=== PATIENT | female | born 1950 | race Caucasian/White ===

== ENCOUNTER 2018-05-10 14:02 | Inpatient (IN) | payer OTHER ==
--- NOTE | 2018-05-10 14:17 | PDOC ---
History of Present Illness - General Chief Complaint: Wound Stated Complaint: HEEL PAIN - History of Present Illness Initial Comments: The pt is a 67F w/ a history of CAD s/p CABG x3, HTN, T2DM, ESRD (iHD T,Th,Sa), BLE neuropathy who presents from [facility] for evaluation of a R heel wound. She reports having the wound since 07/2017, has been having daily wound care, but states that the physician at [facility] was concerned that it may be infected so sent her here for evaluation. Pt reports daily washing of wound and Santyl application. Pt denies fevers/chills, SORIANO, vision changes, chest pain, SOB, abdominal pain, N/ V/C/D. PMH: ESRD, T2DM, neuropathy, HTN, CAD, CHF, GERD, Schizophrenia, Renal osteodystrophy, HLD, hypothyroidism, asthma, s/p [place] type 2 PSH: CABG x3 Allergies: Gabapentin (AMS) SH: Denies x3 PCP: Dr. Azra Flores 05/10/18 14:42 Past History - Past Medical History Allergies/Adverse Reactions: Allergies Allergy/AdvReac Type Severity Reaction Status Date / Time gabapentin Allergy Verified 05/10/18 15:59 Review of Systems - Review of Systems Able to Perform ROS?: Yes Comments:: GENERAL/CONSTITUTIONAL: No fever or chills HEAD, EYES, EARS, NOSE AND THROAT: No change in vision or hearing. No sore throat CARDIOVASCULAR: No chest pain or shortness of breath RESPIRATORY: Denies cough, hemoptysis GASTROINTESTINAL: No nausea, vomiting, diarrhea or constipation MUSCULOSKELETAL: No joint or muscle swelling or pain. No neck or back pain SKIN: No rash NEUROLOGIC: No headache, vertigo, loss of consciousness, or change in strength/ sensation ENDOCRINE: No increased thirst. No abnormal weight change HEMATOLOGIC/LYMPHATIC: +coumadin ALLERGIC/IMMUNOLOGIC: No hives or skin allergy 05/10/18 14:17 Is the patient limited Mohawk proficient: No *Physical Exam - Vital Signs Vital Signs Temp Pulse Resp BP Pulse Ox 97.9 F 65 19 144/72 98 05/10/18 14:02 05/10/18 14:02 05/10/18 14:02 05/10/18 14:02 05/10/18 14:02 05/10/18 15:35 - Physical Exam Comments: GENERAL: Awake, alert, and oriented to person/place/time, in no acute distress HEAD: No signs of trauma, normocephalic, atraumatic EYES: PERRLA, EOMI, sclera anicteric, conjunctiva clear ENT: Hearing grossly normal, nares patent, oropharynx clear without exudates. No uvular deviation. Moist mucosa LUNGS: No distress, speaks full sentences, clear to auscultation bilaterally CHEST: R dialysis catheter in place w/o surrounding erythema and no surrounding TTP HEART: Regular rate and rhythm, normal S1 and S2, no murmurs appreciated ABDOMEN: Soft, nontender, normoactive bowel sounds. No guarding, no rebound EXTREMITIES: R heel wound w/ small fibrinous exudate, healthy appearing/ granulated bed, surrounding fluctuance, no warmth/tracking erythema NEUROLOGICAL: Cranial nerves II through XII grossly intact. Normal speech, BLE decreased sensation to mid-hernández SKIN: Warm, diffuse ecchymosis, wound as above 05/10/18 14:17 ED Treatment Course - LABORATORY CBC & Chemistry Diagram: 05/10/18 15:10 05/10/18 15:10 Medical Decision Making - Medical Decision Making The pt is a 67F w/ a history of T2DM, ESRD (iHD last 05/08/18), CAD s/p CABG x3, HTN who presents for evaluation of a R heel wound ED Course CMP, CBC, ESR, CRP, Blood cultures Wound culture CXR ECG 05/10/18 15:02 Mild leukocytosis to 13.1 Hgb 10.3, no indication for transfusion at this time INR therapeutic at 2.7 Cr 4.2, expected as ESRD LFTs wnl CRP mildly elevated to 0.8 ESR elevated 51 Will give Vanc and Unasyn Case discussed w/ Dr. Kent who accepted the patient for admission -Will place consult order for Dr. Hernandes for ID 05/10/18 16:02 *DC/Admit/Observation/Transfer Diagnosis at time of Disposition: Wound of foot, ESRD (end stage renal disease), S/P CABG x 3 Diabetes Qualifiers: Diabetes mellitus type: type 2 Diabetes mellitus superintendent container terminal insulin use: without superintendent container terminal use Diabetes mellitus complication status: with unspecified complications Qualified Code(s): E11.8 - Type 2 diabetes mellitus with unspecified complications Asthma Qualifiers: Asthma severity: unspecified severity Asthma persistence: intermittent Asthma complication type: unspecified Qualified Code(s): J45.20 - Mild intermittent asthma, uncomplicated GERD (gastroesophageal reflux disease) Qualifiers: Esophagitis presence: esophagitis presence not specified Qualified Code(s): K21.9 - Gastro-esophageal reflux disease without esophagitis - Discharge Dispostion Condition at time of disposition: Fair Decision to Admit order: Yes - Referrals Referrals: Azra Flores [Primary Care Provider] - - Patient Instructions - Post Discharge Activity
[2018-05-10 15:23] VITALS: BMI 43.2
[2018-05-10] MEDS ORDERED: ACETAMINOPHEN 325 MG TABLET (FP) PO ONE (15:32)
[2018-05-10 15:40] LABS: BASO % 0.6 % (0-2.0); EOS % 2.6 % (0-4.5); HEMATOCRIT 30.9 % (32.4-45.2); HEMOGLOBIN 10.3 GM/dL (10.7-15.3); LYMPH % 11.3 % (8-40); MCH 32.6 pg (25.7-33.7); MCHC 33.4 g/dl (32.0-36.0); MEAN CELL VOLUME 97.5 fl (80-96); MEAN PLT VOLUME 8.7 fl (7.5-11.1); MONO % 5.3 % (3.8-10.2); NEUT % 80.2 % (42.8-82.8); PLATELET COUNT 218 K/MM3 (134-434); RBC 3.17 M/mm3 (3.60-5.2); RDW 20.9 % (11.6-15.6); WHITE BLOOD COUNT 13.1 K/mm3 (4.0-10.0)
--- NOTE | 2018-05-10 15:51 | PDOC ---
Attending Attestation - Resident Resident Name: Darius Coreas - ED Attending Attestation I have performed the following: I have examined & evaluated the patient, The case was reviewed & discussed with the resident, I agree w/resident's findings & plan - HPI HPI: 05/10/18 15:45 67y/o F diabetic complicated by neuropathy, h/o R heel ulcer requiring debridement 3 months ago presents now from [place] for evaluation of R heel ulcer with increasing pain. no f/c, ? new discharge. - Physicial Exam PE: 05/10/18 15:51 afebrile, nad conversant RLE: R heel ulcer with well perfused tissue but surrounding fluctuance, small eschar, slight active bleeding/yellow discharge on gauze. no circumferential foot swelling/erythema/warmth - Medical Decision Making 05/10/18 15:52 67-year-old female with history of diabetic foot ulcer requiring debridement presents now from correction with change in appearance and worsening impression of ulcer. HD stable here with fever, tissue not obviously infected but ulcer likely progressed since last debridement. labs xray likely admit for surgery/podiatry eval 05/10/18 16:31 wbc 13, slightly elevated esr/crp. cr 4, unclear baseline. received abx, xray pending proceed with admit for wound care/surgery consult
[2018-05-10 15:53] LABS: INR 2.74 (0.83-1.09); PROTHROMBIN TIME (PATIENT) 32.7 SEC (9.7-13.0)
[2018-05-10 15:56] LABS: ACTIVATED PTT 32.6 SECONDS (25.2-36.5)
[2018-05-10 16:10] LABS: ALBUMIN 2.8 g/dl (3.4-5.0); ALK PHOS 80 U/L (45-117); ANION GAP 8 MMOL/L (8-16); BILIRUBIN,TOTAL 0.3 mg/dL (0.2-1); BLOOD UREA NITROGEN 45 mg/dL (7-18); CALCIUM 8.8 mg/dL (8.5-10.1); CHLORIDE 100 mmol/L (98-107); CO2 25 mmol/L (21-32); CREATININE 4.2 mg/dL (0.55-1.3); GLUCOSE,RANDOM 146 mg/dL (74-106); SGOT/AST 14 U/L (15-37); SGPT/ALT 13 U/L (13-61); SODIUM 133 mmol/L (136-145); TOT PROT 5.6 g/dl (6.4-8.2)
[2018-05-10] MEDS ORDERED: AMPICILLIN NA/SULBACTAM NA 1.5 GM in SODIUM CHLORIDE 100 ML IVPB ONE (16:32)
[2018-05-10] MEDS ORDERED: VANCOMYCIN 1,000 MG in DEXTROSE 5%-WATER - 250 ML IVPB ONE (16:32)
[2018-05-10 18:47] LABS: ANISOCYTOSIS 2+; PLATELET ESTIMATE ADEQUATE
--- NOTE | 2018-05-10 18:49 | HP ---
Admitting History and Physical - Primary Care Physician PCP: Renée Kent - Admission History of Present Illness: 67F w/ a history of CAD s/p CABG x3, HTN, T2DM, ESRD (iHD T,Th,Sa), BLE neuropathy who presents from [facility] for evaluation of a R heel wound. She reports having the wound since 07/2017, has been having daily wound care, but states that the physician at [facility] was concerned that it may be infected so sent her here for evaluation. Pt reports daily washing of wound and Santyl application. Pt denies fevers/chills, SORIANO, vision changes, chest pain, SOB, abdominal pain, N/ V/C/D. PMH: ESRD, T2DM, neuropathy, HTN, CAD, CHF, GERD, Schizophrenia, Renal osteodystrophy, HLD, hypothyroidism, asthma, s/p ME type 2 PSH: CABG x3 - Past Medical History Cardiovascular: Yes: HTN Renal/: Yes: Renal Failure Endocrine: Yes: Diabetes Mellitus - Smoking History Smoking history: Former smoker Have you smoked in the past 12 months: No - Alcohol/Substance Use Hx Alcohol Use: No Home Medications - Allergies Allergies/Adverse Reactions: Allergies Allergy/AdvReac Type Severity Reaction Status Date / Time gabapentin Allergy Verified 05/10/18 15:59 - Home Medications Home Medications: Ambulatory Orders Acetaminophen W/ Codeine #3 [Tylenol # 3 -] 1 tab PO Q6H 05/10/18 Acetaminophen [Tylenol] 325 mg PO BID 05/10/18 Bisacodyl [Dulcolax -] 10 mg PO ONCE 05/10/18 Duloxetine HCl [Cymbalta] 20 mg PO DAILY 05/10/18 Fluticasone/Salmeterol [Airduo Respiclick 113-14 Mcg] 1 each IH DAILY 05/10/18 Furosemide 60 mg PO DAILY 05/10/18 Insulin Glargine,Hum.rec.anlog [Basaglar Kwikpen U-100] 30 unit SQ DAILY Levothyroxine [Synthroid -] 75 mcg PO DAILY 05/10/18 Lorazepam [Ativan] 1 mg PO ASDIR 05/10/18 Magnesium Hydrox 2400MG/30Ml [Milk of Magnesia -] 30 ml PO ONCE 05/10/18 Metoprolol Tartrate 50 mg PO BID 05/10/18 Novolog - 05/10/18 Nystatin 100,000 unit PO BID 05/10/18 Omeprazole Magnesium [Prilosec Otc] 20 mg PO DAILY 05/10/18 Ramipril [Altace] 5 mg PO DAILY 05/10/18 Sevelamer HCl [Renagel] 800 mg PO TID 05/10/18 Silver Sulfadiazine 1% Top Cr [Silvadene -] 1 applic TP DAILY 05/10/18 Simvastatin 20 mg PO DAILY 05/10/18 Tiotropium [place] [Spiriva] 1 inh PO DAILY 05/10/18 Warfarin Na [Coumadin] 2.5 mg PO HS 05/10/18 Zinc Sulfate [Zinc-220] 220 mg PO DAILY 05/10/18 Piperacillin/Tazob 2.25 gm [Zosyn -] 2.25 gm IVPB Q6H-IV vial 05/13/18 Physical Examination Vital Signs: Vital Signs Temperature 97.9 F 05/10/18 14:02 Pulse Rate 65 05/10/18 14:02 Respiratory Rate 19 05/10/18 14:02 Blood Pressure 144/72 05/10/18 14:02 O2 Sat by Pulse Oximetry (%) 98 05/10/18 14:02 Constitutional: Yes: No Distress HENT: Yes: Atraumatic Neck: Yes: Supple Cardiovascular: Yes: Regular Rate and Rhythm Respiratory: Yes: CTA Bilaterally Gastrointestinal: Yes: Normal Bowel Sounds Peripheral Pulses WNL: Yes Neurological: Yes: Alert, Oriented Labs: CBC, BMP 05/10/18 15:10 05/10/18 15:10 Imaging - Results X-ray: Report Reviewed Problem List - Problems (1) Asthma Assessment/Plan: on inhalers Code(s): J45.909 - UNSPECIFIED ASTHMA, UNCOMPLICATED Qualifiers: Asthma severity: unspecified severity Asthma persistence: intermittent Asthma complication type: unspecified Qualified Code(s): J45.20 - Mild intermittent asthma, uncomplicated (2) Diabetes Assessment/Plan: on meds bgms Code(s): E11.9 - TYPE 2 DIABETES MELLITUS WITHOUT COMPLICATIONS Qualifiers: Diabetes mellitus type: type 2 Diabetes mellitus termite treater helper insulin use: without termite treater helper use Diabetes mellitus complication status: with unspecified complications Qualified Code(s): E11.8 - Type 2 diabetes mellitus with unspecified complications (3) ESRD (end stage renal disease) Assessment/Plan: on HD Code(s): N18.6 - END STAGE RENAL DISEASE (4) GERD (gastroesophageal reflux disease) Code(s): K21.9 - GASTRO-ESOPHAGEAL REFLUX DISEASE WITHOUT ESOPHAGITIS Qualifiers: Esophagitis presence: esophagitis presence not specified Qualified Code(s) : K21.9 - Gastro-esophageal reflux disease without esophagitis (5) S/P CABG x 3 Code(s): Z95.1 - PRESENCE OF AORTOCORONARY BYPASS GRAFT (6) Wound of foot Assessment/Plan: iv abx id consult Code(s): S91.309A - UNSPECIFIED OPEN WOUND, UNSPECIFIED FOOT, INITIAL ENCOUNTER Assessment/Plan Laboratory Tests 05/10/18 05/10/18 05/10/18 15:10 15:10 15:10 WBC 13.1 H RBC 3.17 L Hgb 10.3 L Hct 30.9 L MCV 97.5 H MCH 32.6 MCHC 33.4 RDW 20.9 H Plt Count 218 MPV 8.7 Absolute Neuts (auto) 10.5 H Neutrophils % 80.2 Lymphocytes % 11.3 Monocytes % 5.3 Eosinophils % 2.6 Basophils % 0.6 Nucleated RBC % 0 Platelet Estimate Adequate Anisocytosis 2+ ESR PT with INR 32.70 H INR 2.74 H PTT (Actin FS) 32.6 Sodium 133 L Potassium 5.0 Chloride 100 Carbon Dioxide 25 Anion Gap 8 BUN 45 H Creatinine 4.2 H Creat Clearance w eGFR 10.59 Random Glucose 146 H Calcium 8.8 Total Bilirubin 0.3 AST 14 L ALT 13 Alkaline Phosphatase 80 C-Reactive Protein Total Protein 5.6 L Albumin 2.8 L Blood Type Antibody Screen 05/10/18 05/10/18 05/10/18 15:10 15:10 15:10 WBC RBC Hgb Hct MCV MCH MCHC RDW Plt Count MPV Absolute Neuts (auto) Neutrophils % Lymphocytes % Monocytes % Eosinophils % Basophils % Nucleated RBC % Platelet Estimate Anisocytosis ESR PT with INR Cancelled INR Cancelled PTT (Actin FS) Sodium Potassium Chloride Carbon Dioxide Anion Gap BUN Creatinine Creat Clearance w eGFR Random Glucose Calcium Total Bilirubin AST ALT Alkaline Phosphatase C-Reactive Protein 0.8 H Total Protein Albumin Blood Type A POSITIVE Antibody Screen Negative 05/10/18 15:10 WBC RBC Hgb Hct MCV MCH MCHC RDW Plt Count MPV Absolute Neuts (auto) Neutrophils % Lymphocytes % Monocytes % Eosinophils % Basophils % Nucleated RBC % Platelet Estimate Anisocytosis ESR 51 H PT with INR INR PTT (Actin FS) Sodium Potassium Chloride Carbon Dioxide Anion Gap BUN Creatinine Creat Clearance w eGFR Random Glucose Calcium Total Bilirubin AST ALT Alkaline Phosphatase C-Reactive Protein Total Protein Albumin Blood Type Antibody Screen Active Medications Generic Name Dose Route Start Last Admin Trade Name Freq PRN Reason Stop Dose Admin Acetaminophen/Codeine Phosphate 1 tab 05/10/18 22:19 05/13/18 15:41 Tylenol # 3 - PO 1 tab Q6H PRN Administration PAIN LEVEL 4 - 6 Atorvastatin Calcium 10 mg 05/10/18 22:00 05/12/18 22:22 Lipitor - PO 10 mg HS NICOLE Administration Collagenase 1 applic 05/13/18 10:00 Santyl - TP DAILY [facility] Protocol Docusate Sodium 100 mg 05/10/18 22:00 05/13/18 16:39 Colace - PO Not Given BID NICOLE Duloxetine HCl 20 mg 05/11/18 10:00 05/13/18 16:37 Cymbalta - PO 20 mg DAILY NICOLE Administration Furosemide 60 mg 05/11/18 12:57 05/13/18 16:38 Lasix - PO 60 mg DAILY NICOLE Administration Heparin Sodium (Porcine) 5,000 unit 05/10/18 22:00 05/13/18 16:39 Heparin - SQ Not Given BID NICOLE Piperacillin Sod/Tazobactam 50 mls @ 100 mls/hr 05/11/18 15:00 05/13/18 16:40 Sod 2.25 gm/ Dextrose IVPB 100 mls/hr Q6H-IV NICOLE Administration Protocol Insulin Aspart 1 vial 05/10/18 22:00 05/13/18 13:21 Novolog Vial Sliding Scale - SQ Not Given ACHS [facility] Protocol Insulin Detemir 30 units 05/11/18 07:00 05/13/18 06:20 Levemir Vial SQ Not Given ACBK NICOLE Insulin Detemir 30 units 05/11/18 07:00 05/13/18 06:19 Levemir Vial SQ Not Given ACBK [facility] Levothyroxine Sodium 75 mcg 05/11/18 07:00 05/13/18 06:19 Synthroid - PO 75 mcg ACBK NICOLE Administration Metoprolol Tartrate 50 mg 05/10/18 22:00 05/13/18 16:44 Lopressor - PO Not Given BID NICOLE Non-Formulary Medication 1 each 05/11/18 10:00 Fluticasone/Salmeterol [Airduo Respiclick 113-14 Mcg] IH DAILY [facility] Nystatin 1 applic 05/11/18 10:00 05/12/18 22:24 Nystop Powder - TP 1 applic BID NICOLE Administration Ondansetron HCl 4 mg 05/13/18 16:31 05/13/18 16:51 Zofran Injection IVPB 4 mg Q4H PRN Administration NAUSEA AND/OR VOMITING Pantoprazole Sodium 20 mg 05/11/18 10:00 05/13/18 16:39 Protonix - PO 20 mg DAILY NICOLE Administration Ramipril 5 mg 05/11/18 10:00 05/13/18 16:37 Altace - PO 5 mg DAILY NICOLE Administration Sevelamer Carbonate 800 mg 05/11/18 08:00 05/13/18 16:39 Renvela - PO Not Given TIDCM [facility] Warfarin Sodium 2.5 mg 05/11/18 18:00 05/12/18 17:27 Coumadin - PO 2.5 mg DAILY@1800 NICOLE Administration
[2018-05-10] MEDS ORDERED: ACETAMINOPHEN WITH CODEINE 300MG/30MG TABLET PO SCH (22:00)
[2018-05-10] MEDS ORDERED: PATIENT'S OWN MEDICATION (NON-FORMULARY) (Sevelamer Hcl [Renagel] 800 MG) PO SCH (22:00)
[2018-05-10] MEDS: DOCUSATE SODIUM 100 MG CAPSULE (FP) PO SCH (22:55)
[2018-05-10] MEDS: HEPARIN NA (PORCINE) 5,000 UNITS/ML 1ML VIAL SQ SCH (22:55)
[2018-05-10] MEDS: ATORVASTATIN CA 10 MG TABLET (FP) PO SCH (22:56)
[2018-05-10] MEDS: INSULIN SLIDING SCALE (NOVOLOG) 1 VIAL SQ SCH (22:57)
[2018-05-10] MEDS: METOPROLOL TARTRATE 50 MG TABLET (FP) PO SCH (22:57)
[2018-05-10] MEDS: ACETAMINOPHEN WITH CODEINE 300MG/30MG TABLET PO PRN (23:02)
[2018-05-10] MEDS ORDERED: VANCOMYCIN 1 GRAM (PRE-DOCKED) 1,000 MG/250 ML BAG IVPB ONE (23:15)
[2018-05-11] MEDS: LEVOTHYROXINE NA 75 MCG TABLET (FP) PO SCH (06:05)
[2018-05-11] MEDS: ACETAMINOPHEN WITH CODEINE 300MG/30MG TABLET PO PRN ×3 (06:05→22:10)
[2018-05-11] MEDS: INSULIN SLIDING SCALE (NOVOLOG) 1 VIAL SQ SCH ×4 (06:08→22:21)
[2018-05-11] MEDS: INSULIN (LEVEMIR) 100 UNITS/ML UNITS SQ SCH ×2 (06:09→06:10)
[2018-05-11] MEDS: SEVELAMER CARBONATE 800 MG TAB (FP) PO SCH ×4 (07:58→17:50)
[2018-05-11 08:26] LABS: BASO % 0.5 % (0-2.0); EOS % 4.1 % (0-4.5); HEMATOCRIT 29.4 % (32.4-45.2); HEMOGLOBIN 9.8 GM/dL (10.7-15.3); LYMPH % 11.7 % (8-40); MCH 32.3 pg (25.7-33.7); MCHC 33.3 g/dl (32.0-36.0); MEAN CELL VOLUME 97.1 fl (80-96); MEAN PLT VOLUME 8.7 fl (7.5-11.1); MONO % 6.1 % (3.8-10.2); NEUT % 77.6 % (42.8-82.8); PLATELET COUNT 221 K/MM3 (134-434); RBC 3.03 M/mm3 (3.60-5.2); RDW 21.3 % (11.6-15.6); WHITE BLOOD COUNT 13.1 K/mm3 (4.0-10.0)
[2018-05-11 08:32] LABS: INR 2.94 (0.83-1.09); PROTHROMBIN TIME (PATIENT) 35.1 SEC (9.7-13.0)
[2018-05-11 08:57] LABS: ALBUMIN 2.7 g/dl (3.4-5.0); ALK PHOS 77 U/L (45-117); ANION GAP 9 MMOL/L (8-16); BILIRUBIN,TOTAL 0.4 mg/dL (0.2-1); BLOOD UREA NITROGEN 52 mg/dL (7-18); CALCIUM 8.7 mg/dL (8.5-10.1); CHLORIDE 100 mmol/L (98-107); CO2 25 mmol/L (21-32); CREATININE 4.5 mg/dL (0.55-1.3); GLUCOSE,RANDOM 79 mg/dL (74-106); POTASSIUM 4.3 mmol/L (3.5-5.1); SGOT/AST 12 U/L (15-37); SGPT/ALT 12 U/L (13-61); SODIUM 134 mmol/L (136-145); TOT PROT 5.6 g/dl (6.4-8.2)
[2018-05-11] MEDS ORDERED: PT OWN MED DRAWER 7, Y5N ONE (09:34)
[2018-05-11] MEDS: NYSTATIN POWDER 100,000 UNITS/GM - 15 GM TOPICAL POWDER TP SCH ×2 (09:39→22:12)
[2018-05-11] MEDS: DOCUSATE SODIUM 100 MG CAPSULE (FP) PO SCH ×2 (09:40→22:11)
[2018-05-11] MEDS: METOPROLOL TARTRATE 50 MG TABLET (FP) PO SCH ×2 (09:40→22:12)
[2018-05-11] MEDS: HEPARIN NA (PORCINE) 5,000 UNITS/ML 1ML VIAL SQ SCH ×2 (09:40→22:11)
[2018-05-11] MEDS: RAMIPRIL 5 MG CAPSULE (FP) PO SCH (09:41)
[2018-05-11] MEDS: DULoxetine HCL 20 MG CAPSULE.DR (FP) PO SCH (09:41)
[2018-05-11] MEDS: PANTOPRAZOLE 20 MG TABLET (FP) PO SCH (09:41)
--- NOTE | 2018-05-11 09:50 | CONSULT ---
Consultation: CONSULT REQUEST: Nephrology HISTORY OF PRESENT ILLNESS: Patient is a 67 yo F with a PMHx of CAD, s/p CABG x3 , HTN, T2DM, ESRD (iHD T,Th,Sa), BLE neuropathy who presents from [facility] for evaluation of a R heel wound that she had since July 2017. She said the physician at [facility] was concerned when looking at it and sent her to [place] for possible infection of wound. She said she's been having daily wound care and applies Santyl daily. Patient currently has no other complaints. She denies SOB, chest pain, nausea, vomiting, dizziness, fevers, chills urinary symptoms, diarrhea, headaches. She said she urinates 2x a day and her inpatient nursing aide is Dr. Chong in [place]. PMH: ESRD, T2DM, neuropathy, HTN, CAD, CHF, GERD, Schizophrenia, Renal osteodystrophy, HLD, hypothyroidism, asthma, s/p [place] type 2 PSH: CABG x3 Allergies: Gabapentin SH: Denies x3 REVIEW OF SYSTEMS: CONSTITUTIONAL: Absent: fever, chills, diaphoresis, generalized weakness, malaise, loss of appetite, weight change HEENT: Absent: nasal congestion, throat pain, throat swelling, ear pain, eye pain, visual changes CARDIOVASCULAR: Absent: chest pain, syncope, palpitations, irregular heart rate, lightheadedness , peripheral edema RESPIRATORY: Absent: cough, shortness of breath, dyspnea with exertion, orthopnea, wheezing, stridor, hemoptysis GASTROINTESTINAL: Absent: abdominal pain, abdominal distension, nausea, vomiting, diarrhea, constipation GENITOURINARY: Absent: dysuria, frequency, urgency, hesitancy, hematuria, flank pain, genital pain ENDOCRINE: Absent: unexplained weight gain, unexplained weight loss, heat intolerance, cold intolerance NEUROLOGIC: Absent: headache, focal weakness or paresthesias, dizziness, unsteady gait, seizure, mental status changes, bladder or bowel incontinence PHYSICAL EXAMINATION Vital Signs - 24 hr 05/10/18 05/10/18 05/10/18 14:02 18:51 19:05 Temperature 97.9 F 98.5 F Pulse Rate 65 75 69 Respiratory 19 18 18 Rate Blood Pressure 144/72 157/97 162/89 O2 Sat by Pulse 98 95 Oximetry (%) 05/11/18 05/11/18 05:38 08:33 Temperature 98.2 F 98.6 F Pulse Rate 77 75 Respiratory 20 18 Rate Blood Pressure 139/69 134/78 O2 Sat by Pulse Oximetry (%) GENERAL: a/o x 3, comfortable in bed, nad HEAD: Normal with no signs of trauma. EYES: Pupils equal, round and reactive to light, extraocular movements intact, sclera anicteric, conjunctiva clear. No lid lag. EARS, NOSE, THROAT: oropharynx clear without exudates. Moist mucous membranes. NECK: supple without lymphadenopathy, JVD, or masses. LUNGS: Breath sounds equal, clear to auscultation bilaterally. No wheezes, and no crackles. HEART: Regular rate and rhythm, normal S1 and S2 without murmur, rub or gallop. ABDOMEN: Soft, nontender, not distended, normoactive bowel sounds, no guarding, no rebound, no masses. LOWER EXTREMITIES: 2+ pulses, No peripheral edema. R heel ulcer covered in dressing. NEUROLOGICAL: Cranial nerves II-XII intact. Normal speech. Normal gait. Laboratory Results - last 24 hr 05/10/18 05/10/18 05/10/18 15:10 15:10 15:10 WBC 13.1 H RBC 3.17 L Hgb 10.3 L Hct 30.9 L MCV 97.5 H MCH 32.6 MCHC 33.4 RDW 20.9 H Plt Count 218 MPV 8.7 Absolute Neuts (auto) 10.5 H Neutrophils % 80.2 Lymphocytes % 11.3 Monocytes % 5.3 Eosinophils % 2.6 Basophils % 0.6 Nucleated RBC % 0 Platelet Estimate Adequate Anisocytosis 2+ ESR PT with INR 32.70 H INR 2.74 H PTT (Actin FS) 32.6 Sodium 133 L Potassium 5.0 Chloride 100 Carbon Dioxide 25 Anion Gap 8 BUN 45 H Creatinine 4.2 H Creat Clearance w eGFR 10.59 POC Glucometer Random Glucose 146 H Calcium 8.8 Total Bilirubin 0.3 AST 14 L ALT 13 Alkaline Phosphatase 80 C-Reactive Protein Total Protein 5.6 L Albumin 2.8 L Blood Type Antibody Screen 05/10/18 05/10/18 05/10/18 15:10 15:10 15:10 WBC RBC Hgb Hct MCV MCH MCHC RDW Plt Count MPV Absolute Neuts (auto) Neutrophils % Lymphocytes % Monocytes % Eosinophils % Basophils % Nucleated RBC % Platelet Estimate Anisocytosis ESR PT with INR Cancelled INR Cancelled PTT (Actin FS) Sodium Potassium Chloride Carbon Dioxide Anion Gap BUN Creatinine Creat Clearance w eGFR POC Glucometer Random Glucose Calcium Total Bilirubin AST ALT Alkaline Phosphatase C-Reactive Protein 0.8 H Total Protein Albumin Blood Type A POSITIVE Antibody Screen Negative 05/10/18 05/10/18 05/11/18 15:10 22:54 06:06 WBC RBC Hgb Hct MCV MCH MCHC RDW Plt Count MPV Absolute Neuts (auto) Neutrophils % Lymphocytes % Monocytes % Eosinophils % Basophils % Nucleated RBC % Platelet Estimate Anisocytosis ESR 51 H PT with INR INR PTT (Actin FS) Sodium Potassium Chloride Carbon Dioxide Anion Gap BUN Creatinine Creat Clearance w eGFR POC Glucometer 147 87 Random Glucose Calcium Total Bilirubin AST ALT Alkaline Phosphatase C-Reactive Protein Total Protein Albumin Blood Type Antibody Screen 05/11/18 05/11/18 05/11/18 07:26 07:26 07:26 WBC 13.1 H RBC 3.03 L Hgb 9.8 L Hct 29.4 L MCV 97.1 H MCH 32.3 MCHC 33.3 RDW 21.3 H Plt Count 221 MPV 8.7 Absolute Neuts (auto) 10.2 H Neutrophils % 77.6 Lymphocytes % 11.7 Monocytes % 6.1 Eosinophils % 4.1 Basophils % 0.5 Nucleated RBC % 0 Platelet Estimate Anisocytosis ESR PT with INR 35.10 H INR 2.94 H PTT (Actin FS) Sodium 134 L Potassium 4.3 Chloride 100 Carbon Dioxide 25 Anion Gap 9 BUN 52 H Creatinine 4.5 H Creat Clearance w eGFR 9.78 POC Glucometer Random Glucose 79 Calcium 8.7 Total Bilirubin 0.4 AST 12 L ALT 12 L Alkaline Phosphatase 77 C-Reactive Protein Total Protein 5.6 L Albumin 2.7 L Blood Type Antibody Screen Active Medications Generic Name Dose Route Start Last Admin Trade Name Freq PRN Reason Stop Dose Admin Acetaminophen/Codeine Phosphate 1 tab 05/10/18 22:19 05/11/18 06:05 Tylenol # 3 - PO 1 tab Q6H PRN Administration PAIN LEVEL 4 - 6 Atorvastatin Calcium 10 mg 05/10/18 22:00 05/10/18 22:56 Lipitor - PO 10 mg HS NICOLE Administration Docusate Sodium 100 mg 05/10/18 22:00 05/11/18 09:40 Colace - PO 100 mg BID NICOLE Administration Duloxetine HCl 20 mg 03/26/19 10:00 05/11/18 09:41 Cymbalta - PO 20 mg DAILY NICOLE Administration Furosemide 20 mg 05/11/18 10:00 05/11/18 09:40 Lasix - PO 20 mg DAILY NICOLE Administration Heparin Sodium (Porcine) 5,000 unit 05/10/18 22:00 05/11/18 09:40 Heparin - SQ 5,000 unit BID [facility] Administration Insulin Aspart 1 vial 05/10/18 22:00 05/11/18 06:08 Novolog Vial Sliding Scale - SQ Not Given ACHS [facility] Protocol Insulin Detemir 30 units 05/11/18 07:00 05/11/18 06:09 Levemir Vial SQ Not Given ACBK [facility] Insulin Detemir 30 units 05/11/18 07:00 05/11/18 06:10 Levemir Vial SQ Not Given ACBK [facility] Levothyroxine Sodium 75 mcg 05/11/18 07:00 05/11/18 06:05 Synthroid - PO 75 mcg ACBK [facility] Administration Lorazepam 1 mg 05/10/18 20:30 Ativan - PO 05/10/18 20:31 ONCE ONE Metoprolol Tartrate 50 mg 05/10/18 22:00 05/11/18 09:40 Lopressor - PO 50 mg BID [facility] Administration Non-Formulary Medication 1 each 05/11/18 10:00 Fluticasone/Salmeterol [Airduo Respiclick 113-14 Mcg] IH DAILY [facility] Nystatin 1 applic 05/11/18 10:00 05/11/18 09:39 Nystop Powder - TP 1 applic BID [facility] Administration Pantoprazole Sodium 20 mg 05/11/18 10:00 05/11/18 09:41 Protonix - PO 20 mg DAILY [facility] Administration Ramipril 5 mg 05/11/18 10:00 05/11/18 09:41 Altace - PO 5 mg DAILY [facility] Administration Sevelamer Carbonate 800 mg 05/11/18 08:00 05/11/18 08:35 Renvela - PO Not Given TIDCM [facility] Warfarin Sodium 2.5 mg 05/11/18 18:00 Coumadin - PO DAILY@1800 [facility] ASSESSMENT/PLAN: 67 yo F with a PMHx of CAD, s/p CABG x3, HTN, T2DM, ESRD (iHD T,Th,Sa), BLE neuropathy who presents from [facility] for evaluation of a R heel wound #R Heel Foot Ulcer #ESRD #HTN #DM #Anemia #CHF #CAD s/p CABG x 3 -For dialysis today (usually TTS) -Monitor BMP -Mag, Phos ordered -avoid nephrotoxins -renal diet -Recommend Wound Care -Discussed with ID, Dr. Hernandes. He will manage ABx -random vanc level in the AM if Vanc is continued. Dispo: We will continue to follow the patient. Thank you for this consultative opportunity. Visit type - Emergency Visit Emergency Visit: Yes ED Registration Date: 05/10/18 Care time: The patient presented to the Emergency Department on the above date and was hospitalized for further evaluation of their emergent condition. - New Patient This patient is new to me today: Yes Date on this admission: 05/11/18 - Critical Care Critical Care patient: No
[2018-05-11] MEDS ORDERED: PATIENT'S OWN MEDICATION (NON-FORMULARY) (Insulin Glargine,Hum.Rec.Anlog [Basaglar Kwikpen SQ SCH (10:00)
[2018-05-11] MEDS ORDERED: PATIENT'S OWN MEDICATION (NON-FORMULARY) (Simvastatin [Simvastatin] 20 MG) PO SCH (10:00)
[2018-05-11] MEDS ORDERED: [UNRECOGNIZED DRUG - OTHER] IH SCH (10:00)
[2018-05-11] MEDS ORDERED: FLUTICASONE IH SCH (10:00)
[2018-05-11] MEDS ORDERED: PATIENT'S OWN MEDICATION (NON-FORMULARY) (Omeprazole Magnesium [Prilosec Otc] 20 MG) PO SCH (10:00)
[2018-05-11] MEDS ORDERED: SALMETEROL IH SCH (10:00)
[2018-05-11] MEDS ORDERED: FUROSEMIDE 20 MG TABLET (FP) PO SCH (10:00)
[2018-05-11] MEDS ORDERED: HEPARIN NA (PORCINE) 5,000 UNITS/ML 1ML VIAL IVPUSH ONE (12:51)
[2018-05-11] MEDS ORDERED: SODIUM CHLORIDE 250 ML IV PRN (12:51)
--- NOTE | 2018-05-11 12:57 | PN ---
Teaching Attending Note Name of Resident: Jose F Weaver (Nephrology) ATTENDING PHYSICIAN STATEMENT I saw and evaluated the patient. I reviewed the resident's note and discussed the case with the resident. I agree with the resident's findings and plan as documented. Nephrology Pt is a 67 year old female with pmhx of htn dm esrd who was sent in for foot ulcer. She is on HD 3 times per week via permacath. She denies chest pain or shortness of breath. She denies fevers or chills. She is on a TTS schedule and is due for HD today. pmhx esrd htn dm pshx afv allergies gabapentin ros negative family hx non contrib Current Medications Generic Name Dose Route Start Last Admin Trade Name Freq PRN Reason Stop Dose Admin Acetaminophen/Codeine Phosphate 1 tab 05/10/18 22:19 05/11/18 06:05 Tylenol # 3 - PO 1 tab Q6H PRN Administration PAIN LEVEL 4 - 6 Atorvastatin Calcium 10 mg 05/10/18 22:00 05/10/18 22:56 Lipitor - PO 10 mg HS NICOLE Administration Docusate Sodium 100 mg 05/10/18 22:00 05/11/18 09:40 Colace - PO 100 mg BID NICOLE Administration Duloxetine HCl 20 mg 05/11/18 10:00 05/11/18 09:41 Cymbalta - PO 20 mg DAILY N[facility]LE Administration Epoetin Hang 4,000 unit 05/11/18 12:51 Epogen - IVPUSH 05/11/18 12:52 ONCE ONE Furosemide 20 mg 05/11/18 10:00 05/11/18 09:40 Lasix - PO 20 mg DAILY NICOLE Administration Heparin Sodium (Porcine) 5,000 unit 05/10/18 22:00 05/11/18 09:40 Heparin - SQ 5,000 unit BID NICOLE Administration Heparin Sodium (Porcine) 1,000 unit 05/11/18 12:51 Heparin - IVPUSH 05/11/18 12:52 ONCE ONE Heparin Sodium (Porcine) 500 unit 05/11/18 13:00 Heparin - IVPUSH 05/11/18 15:01 Q1H NICOLE Sodium Chloride 250 mls @ 3,000 mls/hr 05/11/18 12:51 Normal Saline - IV 05/12/18 12:51 PRN PRN Hypotension during Dialysis Insulin Aspart 1 vial 05/10/18 22:00 05/11/18 11:38 Novolog Vial Sliding Scale - SQ Not Given ACHS [facility] Protocol Insulin Detemir 30 units 05/11/18 07:00 05/11/18 06:09 Levemir Vial SQ Not Given ACBK [facility] Insulin Detemir 30 units 05/11/18 07:00 05/11/18 06:10 Levemir Vial SQ Not Given ACBK [facility] Levothyroxine Sodium 75 mcg 05/11/18 07:00 05/11/18 06:05 Synthroid - PO 75 mcg ACBK [facility] Administration Lorazepam 1 mg 05/10/18 20:30 Ativan - PO 05/10/18 20:31 ONCE ONE Metoprolol Tartrate 50 mg 05/10/18 22:00 05/11/18 09:40 Lopressor - PO 50 mg BID [facility] Administration Non-Formulary Medication 1 each 05/11/18 10:00 Fluticasone/Salmeterol [Airduo Respiclick 113-14 Mcg] IH DAILY [facility] Nystatin 1 applic 05/11/18 10:00 05/11/18 09:39 Nystop Powder - TP 1 applic BID [facility] Administration Pantoprazole Sodium 20 mg 05/11/18 10:00 05/11/18 09:41 Protonix - PO 20 mg DAILY [facility] Administration Ramipril 5 mg 05/11/18 10:00 05/11/18 09:41 Altace - PO 5 mg DAILY [facility] Administration Sevelamer Carbonate 800 mg 05/11/18 08:00 05/11/18 11:38 Renvela - PO Not Given TIDCM [facility] Warfarin Sodium 2.5 mg 05/11/18 18:00 Coumadin - PO DAILY@1800 [facility] Laboratory Tests 05/10/18 05/11/18 05/11/18 15:10 07:26 07:26 Hgb 10.3 L 9.8 L Sodium 134 L BUN 52 H Creatinine 4.5 H cardio s1s2 reg pulm clear gi soft ext plus 1 edema neuro awake and alert skin venous stasis changes chest wall permacath right am fistula no thrill or bruit Impression 1. ESRD 2. HTN 3. DM 4. foot ulcer 5. obesity 6. anemia Plan - will arrange for HD today - called HD unit for orders - pt on 60 mg of lasix, will adjust dose - HD 3:30 permacath, 2 k bath - discussed with ID, they will address abx
--- NOTE | 2018-05-11 13:20 | CON.ID ---
Consult Consult Specialty:: infectious diseases Referred by:: Reason for Consultation:: rt heel wound - History of Present Illness Chief Complaint: non healing rt heel wound History of Present Illness: 67F w/ a history of CAD s/p CABG x3, HTN, T2DM, ESRD , BLE neuropathy who presents from [facility] for evaluation of a R heel wound. She reports having the wound since 07/2017, has been having daily wound care, but states that the physician at [facility] was concerned that it may be infected so sent her here for evaluation. Pt reports daily washing of wound and Santyl application. the wound looks chronic and dos have pus in the wound.patient is a dialysis patient and the plan is to get dialysis currently patient is stable Pt denies fevers/chills, SORIANO, vision changes, chest pain, SOB, abdominal pain, N/ V/C/D. - History Source History Provided By: Patient Limitations to Obtaining History: No Limitations - Past Medical History Cardio/Vascular: Yes: HTN Renal/: Yes: Renal Failure ...: No Endocrine: Yes: Diabetes Mellitus - Alcohol/Substance Use Hx Alcohol Use: No - Smoking History Smoking history: Former smoker Have you smoked in the past 12 months: No Home Medications - Allergies Allergies/Adverse Reactions: Allergies Allergy/AdvReac Type Severity Reaction Status Date / Time gabapentin Allergy Verified 05/10/18 15:59 - Home Medications Home Medications: Ambulatory Orders Acetaminophen W/ Codeine #3 [Tylenol # 3 -] 1 tab PO Q6H 05/10/18 Acetaminophen [Tylenol] 325 mg PO BID 05/10/18 Bisacodyl [Dulcolax -] 10 mg PO ONCE 05/10/18 Duloxetine HCl [Cymbalta] 20 mg PO DAILY 05/10/18 Fluticasone/Salmeterol [Airduo Respiclick 113-14 Mcg] 1 each IH DAILY 05/10/18 Furosemide 60 mg PO DAILY 05/10/18 Insulin Glargine,Hum.rec.anlog [Basaglar Kwikpen U-100] 30 unit SQ DAILY Levothyroxine [Synthroid -] 75 mcg PO DAILY 05/10/18 Lorazepam [Ativan] 1 mg PO ASDIR 05/10/18 Magnesium Hydrox 2400MG/30Ml [Milk of Magnesia -] 30 ml PO ONCE 05/10/18 Metoprolol Tartrate 50 mg PO BID 05/10/18 Novolog - 05/10/18 Nystatin 100,000 unit PO BID 05/10/18 Omeprazole Magnesium [Prilosec Otc] 20 mg PO DAILY 05/10/18 Ramipril [Altace] 5 mg PO DAILY 05/10/18 Sevelamer HCl [Renagel] 800 mg PO TID 05/10/18 Silver Sulfadiazine 1% Top Cr [Silvadene -] 1 applic TP DAILY 05/10/18 Simvastatin 20 mg PO DAILY 05/10/18 Tiotropium May [Spiriva] 1 inh PO DAILY 05/10/18 Warfarin Na [Coumadin] 2.5 mg PO HS 05/10/18 Zinc Sulfate [Zinc-220] 220 mg PO DAILY 05/10/18 Review of Systems - Review of Systems Constitutional: reports: No Symptoms Eyes: reports: No Symptoms HENT: reports: No Symptoms Neck: reports: No Symptoms Cardiovascular: reports: No Symptoms Respiratory: reports: No Symptoms Gastrointestinal: reports: No Symptoms Genitourinary: reports: No Symptoms Musculoskeletal: reports: No Symptoms Integumentary: reports: Erythema (of the rt heel), Wound (rt heel) Neurological: reports: No Symptoms Endocrine: reports: No Symptoms Hematology/Lymphatic: reports: No Symptoms Psychiatric: reports: No Symptoms Physical Exam Vital Signs: Vital Signs Temperature 98.6 F 05/11/18 08:33 Pulse Rate 75 05/11/18 08:33 Respiratory Rate 18 05/11/18 08:33 Blood Pressure 134/78 05/11/18 08:33 O2 Sat by Pulse Oximetry (%) 95 05/10/18 18:51 Constitutional: Yes: Well Nourished, No Distress, Calm Cardiovascular: Yes: Regular Rate and Rhythm Respiratory: Yes: Regular, CTA Bilaterally Gastrointestinal: Yes: Normal Bowel Sounds, Soft Musculoskeletal: Yes: WNL Extremities: Yes: Other (heel wound) Integumentary: Yes: Erythema (rt heel), Other (wound /non healing ulcer) Wound/Incision: Yes: Dressing Removed, Other (wound with pus with denuded skin on the rt heel) Neurological: Yes: Alert, Oriented Psychiatric: Yes: Alert, Oriented Labs: CBC, BMP 05/11/18 07:26 05/11/18 07:26 Imaging - Results Chest X-ray: Report Reviewed, Image Reviewed X-ray: Report Reviewed, Image Reviewed Assessment/Plan Problem List - Problems (1) Asthma Code(s): J45.909 - UNSPECIFIED ASTHMA, UNCOMPLICATED Qualifiers: Asthma severity: unspecified severity Asthma persistence: intermittent Asthma complication type: unspecified Qualified Code(s): J45.20 - Mild intermittent asthma, uncomplicated (2) Diabetes Code(s): E11.9 - TYPE 2 DIABETES MELLITUS WITHOUT COMPLICATIONS Qualifiers: Diabetes mellitus type: type 2 Diabetes mellitus truck terminal manager insulin use: without long-term use Diabetes mellitus complication status: with unspecified complications Qualified Code(s): E11.8 - Type 2 diabetes mellitus with unspecified complications (3) ESRD (end stage renal disease) Code(s): N18.6 - END STAGE RENAL DISEASE (4) GERD (gastroesophageal reflux disease) Code(s): K21.9 - GASTRO-ESOPHAGEAL REFLUX DISEASE WITHOUT ESOPHAGITIS Qualifiers: Esophagitis presence: esophagitis presence not specified Qualified Code(s) : K21.9 - Gastro-esophageal reflux disease without esophagitis (5) S/P CABG x 3 Code(s): Z95.1 - PRESENCE OF AORTOCORONARY BYPASS GRAFT (6) Wound of foot Code(s): S91.309A - UNSPECIFIED OPEN WOUND, UNSPECIFIED FOOT, INITIAL ENCOUNTER plan will start patient on zosyn await for cx reports and sensitivities will order mri wound care dialysis
[2018-05-11] MEDS ORDERED: LORazepam 1 MG TABLET PO ONE (13:30)
[2018-05-11] MEDS ORDERED: PIPERACILLIN/TAZOBACTAM 2.25 GM VIAL IVPB ONE ×2 (13:33→20:17)
[2018-05-11] MEDS ORDERED: DEXTROSE 5%-WATER - 50 ML IVPB ONE ×2 (13:33→20:17)
[2018-05-11] MEDS ORDERED: EPOETIN ALFA 2,000 UNIT/1 ML VIAL IVPUSH ONE (14:00)
[2018-05-11] MEDS: HEPARIN NA (PORCINE) 5,000 UNITS/ML 1ML VIAL IVPUSH SCH ×3 (15:05→17:17)
[2018-05-11] MEDS: WARFARIN NA 2.5 MG TABLET (FP) PO SCH (17:48)
[2018-05-11] MEDS: PIPERACILLIN/TAZOB 2.25 GM 2.25 GM in DEXTROSE 5%-WATER - 50 ML IVPB SCH ×2 (17:50→22:11)
--- NOTE | 2018-05-11 18:29 | PN ---
Progress Note, Physician History of Present Illness: doing well - Current Medication List Current Medications: Active Medications Acetaminophen/Codeine Phosphate (Tylenol # 3 -) 1 tab PO Q6H PRN PRN Reason: PAIN LEVEL 4 - 6 Last Admin: 05/11/18 13:35 Dose: 1 tab Atorvastatin Calcium (Lipitor -) 10 mg PO HS [facility] Last Admin: 05/10/18 22:56 Dose: 10 mg Docusate Sodium (Colace -) 100 mg PO BID [facility] Last Admin: 05/11/18 09:40 Dose: 100 mg Duloxetine HCl (Cymbalta -) 20 mg PO DAILY [facility] Last Admin: 05/11/18 09:41 Dose: 20 mg Furosemide (Lasix -) 60 mg PO DAILY [facility] Heparin Sodium (Porcine) (Heparin -) 5,000 unit SQ BID [facility] Last Admin: 05/11/18 09:40 Dose: 5,000 unit Sodium Chloride (Normal Saline -) 250 mls @ 3,000 mls/hr IV PRN PRN PRN Reason: Hypotension during Dialysis Stop: 05/12/18 12:51 Piperacillin Sod/Tazobactam (Sod 2.25 gm/ Dextrose) 50 mls @ 100 mls/hr IVPB Q6H-IV [facility]; Protocol Last Admin: 05/11/18 17:50 Dose: 100 mls/hr Insulin Aspart (Novolog Vial Sliding Scale -) 1 vial SQ [facility]; Protocol Last Admin: 05/11/18 16:57 Dose: Not Given Insulin Detemir (Levemir Vial) 30 units SQ ACBK [facility] Last Admin: 05/11/18 06:09 Dose: Not Given Insulin Detemir (Levemir Vial) 30 units SQ ACBK [facility] Last Admin: 05/11/18 06:10 Dose: Not Given Levothyroxine Sodium (Synthroid -) 75 mcg PO ACBK [facility] Last Admin: 05/11/18 06:05 Dose: 75 mcg Metoprolol Tartrate (Lopressor -) 50 mg PO BID [facility] Last Admin: 05/11/18 09:40 Dose: 50 mg Non-Formulary Medication (Fluticasone/Salmeterol [Airduo Respiclick 113-14 Mcg] ) 1 each IH DAILY [facility] Nystatin (Nystop Powder -) 1 applic TP BID [facility] Last Admin: 03/26/19 09:39 Dose: 1 applic Pantoprazole Sodium (Protonix -) 20 mg PO DAILY [facility] Last Admin: 05/11/18 09:41 Dose: 20 mg Ramipril (Altace -) 5 mg PO DAILY [facility] Last Admin: 05/11/18 09:41 Dose: 5 mg Sevelamer Carbonate (Renvela -) 800 mg PO TIDCM [facility] Last Admin: 05/11/18 17:50 Dose: Not Given Warfarin Sodium (Coumadin -) 2.5 mg PO DAILY@1800 [facility] Last Admin: 05/11/18 17:48 Dose: 2.5 mg - Objective Vital Signs: Vital Signs Temperature 97.3 F L 05/11/18 14:22 Pulse Rate 77 05/11/18 17:10 Respiratory Rate 18 05/11/18 17:10 Blood Pressure 149/78 05/11/18 17:10 O2 Sat by Pulse Oximetry (%) 100 05/11/18 09:00 Constitutional: Yes: No Distress HENT: Yes: Atraumatic Neck: Yes: Supple Cardiovascular: Yes: Regular Rate and Rhythm Respiratory: Yes: CTA Bilaterally Extremities: Yes: Other (R heel wound) Neurological: Yes: Alert, Oriented Labs: CBC, BMP 05/11/18 07:26 05/11/18 07:26 INR, PTT INR 2.94 (0.83-1.09) H 05/11/18 07:26 Problem List - Problems (1) Asthma Assessment/Plan: on inhalers Code(s): J45.909 - UNSPECIFIED ASTHMA, UNCOMPLICATED Qualifiers: Asthma severity: unspecified severity Asthma persistence: intermittent Asthma complication type: unspecified Qualified Code(s): J45.20 - Mild intermittent asthma, uncomplicated (2) Diabetes Assessment/Plan: on meds bgms Code(s): E11.9 - TYPE 2 DIABETES MELLITUS WITHOUT COMPLICATIONS Qualifiers: Diabetes mellitus type: type 2 Diabetes mellitus long term care administrator insulin use: without penitentiary use Diabetes mellitus complication status: with unspecified complications Qualified Code(s): E11.8 - Type 2 diabetes mellitus with unspecified complications (3) ESRD (end stage renal disease) Assessment/Plan: on HD Code(s): N18.6 - END STAGE RENAL DISEASE (4) GERD (gastroesophageal reflux disease) Code(s): K21.9 - GASTRO-ESOPHAGEAL REFLUX DISEASE WITHOUT ESOPHAGITIS Qualifiers: Esophagitis presence: esophagitis presence not specified Qualified Code(s) : K21.9 - Gastro-esophageal reflux disease without esophagitis (5) S/P CABG x 3 Code(s): Z95.1 - PRESENCE OF AORTOCORONARY BYPASS GRAFT (6) Wound of foot Assessment/Plan: iv abx id consult Code(s): S91.309A - UNSPECIFIED OPEN WOUND, UNSPECIFIED FOOT, INITIAL ENCOUNTER
--- NOTE | 2018-05-11 21:59 | EKG ---
Test Reason : Blood Pressure : / mmHG Vent. Rate : 067 BPM Atrial Rate : 067 BPM P-R Int : 220 ms QRS Dur : 100 ms QT Int : 400 ms P-R-T Axes : 061 158 -25 degrees QTc Int : 422 ms SINUS RHYTHM WITH 1ST DEGREE A-V BLOCK RIGHT AXIS DEVIATION SEPTAL INFARCT , AGE UNDETERMINED ABNORMAL ECG NO PREVIOUS ECGS AVAILABLE Confirmed by MD SHANNAN, LUCERO ([id number]) on 05/11/2018 9:59:43 PM Referred By: ISAIAS WONG Confirmed By:LUCERO CAMPBELL MD
[2018-05-11] MEDS: ATORVASTATIN CA 10 MG TABLET (FP) PO SCH (22:12)
[2018-05-12] MEDS ORDERED: PIPERACILLIN/TAZOBACTAM 2.25 GM VIAL IVPB ONE ×4 (03:13→20:57)
[2018-05-12] MEDS ORDERED: DEXTROSE 5%-WATER - 50 ML IVPB ONE ×4 (03:13→20:57)
[2018-05-12] MEDS: PIPERACILLIN/TAZOB 2.25 GM 2.25 GM in DEXTROSE 5%-WATER - 50 ML IVPB SCH ×4 (03:25→22:21)
[2018-05-12] MEDS: ACETAMINOPHEN WITH CODEINE 300MG/30MG TABLET PO PRN ×3 (03:25→18:54)
[2018-05-12] MEDS: LEVOTHYROXINE NA 75 MCG TABLET (FP) PO SCH (06:00)
[2018-05-12] MEDS: INSULIN (LEVEMIR) 100 UNITS/ML UNITS SQ SCH ×2 (06:01→06:02)
[2018-05-12] MEDS: INSULIN SLIDING SCALE (NOVOLOG) 1 VIAL SQ SCH ×4 (06:01→22:23)
[2018-05-12 06:05] LABS: HBSAG SCREEN Negative (Negative); HEP B CORE AB, TOT Negative (Negative)
[2018-05-12] MEDS: SEVELAMER CARBONATE 800 MG TAB (FP) PO SCH ×3 (07:47→17:53)
[2018-05-12 07:57] LABS: INR 2.3 (0.83-1.09); PROTHROMBIN TIME (PATIENT) 27.4 SEC (9.7-13.0)
[2018-05-12 08:17] LABS: MAGNESIUM 1.5 mg/dL (1.8-2.4); PHOSPHOROUS 3.1 mg/dL (2.5-4.9)
[2018-05-12] MEDS ORDERED: PT OWN MED DRAWER 7, Y5N ONE (09:17)
[2018-05-12] MEDS: DOCUSATE SODIUM 100 MG CAPSULE (FP) PO SCH ×3 (09:21→22:30)
[2018-05-12] MEDS: HEPARIN NA (PORCINE) 5,000 UNITS/ML 1ML VIAL SQ SCH ×2 (09:21→22:22)
[2018-05-12] MEDS: NYSTATIN POWDER 100,000 UNITS/GM - 15 GM TOPICAL POWDER TP SCH ×2 (09:22→22:24)
[2018-05-12] MEDS: RAMIPRIL 5 MG CAPSULE (FP) PO SCH (09:22)
[2018-05-12] MEDS: DULoxetine HCL 20 MG CAPSULE.DR (FP) PO SCH (09:22)
[2018-05-12] MEDS: METOPROLOL TARTRATE 50 MG TABLET (FP) PO SCH ×2 (09:22→22:22)
[2018-05-12] MEDS: FUROSEMIDE 20 MG TABLET (FP) PO SCH (09:22)
[2018-05-12] MEDS: PANTOPRAZOLE 20 MG TABLET (FP) PO SCH (09:22)
[2018-05-12] MEDS ORDERED: SODIUM CHLORIDE 250 ML IV PRN (12:45)
--- NOTE | 2018-05-12 12:45 | PN ---
Progress Note, Physician History of Present Illness: Pt seen and examined at bedside. She is awake and alert. She denies shortness of breath. She only agrees to 3 hours of HD. - Current Medication List Current Medications: Active Medications Acetaminophen/Codeine Phosphate (Tylenol # 3 -) 1 tab PO Q6H PRN PRN Reason: PAIN LEVEL 4 - 6 Last Admin: 05/12/18 09:43 Dose: 1 tab Atorvastatin Calcium (Lipitor -) 10 mg PO HS [facility] Last Admin: 05/11/18 22:12 Dose: 10 mg Docusate Sodium (Colace -) 100 mg PO BID [facility] Last Admin: 05/12/18 09:21 Dose: 100 mg Duloxetine HCl (Cymbalta -) 20 mg PO DAILY [facility] Last Admin: 05/12/18 09:22 Dose: 20 mg Furosemide (Lasix -) 60 mg PO DAILY [facility] Last Admin: 05/12/18 09:22 Dose: 60 mg Heparin Sodium (Porcine) (Heparin -) 5,000 unit SQ BID [facility] Last Admin: 05/12/18 09:21 Dose: 5,000 unit Sodium Chloride (Normal Saline -) 250 mls @ 3,000 mls/hr IV PRN PRN PRN Reason: Hypotension during Dialysis Stop: 05/12/18 12:51 Piperacillin Sod/Tazobactam (Sod 2.25 gm/ Dextrose) 50 mls @ 100 mls/hr IVPB Q6H-IV [facility]; Protocol Last Admin: 05/12/18 09:21 Dose: 100 mls/hr Insulin Aspart (Novolog Vial Sliding Scale -) 1 vial SQ [facility]; Protocol Last Admin: 05/12/18 11:45 Dose: Not Given Insulin Detemir (Levemir Vial) 30 units SQ ACBK [facility] Last Admin: 05/12/18 06:02 Dose: Not Given Insulin Detemir (Levemir Vial) 30 units SQ ACBK [facility] Last Admin: 05/12/18 06:01 Dose: Not Given Levothyroxine Sodium (Synthroid -) 75 mcg PO ACBK [facility] Last Admin: 05/12/18 06:00 Dose: 75 mcg Metoprolol Tartrate (Lopressor -) 50 mg PO BID [facility] Last Admin: 05/12/18 09:22 Dose: 50 mg Non-Formulary Medication (Fluticasone/Salmeterol [Airduo Respiclick 113-14 Mcg] ) 1 each IH DAILY [facility] Nystatin (Nystop Powder -) 1 applic TP BID [facility] Last Admin: 05/12/18 09:22 Dose: 1 applic Pantoprazole Sodium (Protonix -) 20 mg PO DAILY [facility] Last Admin: 05/12/18 09:22 Dose: 20 mg Ramipril (Altace -) 5 mg PO DAILY [facility] Last Admin: 05/12/18 09:22 Dose: 5 mg Sevelamer Carbonate (Renvela -) 800 mg PO TIDCM [facility] Last Admin: 05/12/18 11:29 Dose: Not Given Warfarin Sodium (Coumadin -) 2.5 mg PO DAILY@1800 [facility] Last Admin: 05/11/18 17:48 Dose: 2.5 mg - Objective Vital Signs: Vital Signs Temperature 98.1 F 05/12/18 07:53 Pulse Rate 74 05/12/18 07:53 Respiratory Rate 19 05/12/18 07:53 Blood Pressure 101/55 L 05/12/18 07:53 O2 Sat by Pulse Oximetry (%) 98 05/11/18 21:00 Constitutional: Yes: Calm Eyes: Yes: Conjunctiva Clear HENT: Yes: Atraumatic Neck: Yes: Supple Cardiovascular: Yes: S1, S2 Respiratory: Yes: CTA Bilaterally Gastrointestinal: Yes: Soft, Abdomen, Obese Genitourinary: Yes: WNL Musculoskeletal: Yes: WNL Edema: Yes Edema: LLE: Trace, RLE: Trace Neurological: Yes: Oriented Psychiatric: Yes: Oriented Labs: CBC, BMP 05/11/18 07:26 05/11/18 07:26 INR, PTT INR 2.30 (0.83-1.09) H 05/12/18 06:40 Assessment/Plan Current Medications Generic Name Dose Route Start Last Admin Trade Name Freq PRN Reason Stop Dose Admin Acetaminophen/Codeine Phosphate 1 tab 05/10/18 22:19 05/12/18 09:43 Tylenol # 3 - PO 1 tab Q6H PRN Administration PAIN LEVEL 4 - 6 Atorvastatin Calcium 10 mg 05/10/18 22:00 05/11/18 22:12 Lipitor - PO 10 mg HS [facility] Administration Docusate Sodium 100 mg 05/10/18 22:00 05/12/18 09:21 Colace - PO 100 mg BID [facility] Administration Duloxetine HCl 20 mg 05/11/18 10:00 05/12/18 09:22 Cymbalta - PO 20 mg DAILY [facility] Administration Furosemide 60 mg 05/11/18 12:57 05/12/18 09:22 Lasix - PO 60 mg DAILY [facility] Administration Heparin Sodium (Porcine) 5,000 unit 05/10/18 22:00 05/12/18 09:21 Heparin - SQ 5,000 unit BID [facility] Administration Sodium Chloride 250 mls @ 3,000 mls/hr 05/11/18 12:51 Normal Saline - IV 05/12/18 12:51 PRN PRN Hypotension during Dialysis Piperacillin Sod/Tazobactam 50 mls @ 100 mls/hr 05/11/18 15:00 05/12/18 09:21 Sod 2.25 gm/ Dextrose IVPB 100 mls/hr Q6H-IV [facility] Administration Protocol Insulin Aspart 1 vial 05/10/18 22:00 05/12/18 11:45 Novolog Vial Sliding Scale - SQ Not Given ACHS [facility] Protocol Insulin Detemir 30 units 05/11/18 07:00 05/12/18 06:02 Levemir Vial SQ Not Given ACBK [facility] Insulin Detemir 30 units 05/11/18 07:00 05/12/18 06:01 Levemir Vial SQ Not Given ACBK [facility] Levothyroxine Sodium 75 mcg 05/11/18 07:00 05/12/18 06:00 Synthroid - PO 75 mcg ACBK [facility] Administration Metoprolol Tartrate 50 mg 05/10/18 22:00 05/12/18 09:22 Lopressor - PO 50 mg BID [facility] Administration Non-Formulary Medication 1 each 05/11/18 10:00 Fluticasone/Salmeterol [Airduo Respiclick 113-14 Mcg] IH DAILY [facility] Nystatin 1 applic 05/11/18 10:00 05/12/18 09:22 Nystop Powder - TP 1 applic BID [facility] Administration Pantoprazole Sodium 20 mg 05/11/18 10:00 05/12/18 09:22 Protonix - PO 20 mg DAILY [facility] Administration Ramipril 5 mg 05/11/18 10:00 05/12/18 09:22 Altace - PO 5 mg DAILY [facility] Administration Sevelamer Carbonate 800 mg 05/11/18 08:00 05/12/18 11:29 Renvela - PO Not Given TIDCM [facility] Warfarin Sodium 2.5 mg 05/11/18 18:00 05/11/18 17:48 Coumadin - PO 2.5 mg DAILY@1800 [facility] Administration Impression 1. ESRD 2. HTN 3. DM 4. foot ulcer 5. obesity 6. anemia Plan - will arrange for HD tomorrow - abx per ID - renal diet - lasix on non HD days - HD 3:30 permacath, 2 k bath - discussed with ID, they will address abx
--- NOTE | 2018-05-12 12:46 | PN ---
Progress Note, Physician History of Present Illness: patient stable no complaints - Current Medication List Current Medications: Active Medications Acetaminophen/Codeine Phosphate (Tylenol # 3 -) 1 tab PO Q6H PRN PRN Reason: PAIN LEVEL 4 - 6 Last Admin: 05/12/18 09:43 Dose: 1 tab Atorvastatin Calcium (Lipitor -) 10 mg PO HS [facility] Last Admin: 05/11/18 22:12 Dose: 10 mg Docusate Sodium (Colace -) 100 mg PO BID [facility] Last Admin: 05/12/18 09:21 Dose: 100 mg Duloxetine HCl (Cymbalta -) 20 mg PO DAILY [facility] Last Admin: 05/12/18 09:22 Dose: 20 mg Furosemide (Lasix -) 60 mg PO DAILY [facility] Last Admin: 05/12/18 09:22 Dose: 60 mg Heparin Sodium (Porcine) (Heparin -) 5,000 unit SQ BID [facility] Last Admin: 05/12/18 09:21 Dose: 5,000 unit Sodium Chloride (Normal Saline -) 250 mls @ 3,000 mls/hr IV PRN PRN PRN Reason: Hypotension during Dialysis Stop: 05/12/18 12:51 Piperacillin Sod/Tazobactam (Sod 2.25 gm/ Dextrose) 50 mls @ 100 mls/hr IVPB Q6H-IV [facility]; Protocol Last Admin: 05/12/18 09:21 Dose: 100 mls/hr Insulin Aspart (Novolog Vial Sliding Scale -) 1 vial SQ [facility]; Protocol Last Admin: 05/12/18 11:45 Dose: Not Given Insulin Detemir (Levemir Vial) 30 units SQ ACBK [facility] Last Admin: 05/12/18 06:02 Dose: Not Given Insulin Detemir (Levemir Vial) 30 units SQ ACBK [facility] Last Admin: 05/12/18 06:01 Dose: Not Given Levothyroxine Sodium (Synthroid -) 75 mcg PO ACBK [facility] Last Admin: 05/12/18 06:00 Dose: 75 mcg Metoprolol Tartrate (Lopressor -) 50 mg PO BID [facility] Last Admin: 05/12/18 09:22 Dose: 50 mg Non-Formulary Medication (Fluticasone/Salmeterol [Airduo Respiclick 113-14 Mcg] ) 1 each IH DAILY [facility] Nystatin (Nystop Powder -) 1 applic TP BID [facility] Last Admin: 05/12/18 09:22 Dose: 1 applic Pantoprazole Sodium (Protonix -) 20 mg PO DAILY [facility] Last Admin: 05/12/18 09:22 Dose: 20 mg Ramipril (Altace -) 5 mg PO DAILY [facility] Last Admin: 05/12/18 09:22 Dose: 5 mg Sevelamer Carbonate (Renvela -) 800 mg PO TIDCM [facility] Last Admin: 05/12/18 11:29 Dose: Not Given Warfarin Sodium (Coumadin -) 2.5 mg PO DAILY@1800 [facility] Last Admin: 05/11/18 17:48 Dose: 2.5 mg - Objective Vital Signs: Vital Signs Temperature 98.1 F 05/12/18 07:53 Pulse Rate 74 05/12/18 07:53 Respiratory Rate 19 05/12/18 07:53 Blood Pressure 101/55 L 05/12/18 07:53 O2 Sat by Pulse Oximetry (%) 98 05/11/18 21:00 Constitutional: Yes: No Distress, Calm Cardiovascular: Yes: Regular Rate and Rhythm Respiratory: Yes: Regular, CTA Bilaterally Gastrointestinal: Yes: Normal Bowel Sounds, Soft Musculoskeletal: Yes: WNL Extremities: Yes: Other Wound/Incision: Yes: Dressing Dry and Intact Neurological: Yes: Alert, Oriented Psychiatric: Yes: Alert, Oriented Labs: CBC, BMP 05/11/18 07:26 05/11/18 07:26 INR, PTT INR 2.30 (0.83-1.09) H 05/12/18 06:40 Assessment/Plan Problem List - Problems (1) Asthma Code(s): J45.909 - UNSPECIFIED ASTHMA, UNCOMPLICATED Qualifiers: Asthma severity: unspecified severity Asthma persistence: intermittent Asthma complication type: unspecified Qualified Code(s): J45.20 - Mild intermittent asthma, uncomplicated (2) Diabetes Code(s): E11.9 - TYPE 2 DIABETES MELLITUS WITHOUT COMPLICATIONS Qualifiers: Diabetes mellitus type: type 2 Diabetes mellitus skilled nursing insulin use: without historian dramatic arts use Diabetes mellitus complication status: with unspecified complications Qualified Code(s): E11.8 - Type 2 diabetes mellitus with unspecified complications (3) ESRD (end stage renal disease) Code(s): N18.6 - END STAGE RENAL DISEASE (4) GERD (gastroesophageal reflux disease) Code(s): K21.9 - GASTRO-ESOPHAGEAL REFLUX DISEASE WITHOUT ESOPHAGITIS Qualifiers: Esophagitis presence: esophagitis presence not specified Qualified Code(s) : K21.9 - Gastro-esophageal reflux disease without esophagitis (5) S/P CABG x 3 Code(s): Z95.1 - PRESENCE OF AORTOCORONARY BYPASS GRAFT (6) Wound of foot Code(s): S91.309A - UNSPECIFIED OPEN WOUND, UNSPECIFIED FOOT, INITIAL ENCOUNTER plan continue zosyn await for mri report wound care dialysis rest as per the team
--- NOTE | 2018-05-12 16:13 | PN ---
Progress Note, Physician History of Present Illness: doing well - Current Medication List Current Medications: Active Medications Acetaminophen/Codeine Phosphate (Tylenol # 3 -) 1 tab PO Q6H PRN PRN Reason: PAIN LEVEL 4 - 6 Last Admin: 05/12/18 09:43 Dose: 1 tab Atorvastatin Calcium (Lipitor -) 10 mg PO HS [facility] Last Admin: 05/11/18 22:12 Dose: 10 mg Docusate Sodium (Colace -) 100 mg PO BID ON [facility] Last Admin: 05/12/18 09:21 Dose: 100 mg Duloxetine HCl (Cymbalta -) 20 mg PO DAILY [facility] Last Admin: 05/12/18 09:22 Dose: 20 mg Epoetin Hang (Epogen -) 4,000 unit IVPUSH ONCE ONE Stop: 05/13/18 12:46 Furosemide (Lasix -) 60 mg PO DAILY [facility] Last Admin: 05/12/18 09:22 Dose: 60 mg Heparin Sodium (Porcine) (Heparin -) 5,000 unit SQ BID [facility] Last Admin: 05/12/18 09:21 Dose: 5,000 unit Heparin Sodium (Porcine) (Heparin -) 1,000 unit IVPUSH ONCE ONE Stop: 05/13/18 12:46 Piperacillin Sod/Tazobactam (Sod 2.25 gm/ Dextrose) 50 mls @ 100 mls/hr IVPB Q6H-IV [facility]; Protocol Last Admin: 05/12/18 15:25 Dose: 100 mls/hr Sodium Chloride (Normal Saline -) 250 mls @ 3,000 mls/hr IV PRN PRN PRN Reason: Hypotension during Dialysis Stop: 05/13/18 12:46 Insulin Aspart (Novolog Vial Sliding Scale -) 1 vial SQ [facility]; Protocol Last Admin: 05/12/18 11:45 Dose: Not Given Insulin Detemir (Levemir Vial) 30 units SQ ACBK [facility] Last Admin: 05/12/18 06:02 Dose: Not Given Insulin Detemir (Levemir Vial) 30 units SQ ACBK [facility] Last Admin: 05/12/18 06:01 Dose: Not Given Levothyroxine Sodium (Synthroid -) 75 mcg PO ACBK [facility] Last Admin: 05/12/18 06:00 Dose: 75 mcg Metoprolol Tartrate (Lopressor -) 50 mg PO BID ON [facility] Last Admin: 05/12/18 09:22 Dose: 50 mg Non-Formulary Medication (Fluticasone/Salmeterol [Airduo Respiclick 113-14 Mcg] ) 1 each IH DAILY [facility] Nystatin (Nystop Powder -) 1 applic TP BID ON [facility] Last Admin: 05/12/18 09:22 Dose: 1 applic Pantoprazole Sodium (Protonix -) 20 mg PO DAILY [facility] Last Admin: 05/12/18 09:22 Dose: 20 mg Ramipril (Altace -) 5 mg PO DAILY [facility] Last Admin: 05/12/18 09:22 Dose: 5 mg Sevelamer Carbonate (Renvela -) 800 mg PO TIDCM [facility] Last Admin: 05/12/18 11:29 Dose: Not Given Warfarin Sodium (Coumadin -) 2.5 mg PO DAILY@1800 [facility] Last Admin: 05/11/18 17:48 Dose: 2.5 mg - Objective Vital Signs: Vital Signs Temperature 98.3 F 05/12/18 14:44 Pulse Rate 69 05/12/18 14:44 Respiratory Rate 18 05/12/18 14:44 Blood Pressure 113/64 05/12/18 14:44 O2 Sat by Pulse Oximetry (%) 100 05/12/18 09:00 Constitutional: Yes: No Distress HENT: Yes: Atraumatic Neck: Yes: Supple Respiratory: Yes: CTA Bilaterally Gastrointestinal: Yes: Normal Bowel Sounds Extremities: Yes: Other (R heel wound) Edema: Yes Edema: RLE: Trace Neurological: Yes: Alert, Oriented Labs: CBC, BMP 05/11/18 07:26 05/11/18 07:26 INR, PTT INR 2.30 (0.83-1.09) H 05/12/18 06:40 Problem List - Problems (1) Asthma Assessment/Plan: on inhalers Code(s): J45.909 - UNSPECIFIED ASTHMA, UNCOMPLICATED Qualifiers: Asthma severity: unspecified severity Asthma persistence: intermittent Asthma complication type: unspecified Qualified Code(s): J45.20 - Mild intermittent asthma, uncomplicated (2) Diabetes Assessment/Plan: on meds Code(s): E11.9 - TYPE 2 DIABETES MELLITUS WITHOUT COMPLICATIONS Qualifiers: Diabetes mellitus type: type 2 Diabetes mellitus predatory animal exterminator insulin use: without retirement use Diabetes mellitus complication status: with unspecified complications Qualified Code(s): E11.8 - Type 2 diabetes mellitus with unspecified complications (3) ESRD (end stage renal disease) Assessment/Plan: on HD Code(s): N18.6 - END STAGE RENAL DISEASE (4) GERD (gastroesophageal reflux disease) Code(s): K21.9 - GASTRO-ESOPHAGEAL REFLUX DISEASE WITHOUT ESOPHAGITIS Qualifiers: Esophagitis presence: esophagitis presence not specified Qualified Code(s) : K21.9 - Gastro-esophageal reflux disease without esophagitis (5) S/P CABG x 3 Code(s): Z95.1 - PRESENCE OF AORTOCORONARY BYPASS GRAFT (6) Wound of foot Assessment/Plan: iv abx for 5 more weeks Code(s): S91.309A - UNSPECIFIED OPEN WOUND, UNSPECIFIED FOOT, INITIAL ENCOUNTER
--- NOTE | 2018-05-12 16:20 | CONSULT ---
- Consultation REQUESTING PROVIDER: CONSULT REQUEST: We have been asked to surgically evaluate this patient for Right heel wound PCP:Renée Kent HISTORY OF PRESENT ILLNESS: 67yo F h/o Rt heel ulcer states that has been present since July. Pt states that she has had most of her treatment at [facility], including seeing Joey Shaikh (vascular surgery). Pt states that she had a angiogram of her leg done a few months ago, but had no stents or ballooning done. Pt states that she is not ambulatory, due to the wound and is currently at [facility]. Pt states that she was sent to the hospital because there was concern that she had an infection in her heel wound. Pt denies fever, chills, n/v. PMHx: COPD, ESRD, CAD s/p CABG, DM PSHx: CABG, TKR, lap sussy Home Medications Medication Instructions Recorded Acetaminophen W/ Codeine #3 1 tab PO Q6H 05/10/18 [Tylenol # 3 -] Acetaminophen [Tylenol] 325 mg PO BID 05/10/18 Bisacodyl [Dulcolax -] 10 mg PO ONCE 05/10/18 Duloxetine HCl [Cymbalta] 20 mg PO DAILY 05/10/18 Fluticasone/Salmeterol [Airduo 1 each IH DAILY 05/10/18 Respiclick 113-14 Mcg] Furosemide 60 mg PO DAILY 05/10/18 Insulin Glargine,Hum.rec.anlog 30 unit SQ DAILY 05/10/18 [Basaglar Kwikpen U-100] Levothyroxine [Synthroid -] 75 mcg PO DAILY 05/10/18 Lorazepam [Ativan] 1 mg PO ASDIR 05/10/18 Magnesium Hydrox 2400MG/30Ml [Milk 30 ml PO ONCE 05/10/18 of Magnesia -] Metoprolol Tartrate 50 mg PO BID 05/10/18 Novolog - 05/10/18 Nystatin 100,000 unit PO BID 05/10/18 Omeprazole Magnesium [Prilosec Otc] 20 mg PO DAILY 05/10/18 Ramipril [Altace] 5 mg PO DAILY 05/10/18 Sevelamer HCl [Renagel] 800 mg PO TID 05/10/18 Silver Sulfadiazine 1% Top Cr 1 applic TP DAILY 05/10/18 [Silvadene -] Simvastatin 20 mg PO DAILY 05/10/18 Tiotropium Enterprise [Spiriva] 1 inh PO DAILY 05/10/18 Warfarin Na [Coumadin] 2.5 mg PO HS 05/10/18 Zinc Sulfate [Zinc-220] 220 mg PO DAILY 05/10/18 Allergies Allergy/AdvReac Type Severity Reaction Status Date / Time gabapentin Allergy Verified 05/10/18 15:59 PHYSICAL EXAM: GENERAL: Awake, alert, and fully oriented, in no acute distress. HEAD: Normal with no signs of trauma. EYES: PERRL, sclera anicteric, conjunctiva clear. NECK: Normal ROM, supple without lymphadenopathy, JVD, or masses. MUSCULOSKELETAL: Normal ROM at all joints. No bony deformities or tenderness. No CVA tenderness. LOWER EXTREMITIES: no palpable pulses, warm, well-perfused. No calf tenderness. 5cm x 5 cm ulcer on Rt heel, small areas of eschar, but otherwise clean. NEUROLOGICAL: Normal speech, gait not observed. PSYCH: Cooperative. Good eye contact. Appropriate mood and affect. SKIN: Warm, dry, normal turgor, no rashes or lesions noted. Vital Signs Temperature 98.3 F 05/12/18 14:44 Pulse Rate 69 05/12/18 14:44 Respiratory Rate 18 05/12/18 14:44 Blood Pressure 113/64 05/12/18 14:44 O2 Sat by Pulse Oximetry (%) 100 05/12/18 09:00 Lab Results WBC 13.1 K/mm3 (4.0-10.0) H 05/11/18 07:26 RBC 3.03 M/mm3 (3.60-5.2) L 05/11/18 07:26 Hgb 9.8 GM/dL (10.7-15.3) L 05/11/18 07:26 Hct 29.4 % (32.4-45.2) L 05/11/18 07:26 MCV 97.1 fl (80-96) H 05/11/18 07:26 MCHC 33.3 g/dl (32.0-36.0) 05/11/18 07:26 RDW 21.3 % (11.6-15.6) H 05/11/18 07:26 Plt Count 221 K/MM3 (134-434) 05/11/18 07:26 Sodium 134 mmol/L (136-145) L 05/11/18 07:26 Potassium 4.3 mmol/L (3.5-5.1) 05/11/18 07:26 Chloride 100 mmol/L (98-107) 05/11/18 07:26 Carbon Dioxide 25 mmol/L (21-32) 05/11/18 07:26 Anion Gap 9 MMOL/L (8-16) 05/11/18 07:26 BUN 52 mg/dL (7-18) H 05/11/18 07:26 Creatinine 4.5 mg/dL (0.55-1.3) H 05/11/18 07:26 Random Glucose 79 mg/dL (74-106) 05/11/18 07:26 Calcium 8.7 mg/dL (8.5-10.1) 05/11/18 07:26 Blood Type A POSITIVE 05/11/18 12:15 Antibody Screen Negative 05/10/18 15:10 INR 2.30 (0.83-1.09) H 05/12/18 06:40 Problem List - Problems (1) Wound of foot Assessment/Plan: Plan -pt states that she would like to have her vascular care done at [facility], will order CTA of the Lower extremities tomorrow morning before dialysis -recommend santyl and clean dressing to Rt heel -will follow up CTA Case discussed with Dr. Cutler, who agrees with plan Code(s): S91.309A - UNSPECIFIED OPEN WOUND, UNSPECIFIED FOOT, INITIAL ENCOUNTER
[2018-05-12] MEDS: WARFARIN NA 2.5 MG TABLET (FP) PO SCH (17:27)
[2018-05-12] MEDS: ATORVASTATIN CA 10 MG TABLET (FP) PO SCH (22:22)
[2018-05-13] MEDS ORDERED: PIPERACILLIN/TAZOBACTAM 2.25 GM VIAL IVPB ONE ×4 (03:12→21:09)
[2018-05-13] MEDS ORDERED: DEXTROSE 5%-WATER - 50 ML IVPB ONE ×4 (03:12→21:09)
[2018-05-13] MEDS: PIPERACILLIN/TAZOB 2.25 GM 2.25 GM in DEXTROSE 5%-WATER - 50 ML IVPB SCH ×5 (03:24→22:25)
[2018-05-13] MEDS: LEVOTHYROXINE NA 75 MCG TABLET (FP) PO SCH (06:19)
[2018-05-13] MEDS: INSULIN (LEVEMIR) 100 UNITS/ML UNITS SQ SCH ×2 (06:19→06:20)
[2018-05-13] MEDS: INSULIN SLIDING SCALE (NOVOLOG) 1 VIAL SQ SCH ×5 (06:21→22:19)
[2018-05-13] MEDS ORDERED: INSULIN (NOVOLOG) ASPART 100 UNITS/ML 10ML VIAL ONE ×2 (06:33→21:08)
[2018-05-13] MEDS: ACETAMINOPHEN WITH CODEINE 300MG/30MG TABLET PO PRN ×3 (07:40→22:18)
[2018-05-13] MEDS: SEVELAMER CARBONATE 800 MG TAB (FP) PO SCH ×3 (10:41→17:20)
[2018-05-13] MEDS ORDERED: EPOETIN ALFA 2,000 UNIT/1 ML VIAL IVPUSH ONE (12:00)
[2018-05-13] MEDS ORDERED: HEPARIN NA (PORCINE) 5,000 UNITS/ML 1ML VIAL IVPUSH ONE (12:45)
[2018-05-13 13:10] LABS: HEMATOCRIT 28.7 % (32.4-45.2); HEMOGLOBIN 9.1 GM/dL (10.7-15.3); MCH 31.1 pg (25.7-33.7); MCHC 31.6 g/dl (32.0-36.0); MEAN CELL VOLUME 98.6 fl (80-96); MEAN PLT VOLUME 8.8 fl (7.5-11.1); PLATELET COUNT 206 K/MM3 (134-434); RBC 2.91 M/mm3 (3.60-5.2); RDW 21.9 % (11.6-15.6); WHITE BLOOD COUNT 11.1 K/mm3 (4.0-10.0)
[2018-05-13 13:20] LABS: INR 2.17 (0.83-1.09); PROTHROMBIN TIME (PATIENT) 25.8 SEC (9.7-13.0)
[2018-05-13 13:39] LABS: ALBUMIN 2.5 g/dl (3.4-5.0); ALK PHOS 80 U/L (45-117); ANION GAP 9 MMOL/L (8-16); BILIRUBIN,TOTAL 0.4 mg/dL (0.2-1); BLOOD UREA NITROGEN 34 mg/dL (7-18); CALCIUM 8.7 mg/dL (8.5-10.1); CHLORIDE 98 mmol/L (98-107); CO2 27 mmol/L (21-32); CREATININE 3.8 mg/dL (0.55-1.3); GLUCOSE,RANDOM 164 mg/dL (74-106); POTASSIUM 4.1 mmol/L (3.5-5.1); SGOT/AST 15 U/L (15-37); SGPT/ALT 13 U/L (13-61); SODIUM 134 mmol/L (136-145); TOT PROT 5.4 g/dl (6.4-8.2)
--- NOTE | 2018-05-13 14:49 | PN ---
Progress Note, Physician History of Present Illness: patient stable no complaints - Current Medication List Current Medications: Active Medications Acetaminophen/Codeine Phosphate (Tylenol # 3 -) 1 tab PO Q6H PRN PRN Reason: PAIN LEVEL 4 - 6 Last Admin: 05/13/18 07:40 Dose: 1 tab Atorvastatin Calcium (Lipitor -) 10 mg PO HS [facility] Last Admin: 05/12/18 22:22 Dose: 10 mg Collagenase (Santyl -) 1 applic TP DAILY [facility]; Protocol Docusate Sodium (Colace -) 100 mg PO BID [facility] Last Admin: 05/12/18 22:30 Dose: Not Given Duloxetine HCl (Cymbalta -) 20 mg PO DAILY [facility] Last Admin: 05/12/18 09:22 Dose: 20 mg Furosemide (Lasix -) 60 mg PO DAILY [facility] Last Admin: 05/12/18 09:22 Dose: 60 mg Heparin Sodium (Porcine) (Heparin -) 5,000 unit SQ BID [facility] Last Admin: 05/12/18 22:22 Dose: 5,000 unit Piperacillin Sod/Tazobactam (Sod 2.25 gm/ Dextrose) 50 mls @ 100 mls/hr IVPB Q6H-IV [facility]; Protocol Last Admin: 05/13/18 03:24 Dose: 100 mls/hr Insulin Aspart (Novolog Vial Sliding Scale -) 1 vial SQ [facility]; Protocol Last Admin: 05/13/18 13:21 Dose: Not Given Insulin Detemir (Levemir Vial) 30 units SQ ACBK [facility] Last Admin: 05/13/18 06:20 Dose: Not Given Insulin Detemir (Levemir Vial) 30 units SQ ACBK [facility] Last Admin: 05/13/18 06:19 Dose: Not Given Levothyroxine Sodium (Synthroid -) 75 mcg PO ACBK [facility] Last Admin: 05/13/18 06:19 Dose: 75 mcg Metoprolol Tartrate (Lopressor -) 50 mg PO BID [facility] Last Admin: 05/12/18 22:22 Dose: 50 mg Non-Formulary Medication (Fluticasone/Salmeterol [Airduo Respiclick 113-14 Mcg] ) 1 each IH DAILY [facility] Nystatin (Nystop Powder -) 1 applic TP BID [facility] Last Admin: 05/12/18 22:24 Dose: 1 applic Pantoprazole Sodium (Protonix -) 20 mg PO DAILY [facility] Last Admin: 05/12/18 09:22 Dose: 20 mg Ramipril (Altace -) 5 mg PO DAILY [facility] Last Admin: 05/12/18 09:22 Dose: 5 mg Sevelamer Carbonate (Renvela -) 800 mg PO TIDCM [facility] Last Admin: 05/13/18 10:41 Dose: Not Given Warfarin Sodium (Coumadin -) 2.5 mg PO DAILY@1800 [facility] Last Admin: 05/12/18 17:27 Dose: 2.5 mg - Objective Vital Signs: Vital Signs Temperature 98.1 F 05/13/18 12:00 Pulse Rate 59 L 05/13/18 13:05 Respiratory Rate 18 05/13/18 13:05 Blood Pressure 136/63 05/13/18 13:05 O2 Sat by Pulse Oximetry (%) 98 05/12/18 20:41 Constitutional: Yes: No Distress, Calm Cardiovascular: Yes: Regular Rate and Rhythm Respiratory: Yes: Regular, CTA Bilaterally Gastrointestinal: Yes: Normal Bowel Sounds, Soft Musculoskeletal: Yes: WNL Extremities: Yes: Other Neurological: Yes: Alert, Oriented Psychiatric: Yes: Alert, Oriented Labs: CBC, BMP 05/13/18 12:20 05/13/18 12:20 INR, PTT INR 2.17 (0.83-1.09) H 05/13/18 12:20 Assessment/Plan Problem List - Problems (1) Asthma Code(s): J45.909 - UNSPECIFIED ASTHMA, UNCOMPLICATED Qualifiers: Asthma severity: unspecified severity Asthma persistence: intermittent Asthma complication type: unspecified Qualified Code(s): J45.20 - Mild intermittent asthma, uncomplicated (2) Diabetes Code(s): E11.9 - TYPE 2 DIABETES MELLITUS WITHOUT COMPLICATIONS Qualifiers: Diabetes mellitus type: type 2 Diabetes mellitus terminal press operator insulin use: without terminal press operator use Diabetes mellitus complication status: with unspecified complications Qualified Code(s): E11.8 - Type 2 diabetes mellitus with unspecified complications (3) ESRD (end stage renal disease) Code(s): N18.6 - END STAGE RENAL DISEASE (4) GERD (gastroesophageal reflux disease) Code(s): K21.9 - GASTRO-ESOPHAGEAL REFLUX DISEASE WITHOUT ESOPHAGITIS Qualifiers: Esophagitis presence: esophagitis presence not specified Qualified Code(s) : K21.9 - Gastro-esophageal reflux disease without esophagitis (5) S/P CABG x 3 Code(s): Z95.1 - PRESENCE OF AORTOCORONARY BYPASS GRAFT (6) Wound of foot Code(s): S91.309A - UNSPECIFIED OPEN WOUND, UNSPECIFIED FOOT, INITIAL ENCOUNTER 7 osteo of the foot plan continue zosyn mri result noted will continue current mgmt will need treatment for another 5 weeks with wound care
--- NOTE | 2018-05-13 15:21 | PN ---
Progress Note, Physician History of Present Illness: Pt seen and examined at bedside. She is awake and alert. She is tolerating HD. - Current Medication List Current Medications: Active Medications Acetaminophen/Codeine Phosphate (Tylenol # 3 -) 1 tab PO Q6H PRN PRN Reason: PAIN LEVEL 4 - 6 Last Admin: 05/13/18 07:40 Dose: 1 tab Atorvastatin Calcium (Lipitor -) 10 mg PO HS [facility] Last Admin: 05/12/18 22:22 Dose: 10 mg Collagenase (Santyl -) 1 applic TP DAILY [facility]; Protocol Docusate Sodium (Colace -) 100 mg PO BID [facility] Last Admin: 05/12/18 22:30 Dose: Not Given Duloxetine HCl (Cymbalta -) 20 mg PO DAILY [facility] Last Admin: 05/12/18 09:22 Dose: 20 mg Furosemide (Lasix -) 60 mg PO DAILY [facility] Last Admin: 05/12/18 09:22 Dose: 60 mg Heparin Sodium (Porcine) (Heparin -) 5,000 unit SQ BID [facility] Last Admin: 05/12/18 22:22 Dose: 5,000 unit Piperacillin Sod/Tazobactam (Sod 2.25 gm/ Dextrose) 50 mls @ 100 mls/hr IVPB Q6H-IV [facility]; Protocol Last Admin: 05/13/18 03:24 Dose: 100 mls/hr Insulin Aspart (Novolog Vial Sliding Scale -) 1 vial SQ [facility]; Protocol Last Admin: 05/13/18 13:21 Dose: Not Given Insulin Detemir (Levemir Vial) 30 units SQ ACBK [facility] Last Admin: 05/13/18 06:20 Dose: Not Given Insulin Detemir (Levemir Vial) 30 units SQ ACBK [facility] Last Admin: 05/13/18 06:19 Dose: Not Given Levothyroxine Sodium (Synthroid -) 75 mcg PO ACBK [facility] Last Admin: 05/13/18 06:19 Dose: 75 mcg Metoprolol Tartrate (Lopressor -) 50 mg PO BID [facility] Last Admin: 05/12/18 22:22 Dose: 50 mg Non-Formulary Medication (Fluticasone/Salmeterol [Airduo Respiclick 113-14 Mcg] ) 1 each IH DAILY [facility] Nystatin (Nystop Powder -) 1 applic TP BID [facility] Last Admin: 05/12/18 22:24 Dose: 1 applic Pantoprazole Sodium (Protonix -) 20 mg PO DAILY [facility] Last Admin: 05/12/18 09:22 Dose: 20 mg Ramipril (Altace -) 5 mg PO DAILY [facility] Last Admin: 05/12/18 09:22 Dose: 5 mg Sevelamer Carbonate (Renvela -) 800 mg PO TIDCM [facility] Last Admin: 05/13/18 10:41 Dose: Not Given Warfarin Sodium (Coumadin -) 2.5 mg PO DAILY@1800 [facility] Last Admin: 05/12/18 17:27 Dose: 2.5 mg - Objective Vital Signs: Vital Signs Temperature 98.1 F 05/13/18 12:00 Pulse Rate 59 L 05/13/18 13:05 Respiratory Rate 18 05/13/18 13:05 Blood Pressure 136/63 05/13/18 13:05 O2 Sat by Pulse Oximetry (%) 98 05/12/18 20:41 Constitutional: Yes: Calm Eyes: Yes: Conjunctiva Clear HENT: Yes: Atraumatic Cardiovascular: Yes: S1, S2 Respiratory: Yes: CTA Bilaterally Gastrointestinal: Yes: Soft, Abdomen, Obese Genitourinary: Yes: WNL Edema: Yes Edema: LLE: 1+, RLE: 1+ Neurological: Yes: Oriented Psychiatric: Yes: Oriented Labs: CBC, BMP 05/13/18 12:20 05/13/18 12:20 INR, PTT INR 2.17 (0.83-1.09) H 05/13/18 12:20 Assessment/Plan Current Medications Generic Name Dose Route Start Last Admin Trade Name Freq PRN Reason Stop Dose Admin Acetaminophen/Codeine Phosphate 1 tab 05/10/18 22:19 05/13/18 07:40 Tylenol # 3 - PO 1 tab Q6H PRN Administration PAIN LEVEL 4 - 6 Atorvastatin Calcium 10 mg 05/10/18 22:00 05/12/18 22:22 Lipitor - PO 10 mg HS [facility] Administration Collagenase 1 applic 05/13/18 10:00 Santyl - TP DAILY [facility] Protocol Docusate Sodium 100 mg 05/10/18 22:00 05/12/18 22:30 Colace - PO Not Given BID [facility] Duloxetine HCl 20 mg 05/11/18 10:00 05/12/18 09:22 Cymbalta - PO 20 mg DAILY [facility] Administration Furosemide 60 mg 05/11/18 12:57 05/12/18 09:22 Lasix - PO 60 mg DAILY [facility] Administration Heparin Sodium (Porcine) 5,000 unit 05/10/18 22:00 05/12/18 22:22 Heparin - SQ 5,000 unit BID [facility] Administration Piperacillin Sod/Tazobactam 50 mls @ 100 mls/hr 05/11/18 15:00 05/13/18 03:24 Sod 2.25 gm/ Dextrose IVPB 100 mls/hr Q6H-IV [facility] Administration Protocol Insulin Aspart 1 vial 05/10/18 22:00 05/13/18 13:21 Novolog Vial Sliding Scale - SQ Not Given ACHS [facility] Protocol Insulin Detemir 30 units 05/11/18 07:00 05/13/18 06:20 Levemir Vial SQ Not Given ACBK [facility] Insulin Detemir 30 units 05/11/18 07:00 05/13/18 06:19 Levemir Vial SQ Not Given ACBK [facility] Levothyroxine Sodium 75 mcg 05/11/18 07:00 05/13/18 06:19 Synthroid - PO 75 mcg ACBK [facility] Administration Metoprolol Tartrate 50 mg 05/10/18 22:00 05/12/18 22:22 Lopressor - PO 50 mg BID [facility] Administration Non-Formulary Medication 1 each 05/11/18 10:00 Fluticasone/Salmeterol [Airduo Respiclick 113-14 Mcg] IH DAILY [facility] Nystatin 1 applic 05/11/18 10:00 05/12/18 22:24 Nystop Powder - TP 1 applic BID [facility] Administration Pantoprazole Sodium 20 mg 05/11/18 10:00 05/12/18 09:22 Protonix - PO 20 mg DAILY [facility] Administration Ramipril 5 mg 05/11/18 10:00 05/12/18 09:22 Altace - PO 5 mg DAILY [facility] Administration Sevelamer Carbonate 800 mg 05/11/18 08:00 05/13/18 10:41 Renvela - PO Not Given TIDCM [facility] Warfarin Sodium 2.5 mg 05/11/18 18:00 05/12/18 17:27 Coumadin - PO 2.5 mg DAILY@1800 [facility] Administration Impression 1. ESRD 2. HTN 3. DM 4. foot ulcer 5. obesity 6. anemia Plan - HD today - follow cta results - renal diet - lasix on non HD days - HD 3:30 permacath, 2 k bath - discussed with ID, they will address abx
[2018-05-13] MEDS ORDERED: PT OWN MED DRAWER 7, Y5N ONE (16:35)
[2018-05-13] MEDS: RAMIPRIL 5 MG CAPSULE (FP) PO SCH (16:37)
[2018-05-13] MEDS: DULoxetine HCL 20 MG CAPSULE.DR (FP) PO SCH (16:37)
[2018-05-13] MEDS: FUROSEMIDE 20 MG TABLET (FP) PO SCH (16:38)
[2018-05-13] MEDS: HEPARIN NA (PORCINE) 5,000 UNITS/ML 1ML VIAL SQ SCH ×2 (16:39→22:25)
[2018-05-13] MEDS: DOCUSATE SODIUM 100 MG CAPSULE (FP) PO SCH ×2 (16:39→22:26)
[2018-05-13] MEDS: PANTOPRAZOLE 20 MG TABLET (FP) PO SCH (16:39)
[2018-05-13] MEDS: METOPROLOL TARTRATE 50 MG TABLET (FP) PO SCH ×2 (16:44→22:18)
[2018-05-13] MEDS: ONDANSETRON 4 MG/2 ML VIAL IVPB PRN (16:51)
--- NOTE | 2018-05-13 16:58 | PN ---
Progress Note, Physician History of Present Illness: doing well - Current Medication List Current Medications: Active Medications Acetaminophen/Codeine Phosphate (Tylenol # 3 -) 1 tab PO Q6H PRN PRN Reason: PAIN LEVEL 4 - 6 Last Admin: 05/13/18 15:41 Dose: 1 tab Atorvastatin Calcium (Lipitor -) 10 mg PO HS [facility] Last Admin: 05/12/18 22:22 Dose: 10 mg Collagenase (Santyl -) 1 applic TP DAILY [facility]; Protocol Docusate Sodium (Colace -) 100 mg PO BID [facility] Last Admin: 05/13/18 16:39 Dose: Not Given Duloxetine HCl (Cymbalta -) 20 mg PO DAILY [facility] Last Admin: 05/13/18 16:37 Dose: 20 mg Furosemide (Lasix -) 60 mg PO DAILY [facility] Last Admin: 05/13/18 16:38 Dose: 60 mg Heparin Sodium (Porcine) (Heparin -) 5,000 unit SQ BID [facility] Last Admin: 05/13/18 16:39 Dose: Not Given Piperacillin Sod/Tazobactam (Sod 2.25 gm/ Dextrose) 50 mls @ 100 mls/hr IVPB Q6H-IV [facility]; Protocol Last Admin: 05/13/18 16:40 Dose: 100 mls/hr Insulin Aspart (Novolog Vial Sliding Scale -) 1 vial SQ [facility]; Protocol Last Admin: 05/13/18 13:21 Dose: Not Given Insulin Detemir (Levemir Vial) 30 units SQ ACBK [facility] Last Admin: 05/13/18 06:20 Dose: Not Given Insulin Detemir (Levemir Vial) 30 units SQ ACBK [facility] Last Admin: 05/13/18 06:19 Dose: Not Given Levothyroxine Sodium (Synthroid -) 75 mcg PO ACBK [facility] Last Admin: 05/13/18 06:19 Dose: 75 mcg Metoprolol Tartrate (Lopressor -) 50 mg PO BID [facility] Last Admin: 05/13/18 16:44 Dose: Not Given Non-Formulary Medication (Fluticasone/Salmeterol [Airduo Respiclick 113-14 Mcg] ) 1 each IH DAILY [facility] Nystatin (Nystop Powder -) 1 applic TP BID [facility] Last Admin: 05/12/18 22:24 Dose: 1 applic Ondansetron HCl (Zofran Injection) 4 mg IVPB Q4H PRN PRN Reason: NAUSEA AND/OR VOMITING Last Admin: 05/13/18 16:51 Dose: 4 mg Pantoprazole Sodium (Protonix -) 20 mg PO DAILY [facility] Last Admin: 05/13/18 16:39 Dose: 20 mg Ramipril (Altace -) 5 mg PO DAILY [facility] Last Admin: 05/13/18 16:37 Dose: 5 mg Sevelamer Carbonate (Renvela -) 800 mg PO TIDCM [facility] Last Admin: 05/13/18 16:39 Dose: Not Given Warfarin Sodium (Coumadin -) 2.5 mg PO DAILY@1800 [facility] Last Admin: 05/12/18 17:27 Dose: 2.5 mg - Objective Vital Signs: Vital Signs Temperature 98.1 F 05/13/18 12:00 Pulse Rate 85 05/13/18 15:23 Respiratory Rate 18 05/13/18 15:23 Blood Pressure 137/58 L 05/13/18 15:23 O2 Sat by Pulse Oximetry (%) 98 05/12/18 20:41 Constitutional: Yes: No Distress HENT: Yes: Atraumatic Neck: Yes: Supple Cardiovascular: Yes: Regular Rate and Rhythm Respiratory: Yes: CTA Bilaterally Gastrointestinal: Yes: Normal Bowel Sounds Extremities: Yes: Other (R heel cellulitis) Neurological: Yes: Alert, Oriented Labs: CBC, BMP 05/13/18 12:20 05/13/18 12:20 INR, PTT INR 2.17 (0.83-1.09) H 05/13/18 12:20 Problem List - Problems (1) Asthma Assessment/Plan: on inhalers Code(s): J45.909 - UNSPECIFIED ASTHMA, UNCOMPLICATED Qualifiers: Asthma severity: unspecified severity Asthma persistence: intermittent Asthma complication type: unspecified Qualified Code(s): J45.20 - Mild intermittent asthma, uncomplicated (2) Diabetes Assessment/Plan: on meds Code(s): E11.9 - TYPE 2 DIABETES MELLITUS WITHOUT COMPLICATIONS Qualifiers: Diabetes mellitus type: type 2 Diabetes mellitus computer terminal operator insulin use: without usp use Diabetes mellitus complication status: with unspecified complications Qualified Code(s): E11.8 - Type 2 diabetes mellitus with unspecified complications (3) ESRD (end stage renal disease) Code(s): N18.6 - END STAGE RENAL DISEASE (4) GERD (gastroesophageal reflux disease) Code(s): K21.9 - GASTRO-ESOPHAGEAL REFLUX DISEASE WITHOUT ESOPHAGITIS Qualifiers: Esophagitis presence: esophagitis presence not specified Qualified Code(s) : K21.9 - Gastro-esophageal reflux disease without esophagitis (5) S/P CABG x 3 Code(s): Z95.1 - PRESENCE OF AORTOCORONARY BYPASS GRAFT (6) Wound of foot Assessment/Plan: iv abx for 5 more weeks Code(s): S91.309A - UNSPECIFIED OPEN WOUND, UNSPECIFIED FOOT, INITIAL ENCOUNTER
--- NOTE | 2018-05-13 17:01 | DS ---
Physical Examination Vital Signs: Vital Signs Temperature 98.1 F 05/13/18 12:00 Pulse Rate 85 05/13/18 15:23 Respiratory Rate 18 05/13/18 15:23 Blood Pressure 137/58 L 05/13/18 15:23 O2 Sat by Pulse Oximetry (%) 98 05/12/18 20:41 Labs: CBC, BMP 05/13/18 12:20 05/13/18 12:20 Discharge Summary Reason For Visit: WOUND OF FOOT,LOCAL INFECTION OF WOUND, END STAGE Current Active Problems Asthma (Acute) Diabetes (Acute) ESRD (end stage renal disease) (Acute) GERD (gastroesophageal reflux disease) (Acute) S/P CABG x 3 (Acute) Wound of foot (Acute) Condition: Fair - Instructions Referrals: Sandee Hernandes MD [Staff Physician] - Renée Kent MD [Staff Physician] - - Home Medications Comprehensive Discharge Medication List: Ambulatory Orders Acetaminophen W/ Codeine #3 [Tylenol # 3 -] 1 tab PO Q6H 05/10/18 Acetaminophen [Tylenol] 325 mg PO BID 05/10/18 Bisacodyl [Dulcolax -] 10 mg PO ONCE 05/10/18 Duloxetine HCl [Cymbalta] 20 mg PO DAILY 05/10/18 Fluticasone/Salmeterol [Airduo Respiclick 113-14 Mcg] 1 each IH DAILY 05/10/18 Furosemide 60 mg PO DAILY 05/10/18 Insulin Glargine,Hum.rec.anlog [Basaglar Kwikpen U-100] 30 unit SQ DAILY Levothyroxine [Synthroid -] 75 mcg PO DAILY 05/10/18 Lorazepam [Ativan] 1 mg PO ASDIR 05/10/18 Magnesium Hydrox 2400MG/30Ml [Milk of Magnesia -] 30 ml PO ONCE 05/10/18 Metoprolol Tartrate 50 mg PO BID 05/10/18 Novolog - 05/10/18 Nystatin 100,000 unit PO BID 05/10/18 Omeprazole Magnesium [Prilosec Otc] 20 mg PO DAILY 05/10/18 Ramipril [Altace] 5 mg PO DAILY 05/10/18 Sevelamer HCl [Renagel] 800 mg PO TID 05/10/18 Silver Sulfadiazine 1% Top Cr [Silvadene -] 1 applic TP DAILY 05/10/18 Simvastatin 20 mg PO DAILY 05/10/18 Tiotropium [place] [Spiriva] 1 inh PO DAILY 05/10/18 Warfarin Na [Coumadin] 2.5 mg PO HS 05/10/18 Zinc Sulfate [Zinc-220] 220 mg PO DAILY 05/10/18 Piperacillin/Tazob 2.25 gm [Zosyn -] 2.25 gm IVPB Q6H-IV vial 05/13/18 dc
[2018-05-13] MEDS: NYSTATIN POWDER 100,000 UNITS/GM - 15 GM TOPICAL POWDER TP SCH ×2 (17:19→22:19)
[2018-05-13] MEDS: WARFARIN NA 2.5 MG TABLET (FP) PO SCH (18:01)
[2018-05-13] MEDS: COLLAGENASE CLOSTRIDIUM HIST. 30 GRAMS TUBE TP SCH (18:22)
[2018-05-13] MEDS: ATORVASTATIN CA 10 MG TABLET (FP) PO SCH (22:18)
[2018-05-14] MEDS ORDERED: PIPERACILLIN/TAZOBACTAM 2.25 GM VIAL IVPB ONE ×4 (03:43→21:13)
[2018-05-14] MEDS ORDERED: DEXTROSE 5%-WATER - 50 ML IVPB ONE ×4 (03:43→21:13)
[2018-05-14] MEDS: PIPERACILLIN/TAZOB 2.25 GM 2.25 GM in DEXTROSE 5%-WATER - 50 ML IVPB SCH ×4 (03:58→22:20)
[2018-05-14] MEDS ORDERED: ACETAMINOPHEN WITH CODEINE 300MG/30MG TABLET PO ONE (06:34)
[2018-05-14] MEDS: INSULIN SLIDING SCALE (NOVOLOG) 1 VIAL SQ SCH ×4 (06:44→22:21)
[2018-05-14] MEDS: INSULIN (LEVEMIR) 100 UNITS/ML UNITS SQ SCH (06:45)
[2018-05-14] MEDS: LEVOTHYROXINE NA 75 MCG TABLET (FP) PO SCH (06:46)
[2018-05-14] MEDS ORDERED: INSULIN (NOVOLOG) ASPART 100 UNITS/ML 10ML VIAL ONE (06:53)
[2018-05-14 07:27] LABS: INR 2.32 (0.83-1.09); PROTHROMBIN TIME (PATIENT) 27.6 SEC (9.7-13.0)
[2018-05-14] MEDS: FUROSEMIDE 20 MG TABLET (FP) PO SCH (10:01)
[2018-05-14] MEDS: PANTOPRAZOLE 20 MG TABLET (FP) PO SCH (10:01)
[2018-05-14] MEDS: SEVELAMER CARBONATE 800 MG TAB (FP) PO SCH ×3 (10:01→18:20)
[2018-05-14] MEDS: DOCUSATE SODIUM 100 MG CAPSULE (FP) PO SCH ×2 (10:01→22:20)
[2018-05-14] MEDS: METOPROLOL TARTRATE 50 MG TABLET (FP) PO SCH ×2 (10:01→22:20)
[2018-05-14] MEDS: RAMIPRIL 5 MG CAPSULE (FP) PO SCH (10:02)
[2018-05-14] MEDS: HEPARIN NA (PORCINE) 5,000 UNITS/ML 1ML VIAL SQ SCH ×2 (10:02→22:20)
[2018-05-14] MEDS: DULoxetine HCL 20 MG CAPSULE.DR (FP) PO SCH (10:02)
[2018-05-14] MEDS: NYSTATIN POWDER 100,000 UNITS/GM - 15 GM TOPICAL POWDER TP SCH ×2 (10:12→22:21)
--- NOTE | 2018-05-14 11:36 | PN ---
Progress Note, Physician - Current Medication List Current Medications: Active Medications Atorvastatin Calcium (Lipitor -) 10 mg PO HS [facility] Last Admin: 05/13/18 22:18 Dose: 10 mg Collagenase (Santyl -) 1 applic TP DAILY [facility]; Protocol Last Admin: 05/13/18 18:22 Dose: 1 applic Docusate Sodium (Colace -) 100 mg PO BID [facility] Last Admin: 05/14/18 10:01 Dose: Not Given Duloxetine HCl (Cymbalta -) 20 mg PO DAILY [facility] Last Admin: 05/14/18 10:02 Dose: 20 mg Furosemide (Lasix -) 60 mg PO DAILY [facility] Last Admin: 05/14/18 10:01 Dose: 60 mg Heparin Sodium (Porcine) (Heparin -) 5,000 unit SQ BID [facility] Last Admin: 05/14/18 10:02 Dose: Not Given Piperacillin Sod/Tazobactam (Sod 2.25 gm/ Dextrose) 50 mls @ 100 mls/hr IVPB Q6H-IV [facility]; Protocol Last Admin: 05/14/18 10:00 Dose: 100 mls/hr Insulin Aspart (Novolog Vial Sliding Scale -) 1 vial SQ [facility]; Protocol Last Admin: 05/14/18 06:44 Dose: 2 unit Insulin Detemir (Levemir Vial) 30 units SQ [facility] Last Admin: 05/14/18 06:45 Dose: 30 units Levothyroxine Sodium (Synthroid -) 75 mcg PO ACBK [facility] Last Admin: 05/14/18 06:46 Dose: 75 mcg Metoprolol Tartrate (Lopressor -) 50 mg PO BID [facility] Last Admin: 05/14/18 10:01 Dose: 50 mg Non-Formulary Medication (Fluticasone/Salmeterol [Airduo Respiclick 113-14 Mcg] ) 1 each IH DAILY [facility] Nystatin (Nystop Powder -) 1 applic TP BID [facility] Last Admin: 05/14/18 10:12 Dose: 1 applic Ondansetron HCl (Zofran Injection) 4 mg IVPB Q4H PRN PRN Reason: NAUSEA AND/OR VOMITING Last Admin: 05/13/18 16:51 Dose: 4 mg Pantoprazole Sodium (Protonix -) 20 mg PO DAILY [facility] Last Admin: 05/14/18 10:01 Dose: 20 mg Ramipril (Altace -) 5 mg PO DAILY [facility] Last Admin: 05/14/18 10:02 Dose: 5 mg Sevelamer Carbonate (Renvela -) 800 mg PO TIDCM [facility] Last Admin: 05/14/18 10:01 Dose: Not Given Warfarin Sodium (Coumadin -) 2.5 mg PO DAILY@1800 [facility] Last Admin: 05/13/18 18:01 Dose: 2.5 mg - Objective Vital Signs: Vital Signs Temperature 98.3 F 05/14/18 10:00 Pulse Rate 64 05/14/18 10:00 Respiratory Rate 18 05/14/18 10:00 Blood Pressure 110/60 05/14/18 10:00 O2 Sat by Pulse Oximetry (%) 96 05/13/18 21:00 Labs: CBC, BMP 05/13/18 12:20 05/13/18 12:20 INR, PTT INR 2.32 (0.83-1.09) H 05/14/18 06:30
[2018-05-14] MEDS: COLLAGENASE CLOSTRIDIUM HIST. 30 GRAMS TUBE TP SCH (15:12)
[2018-05-14] MEDS ORDERED: SODIUM CHLORIDE 250 ML IV PRN (15:31)
--- NOTE | 2018-05-14 15:31 | PN ---
Progress Note, Physician History of Present Illness: Pt seen and examined at bedside. She denies shortness of breath. - Current Medication List Current Medications: Active Medications Atorvastatin Calcium (Lipitor -) 10 mg PO HS [facility] Last Admin: 05/13/18 22:18 Dose: 10 mg Collagenase (Santyl -) 1 applic TP DAILY [facility]; Protocol Last Admin: 05/14/18 15:12 Dose: 1 applic Docusate Sodium (Colace -) 100 mg PO BID [facility] Last Admin: 05/14/18 10:01 Dose: Not Given Duloxetine HCl (Cymbalta -) 20 mg PO DAILY [facility] Last Admin: 05/14/18 10:02 Dose: 20 mg Furosemide (Lasix -) 60 mg PO DAILY [facility] Last Admin: 05/14/18 10:01 Dose: 60 mg Heparin Sodium (Porcine) (Heparin -) 5,000 unit SQ BID [facility] Last Admin: 05/14/18 10:02 Dose: Not Given Piperacillin Sod/Tazobactam (Sod 2.25 gm/ Dextrose) 50 mls @ 100 mls/hr IVPB Q6H-IV [facility]; Protocol Last Admin: 05/14/18 15:12 Dose: 100 mls/hr Insulin Aspart (Novolog Vial Sliding Scale -) 1 vial SQ [facility]; Protocol Last Admin: 05/14/18 13:54 Dose: Not Given Insulin Detemir (Levemir Vial) 30 units SQ [facility] Last Admin: 05/14/18 06:45 Dose: 30 units Levothyroxine Sodium (Synthroid -) 75 mcg PO ACBK [facility] Last Admin: 05/14/18 06:46 Dose: 75 mcg Metoprolol Tartrate (Lopressor -) 50 mg PO BID [facility] Last Admin: 05/14/18 10:01 Dose: 50 mg Non-Formulary Medication (Fluticasone/Salmeterol [Airduo Respiclick 113-14 Mcg] ) 1 each IH DAILY [facility] Nystatin (Nystop Powder -) 1 applic TP BID [facility] Last Admin: 05/14/18 10:12 Dose: 1 applic Ondansetron HCl (Zofran Injection) 4 mg IVPB Q4H PRN PRN Reason: NAUSEA AND/OR VOMITING Last Admin: 05/13/18 16:51 Dose: 4 mg Pantoprazole Sodium (Protonix -) 20 mg PO DAILY [facility] Last Admin: 05/14/18 10:01 Dose: 20 mg Ramipril (Altace -) 5 mg PO DAILY [facility] Last Admin: 05/14/18 10:02 Dose: 5 mg Sevelamer Carbonate (Renvela -) 800 mg PO TIDCM [facility] Last Admin: 05/14/18 13:54 Dose: Not Given Warfarin Sodium (Coumadin -) 2.5 mg PO DAILY@1800 [facility] Last Admin: 05/13/18 18:01 Dose: 2.5 mg - Objective Vital Signs: Vital Signs Temperature 98.1 F 05/14/18 15:07 Pulse Rate 70 05/14/18 15:07 Respiratory Rate 20 05/14/18 15:07 Blood Pressure 148/63 05/14/18 15:07 O2 Sat by Pulse Oximetry (%) 99 05/14/18 09:00 Constitutional: Yes: Calm Eyes: Yes: Conjunctiva Clear HENT: Yes: Atraumatic Cardiovascular: Yes: S1, S2 Respiratory: Yes: CTA Bilaterally Gastrointestinal: Yes: Soft Genitourinary: Yes: WNL Edema: Yes Edema: LLE: 1+, RLE: 1+ Neurological: Yes: Oriented Psychiatric: Yes: Oriented Labs: CBC, BMP 05/13/18 12:20 05/13/18 12:20 INR, PTT INR 2.32 (0.83-1.09) H 05/14/18 06:30 Problem List - Problems (1) Diabetes Code(s): E11.9 - TYPE 2 DIABETES MELLITUS WITHOUT COMPLICATIONS Qualifiers: Diabetes mellitus type: type 2 Diabetes mellitus terminal superintendent insulin use: without terminal superintendent use Diabetes mellitus complication status: with unspecified complications Qualified Code(s): E11.8 - Type 2 diabetes mellitus with unspecified complications (2) ESRD (end stage renal disease) Code(s): N18.6 - END STAGE RENAL DISEASE Assessment/Plan Current Medications Generic Name Dose Route Start Last Admin Trade Name Freq PRN Reason Stop Dose Admin Atorvastatin Calcium 10 mg 05/10/18 22:00 05/13/18 22:18 Lipitor - PO 10 mg HS [facility] Administration Collagenase 1 applic 05/13/18 10:00 05/14/18 15:12 Santyl - TP 1 applic DAILY [facility] Administration Protocol Docusate Sodium 100 mg 05/10/18 22:00 05/14/18 10:01 Colace - PO Not Given BID [facility] Duloxetine HCl 20 mg 05/11/18 10:00 05/14/18 10:02 Cymbalta - PO 20 mg DAILY [facility] Administration Furosemide 60 mg 05/11/18 12:57 05/14/18 10:01 Lasix - PO 60 mg DAILY [facility] Administration Heparin Sodium (Porcine) 5,000 unit 05/10/18 22:00 05/14/18 10:02 Heparin - SQ Not Given BID [facility] Piperacillin Sod/Tazobactam 50 mls @ 100 mls/hr 05/11/18 15:00 05/14/18 15:12 Sod 2.25 gm/ Dextrose IVPB 100 mls/hr Q6H-IV [facility] Administration Protocol Insulin Aspart 1 vial 05/10/18 22:00 05/14/18 13:54 Novolog Vial Sliding Scale - SQ Not Given ACHS [facility] Protocol Insulin Detemir 30 units 05/11/18 07:00 05/14/18 06:45 Levemir Vial SQ 30 units ACBK [facility] Administration Levothyroxine Sodium 75 mcg 05/11/18 07:00 05/14/18 06:46 Synthroid - PO 75 mcg ACBK [facility] Administration Metoprolol Tartrate 50 mg 05/10/18 22:00 05/14/18 10:01 Lopressor - PO 50 mg BID [facility] Administration Non-Formulary Medication 1 each 05/11/18 10:00 Fluticasone/Salmeterol [Airduo Respiclick 113-14 Mcg] IH DAILY [facility] Nystatin 1 applic 05/11/18 10:00 05/14/18 10:12 Nystop Powder - TP 1 applic BID [facility] Administration Ondansetron HCl 4 mg 05/13/18 16:31 05/13/18 16:51 Zofran Injection IVPB 4 mg Q4H PRN Administration NAUSEA AND/OR VOMITING Pantoprazole Sodium 20 mg 05/11/18 10:00 05/14/18 10:01 Protonix - PO 20 mg DAILY [facility] Administration Ramipril 5 mg 05/11/18 10:00 05/14/18 10:02 Altace - PO 5 mg DAILY [facility] Administration Sevelamer Carbonate 800 mg 05/11/18 08:00 05/14/18 13:54 Renvela - PO Not Given TIDCM [facility] Warfarin Sodium 2.5 mg 05/11/18 18:00 05/13/18 18:01 Coumadin - PO 2.5 mg DAILY@1800 [facility] Administration Impression 1. ESRD 2. HTN 3. DM 4. foot ulcer 5. obesity 6. anemia Plan - next HD tomorrow - abx per ID - renal diet - lasix on non HD days - HD 3:30 permacath, 2 k bath - po lasix on non hd days
[2018-05-14] MEDS: ACETAMINOPHEN WITH CODEINE 300MG/30MG TABLET PO PRN (18:24)
[2018-05-14] MEDS: WARFARIN NA 2.5 MG TABLET (FP) PO SCH (18:24)
--- NOTE | 2018-05-14 19:23 | PN ---
Progress Note, Physician History of Present Illness: doing well - Current Medication List Current Medications: Active Medications Acetaminophen/Codeine Phosphate (Tylenol # 3 -) 1 tab PO Q6H PRN PRN Reason: PAIN LEVEL 1-5 Last Admin: 05/14/18 18:24 Dose: 1 tab Atorvastatin Calcium (Lipitor -) 10 mg PO HS [facility] Last Admin: 05/13/18 22:18 Dose: 10 mg Collagenase (Santyl -) 1 applic TP DAILY [facility]; Protocol Last Admin: 05/14/18 15:12 Dose: 1 applic Docusate Sodium (Colace -) 100 mg PO BID [facility] Last Admin: 05/14/18 10:01 Dose: Not Given Duloxetine HCl (Cymbalta -) 20 mg PO DAILY [facility] Last Admin: 05/14/18 10:02 Dose: 20 mg Epoetin Hang (Procrit -) 6,000 unit IVPUSH ONCE ONE Stop: 05/15/18 15:32 Furosemide (Lasix -) 60 mg PO DAILY [facility] Last Admin: 05/14/18 10:01 Dose: 60 mg Heparin Sodium (Porcine) (Heparin -) 5,000 unit SQ BID [facility] Last Admin: 05/14/18 10:02 Dose: Not Given Heparin Sodium (Porcine) (Heparin -) 1,000 unit IVPUSH ONCE ONE Stop: 05/15/18 15:32 Piperacillin Sod/Tazobactam (Sod 2.25 gm/ Dextrose) 50 mls @ 100 mls/hr IVPB Q6H-IV [facility]; Protocol Last Admin: 05/14/18 15:12 Dose: 100 mls/hr Sodium Chloride (Normal Saline -) 250 mls @ 3,000 mls/hr IV PRN PRN PRN Reason: Hypotension during Dialysis Stop: 05/15/18 15:31 Insulin Aspart (Novolog Vial Sliding Scale -) 1 vial SQ [facility]; Protocol Last Admin: 05/14/18 18:20 Dose: Not Given Insulin Detemir (Levemir Vial) 30 units SQ ACBK [facility] Last Admin: 05/14/18 06:45 Dose: 30 units Levothyroxine Sodium (Synthroid -) 75 mcg PO ACBK [facility] Last Admin: 05/14/18 06:46 Dose: 75 mcg Metoprolol Tartrate (Lopressor -) 50 mg PO BID [facility] Last Admin: 05/14/18 10:01 Dose: 50 mg Non-Formulary Medication (Fluticasone/Salmeterol [Airduo Respiclick 113-14 Mcg] ) 1 each IH DAILY [facility] Nystatin (Nystop Powder -) 1 applic TP BID [facility] Last Admin: 05/14/18 10:12 Dose: 1 applic Ondansetron HCl (Zofran Injection) 4 mg IVPB Q4H PRN PRN Reason: NAUSEA AND/OR VOMITING Last Admin: 05/13/18 16:51 Dose: 4 mg Pantoprazole Sodium (Protonix -) 20 mg PO DAILY [facility] Last Admin: 05/14/18 10:01 Dose: 20 mg Ramipril (Altace -) 5 mg PO DAILY [facility] Last Admin: 05/14/18 10:02 Dose: 5 mg Sevelamer Carbonate (Renvela -) 800 mg PO TIDCM [facility] Last Admin: 05/14/18 18:20 Dose: Not Given Warfarin Sodium (Coumadin -) 2.5 mg PO DAILY@1800 [facility] Last Admin: 05/14/18 18:24 Dose: 2.5 mg - Objective Vital Signs: Vital Signs Temperature 97.9 F 05/14/18 18:00 Pulse Rate 75 05/14/18 18:00 Respiratory Rate 20 05/14/18 18:00 Blood Pressure 116/44 L 05/14/18 18:00 O2 Sat by Pulse Oximetry (%) 99 05/14/18 09:00 Constitutional: Yes: No Distress HENT: Yes: Atraumatic Neck: Yes: Supple Cardiovascular: Yes: Regular Rate and Rhythm Respiratory: Yes: CTA Bilaterally Gastrointestinal: Yes: Normal Bowel Sounds Extremities: Yes: Other (R heel wound) Edema: Yes Edema: RLE: Trace (foot) Neurological: Yes: Alert, Oriented Labs: CBC, BMP 05/13/18 12:20 05/13/18 12:20 INR, PTT INR 2.32 (0.83-1.09) H 05/14/18 06:30 Problem List - Problems (1) Asthma Assessment/Plan: on inhalers Code(s): J45.909 - UNSPECIFIED ASTHMA, UNCOMPLICATED Qualifiers: Asthma severity: unspecified severity Asthma persistence: intermittent Asthma complication type: unspecified Qualified Code(s): J45.20 - Mild intermittent asthma, uncomplicated (2) Diabetes Assessment/Plan: on meds Code(s): E11.9 - TYPE 2 DIABETES MELLITUS WITHOUT COMPLICATIONS Qualifiers: Diabetes mellitus type: type 2 Diabetes mellitus air conditioning specialist insulin use: without usp use Diabetes mellitus complication status: with unspecified complications Qualified Code(s): E11.8 - Type 2 diabetes mellitus with unspecified complications (3) ESRD (end stage renal disease) Assessment/Plan: on HD Code(s): N18.6 - END STAGE RENAL DISEASE (4) GERD (gastroesophageal reflux disease) Code(s): K21.9 - GASTRO-ESOPHAGEAL REFLUX DISEASE WITHOUT ESOPHAGITIS Qualifiers: Esophagitis presence: esophagitis presence not specified Qualified Code(s) : K21.9 - Gastro-esophageal reflux disease without esophagitis (5) S/P CABG x 3 Code(s): Z95.1 - PRESENCE OF AORTOCORONARY BYPASS GRAFT (6) Wound of foot Assessment/Plan: iv abx for 5 more weeks Code(s): S91.309A - UNSPECIFIED OPEN WOUND, UNSPECIFIED FOOT, INITIAL ENCOUNTER
[2018-05-14] MEDS: ATORVASTATIN CA 10 MG TABLET (FP) PO SCH (22:20)
[2018-05-15] MEDS: ACETAMINOPHEN WITH CODEINE 300MG/30MG TABLET PO PRN ×4 (00:46→18:55)
[2018-05-15] MEDS ORDERED: MICONAZOLE NITRATE 28 GM TUBE TP SCH (01:48)
[2018-05-15] MEDS ORDERED: MICONAZOLE NITRATE 2% VAGINAL CREAM 45 GM TUBE PV SCH (02:15)
[2018-05-15] MEDS: MICONAZOLE NITRATE 2% VAGINAL CREAM 45 GM TUBE PV SCH ×3 (03:00→22:51)
[2018-05-15] MEDS ORDERED: PIPERACILLIN/TAZOBACTAM 2.25 GM VIAL IVPB ONE ×4 (03:17→20:56)
[2018-05-15] MEDS ORDERED: DEXTROSE 5%-WATER - 50 ML IVPB ONE ×4 (03:17→20:56)
[2018-05-15] MEDS: PIPERACILLIN/TAZOB 2.25 GM 2.25 GM in DEXTROSE 5%-WATER - 50 ML IVPB SCH ×4 (03:45→23:09)
[2018-05-15] MEDS: LEVOTHYROXINE NA 75 MCG TABLET (FP) PO SCH (06:21)
[2018-05-15] MEDS: INSULIN SLIDING SCALE (NOVOLOG) 1 VIAL SQ SCH ×4 (06:52→22:50)
[2018-05-15] MEDS: INSULIN (LEVEMIR) 100 UNITS/ML UNITS SQ SCH (06:52)
[2018-05-15 07:30] LABS: INR 2.24 (0.83-1.09); PROTHROMBIN TIME (PATIENT) 26.6 SEC (9.7-13.0)
--- NOTE | 2018-05-15 08:07 | PN ---
Progress Note (short form) - Note Progress Note: RENAL Pt known to me from [facility] She appears well awaiting hd Last Vital Signs Temp Pulse Resp BP Pulse Ox 97.8 F 76 20 119/58 L 99 05/15/18 05:39 05/15/18 05:39 05/15/18 05:39 05/15/18 05:39 05/14/18 21:00 lungs bilat crackles cvs s1s2 rr abd soft ext +edema, right foot dressed neuro a+ox3 CBC, BMP 05/13/18 12:20 05/13/18 12:20 Current Medications Generic Name Dose Route Start Last Admin Trade Name Freq PRN Reason Stop Dose Admin Acetaminophen/Codeine Phosphate 1 tab 05/14/18 18:02 05/15/18 06:21 Tylenol # 3 - PO 1 tab Q6H PRN Administration PAIN LEVEL 1-5 Atorvastatin Calcium 10 mg 05/10/18 22:00 05/14/18 22:20 Lipitor - PO 10 mg HS [facility] Administration Collagenase 1 applic 05/13/18 10:00 05/14/18 15:12 Santyl - TP 1 applic DAILY [facility] Administration Protocol Docusate Sodium 100 mg 05/10/18 22:00 05/14/18 22:20 Colace - PO Not Given BID [facility] Duloxetine HCl 20 mg 05/11/18 10:00 05/14/18 10:02 Cymbalta - PO 20 mg DAILY [facility] Administration Epoetin Hang 6,000 unit 05/15/18 15:31 Procrit - IVPUSH 05/15/18 15:32 ONCE ONE Furosemide 60 mg 05/11/18 12:57 05/14/18 10:01 Lasix - PO 60 mg DAILY [facility] Administration Heparin Sodium (Porcine) 5,000 unit 05/10/18 22:00 05/14/18 22:20 Heparin - SQ Not Given BID [facility] Heparin Sodium (Porcine) 1,000 unit 05/15/18 15:31 Heparin - IVPUSH 05/15/18 15:32 ONCE ONE Piperacillin Sod/Tazobactam 50 mls @ 100 mls/hr 05/11/18 15:00 05/15/18 03:45 Sod 2.25 gm/ Dextrose IVPB 100 mls/hr Q6H-IV [facility] Administration Protocol Sodium Chloride 250 mls @ 3,000 mls/hr 05/14/18 15:31 Normal Saline - IV 05/15/18 15:31 PRN PRN Hypotension during Dialysis Insulin Aspart 1 vial 05/10/18 22:00 05/15/18 06:52 Novolog Vial Sliding Scale - SQ Not Given ACHS [facility] Protocol Insulin Detemir 30 units 05/11/18 07:00 05/15/18 06:52 Levemir Vial SQ Not Given ACBK [facility] Levothyroxine Sodium 75 mcg 05/11/18 07:00 05/15/18 06:21 Synthroid - PO 75 mcg ACBK [facility] Administration Metoprolol Tartrate 50 mg 05/10/18 22:00 05/14/18 22:20 Lopressor - PO 50 mg BID [facility] Administration Miconazole Nitrate 1 applic 05/15/18 02:15 05/15/18 06:51 Monistat-7 Vaginal Cream - PV 05/20/18 22:01 1 applic HS [facility] Administration Non-Formulary Medication 1 each 05/11/18 10:00 Fluticasone/Salmeterol [Airduo Respiclick 113-14 Mcg] IH DAILY [facility] Nystatin 1 applic 05/11/18 10:00 05/14/18 22:21 Nystop Powder - TP Not Given BID [facility] Ondansetron HCl 4 mg 05/13/18 16:31 05/13/18 16:51 Zofran Injection IVPB 4 mg Q4H PRN Administration NAUSEA AND/OR VOMITING Pantoprazole Sodium 20 mg 05/11/18 10:00 05/14/18 10:01 Protonix - PO 20 mg DAILY [facility] Administration Ramipril 5 mg 05/11/18 10:00 05/14/18 10:02 Altace - PO 5 mg DAILY [facility] Administration Sevelamer Carbonate 800 mg 05/11/18 08:00 05/14/18 18:20 Renvela - PO Not Given TIDCM [facility] Warfarin Sodium 2.5 mg 05/11/18 18:00 05/14/18 18:24 Coumadin - PO 2.5 mg DAILY@1800 [facility] Administration Impression 1. ESRD 2. HTN 3. DM 4. foot ulcer 5. obesity 6. anemia Plan - will have HD today - abx per ID - renal diet - lasix on non HD days - HD 3:30 permacath, 2 k bath [facility]
[2018-05-15] MEDS ORDERED: PT OWN MED DRAWER 7, Y5N ONE (09:44)
[2018-05-15] MEDS: HEPARIN NA (PORCINE) 5,000 UNITS/ML 1ML VIAL SQ SCH ×2 (09:50→22:53)
[2018-05-15] MEDS: SEVELAMER CARBONATE 800 MG TAB (FP) PO SCH ×3 (09:50→18:21)
--- NOTE | 2018-05-15 11:32 | PN ---
Progress Note (short form) - Note Progress Note: Vascular Surgery Right heel ulcer. CTA official read still pending. INR is 2.25. Will continue to follow. Reyes Cutler DO
[2018-05-15] MEDS: ONDANSETRON 4 MG/2 ML VIAL IVPB PRN (11:52)
[2018-05-15] MEDS: DOCUSATE SODIUM 100 MG CAPSULE (FP) PO SCH ×2 (13:36→22:50)
[2018-05-15] MEDS: METOPROLOL TARTRATE 50 MG TABLET (FP) PO SCH ×2 (13:36→22:50)
[2018-05-15] MEDS ORDERED: EPOETIN ALFA 3,000 UNIT/1 ML ML IVPUSH ONE (14:00)
[2018-05-15 14:55] LABS: HEMATOCRIT 24.6 % (32.4-45.2); HEMOGLOBIN 7.8 GM/dL (10.7-15.3); MCH 31.7 pg (25.7-33.7); MCHC 31.9 g/dl (32.0-36.0); MEAN CELL VOLUME 99.5 fl (80-96); MEAN PLT VOLUME 8.7 fl (7.5-11.1); PLATELET COUNT 180 K/MM3 (134-434); RBC 2.47 M/mm3 (3.60-5.2); RDW 21.6 % (11.6-15.6); WHITE BLOOD COUNT 8.4 K/mm3 (4.0-10.0)
[2018-05-15 15:27] LABS: ANION GAP 10 MMOL/L (8-16); BLOOD UREA NITROGEN 24 mg/dL (7-18); CALCIUM 7.8 mg/dL (8.5-10.1); CHLORIDE 99 mmol/L (98-107); CO2 27 mmol/L (21-32); CREATININE 4.1 mg/dL (0.55-1.3); GLUCOSE,RANDOM 200 mg/dL (74-106); POTASSIUM 3.6 mmol/L (3.5-5.1); SODIUM 136 mmol/L (136-145)
[2018-05-15] MEDS ORDERED: HEPARIN NA (PORCINE) 5,000 UNITS/ML 1ML VIAL IVPUSH ONE (15:31)
[2018-05-15 16:31] LABS: HEMATOCRIT 28.2 % (32.4-45.2); MCH 31.7 pg (25.7-33.7); MCHC 31.8 g/dl (32.0-36.0); MEAN CELL VOLUME 99.4 fl (80-96); MEAN PLT VOLUME 8.7 fl (7.5-11.1); PLATELET COUNT 193 K/MM3 (134-434); RBC 2.83 M/mm3 (3.60-5.2); RDW 22.2 % (11.6-15.6); WHITE BLOOD COUNT 9.3 K/mm3 (4.0-10.0)
[2018-05-15] MEDS: COLLAGENASE CLOSTRIDIUM HIST. 30 GRAMS TUBE TP SCH (18:20)
[2018-05-15] MEDS: WARFARIN NA 2.5 MG TABLET (FP) PO SCH (18:21)
[2018-05-15] MEDS: RAMIPRIL 5 MG CAPSULE (FP) PO SCH (18:23)
[2018-05-15] MEDS: FUROSEMIDE 20 MG TABLET (FP) PO SCH (18:24)
[2018-05-15] MEDS: PANTOPRAZOLE 20 MG TABLET (FP) PO SCH (18:24)
[2018-05-15] MEDS: DULoxetine HCL 20 MG CAPSULE.DR (FP) PO SCH (18:24)
[2018-05-15] MEDS: NYSTATIN POWDER 100,000 UNITS/GM - 15 GM TOPICAL POWDER TP SCH ×2 (18:24→22:52)
--- NOTE | 2018-05-15 19:05 | PN ---
Progress Note, Physician History of Present Illness: Pt seen and examined. Events noted, labs/imaging results reviewed. She is afebrile. Had discomfort at Chest cath site earlier. Cdiff testing neg - Current Medication List Current Medications: Active Medications Acetaminophen/Codeine Phosphate (Tylenol # 3 -) 1 tab PO Q6H PRN PRN Reason: PAIN LEVEL 1-5 Last Admin: 05/15/18 18:55 Dose: 1 tab Atorvastatin Calcium (Lipitor -) 10 mg PO HS [facility] Last Admin: 05/14/18 22:20 Dose: 10 mg Collagenase (Santyl -) 1 applic TP DAILY [facility]; Protocol Last Admin: 05/15/18 18:20 Dose: 1 applic Docusate Sodium (Colace -) 100 mg PO BID [facility] Last Admin: 05/15/18 13:36 Dose: Not Given Duloxetine HCl (Cymbalta -) 20 mg PO DAILY [facility] Last Admin: 05/15/18 18:24 Dose: Not Given Furosemide (Lasix -) 60 mg PO DAILY [facility] Last Admin: 05/15/18 18:24 Dose: Not Given Heparin Sodium (Porcine) (Heparin -) 5,000 unit SQ BID [facility] Last Admin: 05/15/18 09:50 Dose: 5,000 unit Piperacillin Sod/Tazobactam (Sod 2.25 gm/ Dextrose) 50 mls @ 100 mls/hr IVPB Q6H-IV [facility]; Protocol Last Admin: 05/15/18 18:11 Dose: 100 mls/hr Insulin Aspart (Novolog Vial Sliding Scale -) 1 vial SQ ACHS [facility]; Protocol Last Admin: 05/15/18 18:18 Dose: 4 unit Insulin Detemir (Levemir Vial) 30 units SQ ACBK [facility] Last Admin: 05/15/18 06:52 Dose: Not Given Levothyroxine Sodium (Synthroid -) 75 mcg PO ACBK [facility] Last Admin: 05/15/18 06:21 Dose: 75 mcg Metoprolol Tartrate (Lopressor -) 50 mg PO BID [facility] Last Admin: 05/15/18 13:36 Dose: Not Given Miconazole Nitrate (Monistat-7 Vaginal Cream -) 1 applic PV HS [facility] Stop: 05/20/18 22:01 Last Admin: 05/15/18 06:51 Dose: 1 applic Non-Formulary Medication (Fluticasone/Salmeterol [Airduo Respiclick 113-14 Mcg] ) 1 each IH DAILY [facility] Nystatin (Nystop Powder -) 1 applic TP BID [facility] Last Admin: 05/15/18 18:24 Dose: Not Given Ondansetron HCl (Zofran Injection) 4 mg IVPB Q4H PRN PRN Reason: NAUSEA AND/OR VOMITING Last Admin: 05/15/18 11:52 Dose: 4 mg Pantoprazole Sodium (Protonix -) 20 mg PO DAILY [facility] Last Admin: 05/15/18 18:24 Dose: Not Given Ramipril (Altace -) 5 mg PO DAILY [facility] Last Admin: 05/15/18 18:23 Dose: Not Given Sevelamer Carbonate (Renvela -) 800 mg PO TIDCM [facility] Last Admin: 05/15/18 18:21 Dose: Not Given Warfarin Sodium (Coumadin -) 2.5 mg PO DAILY@1800 [facility] Last Admin: 05/15/18 18:21 Dose: Not Given - Objective Vital Signs: Vital Signs Temperature 98.4 F 05/15/18 13:55 Pulse Rate 100 H 05/15/18 17:13 Respiratory Rate 18 05/15/18 17:13 Blood Pressure 148/74 05/15/18 17:13 O2 Sat by Pulse Oximetry (%) 99 05/15/18 09:00 Constitutional: Yes: No Distress, Calm Cardiovascular: Yes: Regular Rate and Rhythm Respiratory: Yes: Regular Gastrointestinal: Yes: Normal Bowel Sounds, Soft, Abdomen, Obese Wound/Incision: Yes: Other (Rt heel ulcer with clear yellow drainage, no eschar/ necrosis, mild foot edema) Neurological: Yes: Alert, Oriented Labs: CBC, BMP 05/15/18 15:45 05/15/18 14:00 INR, PTT INR 2.24 (0.83-1.09) H 05/15/18 05:30 Microbiology 05/10/18 15:10 Blood - Peripheral Venous Blood Culture - Final NO GROWTH AFTER 5 DAYS INCUBATION 05/10/18 15:10 Blood - Peripheral Venous Blood Culture - Final NO GROWTH AFTER 5 DAYS INCUBATION 05/14/18 17:00 Stool Clostridioides difficile Antigen - Final 05/14/18 17:00 Stool Clostridioides difficile Toxin Assay - Final 05/10/18 15:10 Foot - Left Heel Gram Stain - Final 05/10/18 15:10 Foot - Left Heel Wound Culture - Final Morganella Morganii Proteus Mirabilis Haemophilus Parainfluenzae I - ....Imaging MRI: Report Reviewed Problem List - Problems (1) Asthma Code(s): J45.909 - UNSPECIFIED ASTHMA, UNCOMPLICATED Qualifiers: Asthma severity: unspecified severity Asthma persistence: intermittent Asthma complication type: unspecified Qualified Code(s): J45.20 - Mild intermittent asthma, uncomplicated (2) Diabetes Code(s): E11.9 - TYPE 2 DIABETES MELLITUS WITHOUT COMPLICATIONS Qualifiers: Diabetes mellitus type: type 2 Diabetes mellitus termite renewal inspector insulin use: without senior care use Diabetes mellitus complication status: with unspecified complications Qualified Code(s): E11.8 - Type 2 diabetes mellitus with unspecified complications (3) ESRD (end stage renal disease) Code(s): N18.6 - END STAGE RENAL DISEASE (4) GERD (gastroesophageal reflux disease) Code(s): K21.9 - GASTRO-ESOPHAGEAL REFLUX DISEASE WITHOUT ESOPHAGITIS Qualifiers: Esophagitis presence: esophagitis presence not specified Qualified Code(s) : K21.9 - Gastro-esophageal reflux disease without esophagitis (5) S/P CABG x 3 Code(s): Z95.1 - PRESENCE OF AORTOCORONARY BYPASS GRAFT (6) Wound of foot Code(s): S91.309A - UNSPECIFIED OPEN WOUND, UNSPECIFIED FOOT, INITIAL ENCOUNTER Assessment/Plan Infected Rt heel ulcer/OM DM with neuropathy CAD s/p CABG Obesity ESRD on HD COPD -- continue Zosyn IV -- wbc now normal, afebrile -- continue wound care -- Vascular f/u
--- NOTE | 2018-05-15 21:55 | PN ---
Progress Note, Physician History of Present Illness: Pt compolains of chest pain substernal after sneezing for 5-10 minutes - Current Medication List Current Medications: Active Medications Acetaminophen/Codeine Phosphate (Tylenol # 3 -) 1 tab PO Q6H PRN PRN Reason: PAIN LEVEL 1-5 Last Admin: 05/15/18 18:55 Dose: 1 tab Atorvastatin Calcium (Lipitor -) 10 mg PO [facility] Last Admin: 05/14/18 22:20 Dose: 10 mg Collagenase (Santyl -) 1 applic TP DAILY [facility]; Protocol Last Admin: 05/15/18 18:20 Dose: 1 applic Docusate Sodium (Colace -) 100 mg PO BID [facility] Last Admin: 05/15/18 13:36 Dose: Not Given Duloxetine HCl (Cymbalta -) 20 mg PO DAILY [facility] Last Admin: 05/15/18 18:24 Dose: Not Given Furosemide (Lasix -) 60 mg PO DAILY [facility] Last Admin: 05/15/18 18:24 Dose: Not Given Heparin Sodium (Porcine) (Heparin -) 5,000 unit SQ BID [facility] Last Admin: 05/15/18 09:50 Dose: 5,000 unit Piperacillin Sod/Tazobactam (Sod 2.25 gm/ Dextrose) 50 mls @ 100 mls/hr IVPB Q6H-IV [facility]; Protocol Last Admin: 05/15/18 18:11 Dose: 100 mls/hr Insulin Aspart (Novolog Vial Sliding Scale -) 1 vial SQ [facility]; Protocol Last Admin: 05/15/18 18:18 Dose: 4 unit Insulin Detemir (Levemir Vial) 30 units SQ BK [facility] Last Admin: 05/15/18 06:52 Dose: Not Given Levothyroxine Sodium (Synthroid -) 75 mcg PO ACBK [facility] Last Admin: 05/15/18 06:21 Dose: 75 mcg Metoprolol Tartrate (Lopressor -) 50 mg PO BID [facility] Last Admin: 05/15/18 13:36 Dose: Not Given Miconazole Nitrate (Monistat-7 Vaginal Cream -) 1 applic PV [facility] Stop: 05/20/18 22:01 Last Admin: 05/15/18 06:51 Dose: 1 applic Non-Formulary Medication (Fluticasone/Salmeterol [Airduo Respiclick 113-14 Mcg] ) 1 each IH DAILY [facility] Nystatin (Nystop Powder -) 1 applic TP BID [facility] Last Admin: 05/15/18 18:24 Dose: Not Given Ondansetron HCl (Zofran Injection) 4 mg IVPB Q4H PRN PRN Reason: NAUSEA AND/OR VOMITING Last Admin: 05/15/18 11:52 Dose: 4 mg Pantoprazole Sodium (Protonix -) 20 mg PO DAILY [facility] Last Admin: 05/15/18 18:24 Dose: Not Given Ramipril (Altace -) 5 mg PO DAILY [facility] Last Admin: 05/15/18 18:23 Dose: Not Given Sevelamer Carbonate (Renvela -) 800 mg PO TIDCM [facility] Last Admin: 05/15/18 18:21 Dose: Not Given Warfarin Sodium (Coumadin -) 2.5 mg PO DAILY@1800 [facility] Last Admin: 05/15/18 18:21 Dose: Not Given - Objective Vital Signs: Vital Signs Temperature 98.0 F 05/15/18 18:45 Pulse Rate 102 H 05/15/18 18:45 Respiratory Rate 20 05/15/18 18:45 Blood Pressure 158/80 05/15/18 18:45 O2 Sat by Pulse Oximetry (%) 99 05/15/18 09:00 Neck: Yes: WNL, Supple Cardiovascular: Yes: WNL, Regular Rate and Rhythm Respiratory: Yes: WNL, Regular, CTA Bilaterally Gastrointestinal: Yes: WNL, Normal Bowel Sounds, Soft Extremities: Yes: Other (RT foot w/ dressing) Labs: CBC, BMP 05/15/18 15:45 05/15/18 14:00 INR, PTT INR 2.24 (0.83-1.09) H 05/15/18 05:30 Problem List - Problems (1) Diabetic foot ulcer Assessment/Plan: Cont IV antibxs Code(s): E11.621 - TYPE 2 DIABETES MELLITUS WITH FOOT ULCER; L97.509 - NON- PRESSURE CHRONIC ULCER OTH PRT UNSP FOOT W UNSP SEVERITY (2) Asthma Code(s): J45.909 - UNSPECIFIED ASTHMA, UNCOMPLICATED Qualifiers: Asthma severity: unspecified severity Asthma persistence: intermittent Asthma complication type: unspecified Qualified Code(s): J45.20 - Mild intermittent asthma, uncomplicated (3) CAD (coronary artery disease) Code(s): I25.10 - ATHSCL HEART DISEASE OF [place] CORONARY ARTERY W/O ANG PCTRS (4) ESRD (end stage renal disease) Code(s): N18.6 - END STAGE RENAL DISEASE
[2018-05-15] MEDS: ATORVASTATIN CA 10 MG TABLET (FP) PO SCH (22:50)
[2018-05-15] MEDS ORDERED: diphenhydrAMINE HCL 25 MG CAPSULE (FP) PO ONE (23:15)
[2018-05-16] MEDS: PIPERACILLIN/TAZOB 2.25 GM 2.25 GM in DEXTROSE 5%-WATER - 50 ML IVPB SCH ×4 (05:05→15:52)
[2018-05-16] MEDS: INSULIN (LEVEMIR) 100 UNITS/ML UNITS SQ SCH (06:00)
[2018-05-16] MEDS: LEVOTHYROXINE NA 75 MCG TABLET (FP) PO SCH (06:00)
[2018-05-16] MEDS: INSULIN SLIDING SCALE (NOVOLOG) 1 VIAL SQ SCH ×4 (06:01→21:48)
[2018-05-16] MEDS ORDERED: INSULIN (NOVOLOG) ASPART 100 UNITS/ML 10ML VIAL ONE ×2 (06:20→21:08)
[2018-05-16 07:34] LABS: INR 2.1 (0.83-1.09)
--- NOTE | 2018-05-16 09:10 | PN ---
Progress Note (short form) - Note Progress Note: RENAL Pt known to me from [facility] She appears well says she feels weird. Cant explain, had sneezing episode yesterday followed by chest discomfort during hd. This is the second time it happens Last Vital Signs Temp Pulse Resp BP Pulse Ox 98.6 F 89 20 134/51 L 100 05/16/18 05:49 05/16/18 05:49 05/16/18 05:49 05/16/18 05:49 05/15/18 21:00 lungs bilat crackles cvs s1s2 rr abd soft ext +edema, right foot dressed neuro a+ox3 CBC, BMP 05/15/18 15:45 05/15/18 14:00 Current Medications Generic Name Dose Route Start Last Admin Trade Name Freq PRN Reason Stop Dose Admin Acetaminophen/Codeine Phosphate 1 tab 05/14/18 18:02 05/15/18 18:55 Tylenol # 3 - PO 1 tab Q6H PRN Administration PAIN LEVEL 1-5 Atorvastatin Calcium 10 mg 05/10/18 22:00 05/15/18 22:50 Lipitor - PO 10 mg HS [facility] Administration Collagenase 1 applic 05/13/18 10:00 05/15/18 18:20 Santyl - TP 1 applic DAILY [facility] Administration Protocol Docusate Sodium 100 mg 05/10/18 22:00 05/15/18 22:50 Colace - PO 100 mg BID [facility] Administration Duloxetine HCl 20 mg 05/11/18 10:00 05/15/18 18:24 Cymbalta - PO Not Given DAILY [facility] Furosemide 60 mg 05/11/18 12:57 05/15/18 18:24 Lasix - PO Not Given DAILY [facility] Heparin Sodium (Porcine) 5,000 unit 05/10/18 22:00 05/15/18 22:53 Heparin - SQ Not Given BID [facility] Piperacillin Sod/Tazobactam 50 mls @ 100 mls/hr 05/11/18 15:00 05/16/18 05:05 Sod 2.25 gm/ Dextrose IVPB Not Given Q6H-IV [facility] Protocol Insulin Aspart 1 vial 05/10/18 22:00 05/16/18 06:01 Novolog Vial Sliding Scale - SQ 2 unit ACHS [facility] Administration Protocol Insulin Detemir 30 units 05/11/18 07:00 05/16/18 06:00 Levemir Vial SQ Not Given ACBK [facility] Levothyroxine Sodium 75 mcg 05/11/18 07:00 05/16/18 06:00 Synthroid - PO 75 mcg ACBK [facility] Administration Metoprolol Tartrate 50 mg 05/10/18 22:00 05/15/18 22:50 Lopressor - PO 50 mg BID [facility] Administration Miconazole Nitrate 1 applic 05/15/18 02:15 05/15/18 22:51 Monistat-7 Vaginal Cream - PV 05/20/18 22:01 1 applic HS [facility] Administration Non-Formulary Medication 1 each 05/11/18 10:00 Fluticasone/Salmeterol [Airduo Respiclick 113-14 Mcg] IH DAILY [facility] Nystatin 1 applic 05/11/18 10:00 05/15/18 22:52 Nystop Powder - TP 1 applic BID [facility] Administration Ondansetron HCl 4 mg 05/13/18 16:31 05/15/18 11:52 Zofran Injection IVPB 4 mg Q4H PRN Administration NAUSEA AND/OR VOMITING Pantoprazole Sodium 20 mg 05/11/18 10:00 05/15/18 18:24 Protonix - PO Not Given DAILY [facility] Ramipril 5 mg 05/11/18 10:00 05/15/18 18:23 Altace - PO Not Given DAILY [facility] Sevelamer Carbonate 800 mg 05/11/18 08:00 05/15/18 18:21 Renvela - PO Not Given TIDCM [facility] Warfarin Sodium 2.5 mg 05/11/18 18:00 05/15/18 18:21 Coumadin - PO Not Given DAILY@1800 [facility] Impression 1. ESRD 2. HTN 3. DM 4. foot ulcer 5. obesity 6. anemia 7. unclear as to what happened yesterday during hd, perhaps an allergic reaction Plan - would dialyze again in 2 days - abx per ID - renal diet - lasix on non HD days - HD 3:30 permacath, 2 k bath -monitor hemoglobin -will need to consider dialysis while in amonitored setting to see if her event is cardiac in nature MV MV
[2018-05-16] MEDS: SEVELAMER CARBONATE 800 MG TAB (FP) PO SCH ×3 (10:09→16:50)
[2018-05-16] MEDS ORDERED: PT OWN MED DRAWER 7, Y5N ONE (11:07)
[2018-05-16] MEDS ORDERED: DEXTROSE 5%-WATER - 50 ML IVPB ONE (11:07)
[2018-05-16] MEDS ORDERED: PIPERACILLIN/TAZOBACTAM 2.25 GM VIAL IVPB ONE (11:07)
[2018-05-16] MEDS: FUROSEMIDE 20 MG TABLET (FP) PO SCH (11:14)
[2018-05-16] MEDS: DOCUSATE SODIUM 100 MG CAPSULE (FP) PO SCH ×2 (11:14→21:48)
[2018-05-16] MEDS: RAMIPRIL 5 MG CAPSULE (FP) PO SCH (11:15)
[2018-05-16] MEDS: METOPROLOL TARTRATE 50 MG TABLET (FP) PO SCH ×2 (11:15→21:48)
[2018-05-16] MEDS: DULoxetine HCL 20 MG CAPSULE.DR (FP) PO SCH (11:15)
[2018-05-16] MEDS: PANTOPRAZOLE 20 MG TABLET (FP) PO SCH (11:15)
[2018-05-16] MEDS: NYSTATIN POWDER 100,000 UNITS/GM - 15 GM TOPICAL POWDER TP SCH ×2 (11:15→21:53)
[2018-05-16] MEDS: HEPARIN NA (PORCINE) 5,000 UNITS/ML 1ML VIAL SQ SCH (11:15)
[2018-05-16] MEDS: ACETAMINOPHEN WITH CODEINE 300MG/30MG TABLET PO PRN (12:04)
[2018-05-16] MEDS ORDERED: diphenhydrAMINE HCL 25 MG CAPSULE (FP) PO ONE (13:54)
[2018-05-16] MEDS ORDERED: CEFEPIME 1 GM in DEXTROSE 5%-WATER 100 ML IVPB ONE (15:52)
--- NOTE | 2018-05-16 15:55 | PN ---
Progress Note, Physician History of Present Illness: Pt c/o generalized itching that began yesterday and generally not feeling well. Feels better after benadryl. Refused doses of Zosyn last night and today. No rash/SOB noted. No chest pain/sneezing episodes today. No other complaints. States she feels well at this time. - Current Medication List Current Medications: Active Medications Acetaminophen/Codeine Phosphate (Tylenol # 3 -) 1 tab PO Q6H PRN PRN Reason: PAIN LEVEL 1-5 Last Admin: 05/16/18 12:04 Dose: 1 tab Atorvastatin Calcium (Lipitor -) 10 mg PO [facility] Last Admin: 05/15/18 22:50 Dose: 10 mg Collagenase (Santyl -) 1 applic TP DAILY [facility]; Protocol Last Admin: 05/15/18 18:20 Dose: 1 applic Docusate Sodium (Colace -) 100 mg PO BID [facility] Last Admin: 05/16/18 11:14 Dose: 100 mg Duloxetine HCl (Cymbalta -) 20 mg PO DAILY [facility] Last Admin: 05/16/18 11:15 Dose: 20 mg Furosemide (Lasix -) 60 mg PO DAILY [facility] Last Admin: 05/16/18 11:14 Dose: 60 mg Heparin Sodium (Porcine) (Heparin -) 5,000 unit SQ BID [facility] Last Admin: 05/16/18 11:15 Dose: 5,000 unit Piperacillin Sod/Tazobactam (Sod 2.25 gm/ Dextrose) 50 mls @ 100 mls/hr IVPB Q6H-IV [facility]; Protocol Last Admin: 05/16/18 13:58 Dose: Not Given Insulin Aspart (Novolog Vial Sliding Scale -) 1 vial SQ ACHS [facility]; Protocol Last Admin: 05/16/18 14:42 Dose: Not Given Insulin Detemir (Levemir Vial) 30 units SQ ACBK [facility] Last Admin: 05/16/18 06:00 Dose: Not Given Levothyroxine Sodium (Synthroid -) 75 mcg PO ACBK [facility] Last Admin: 05/16/18 06:00 Dose: 75 mcg Metoprolol Tartrate (Lopressor -) 50 mg PO BID [facility] Last Admin: 05/16/18 11:15 Dose: 50 mg Miconazole Nitrate (Monistat-7 Vaginal Cream -) 1 applic PV [facility] Stop: 05/20/18 22:01 Last Admin: 05/15/18 22:51 Dose: 1 applic Non-Formulary Medication (Fluticasone/Salmeterol [Airduo Respiclick 113-14 Mcg] ) 1 each IH DAILY [facility] Nystatin (Nystop Powder -) 1 applic TP BID [facility] Last Admin: 05/16/18 11:15 Dose: 1 applic Ondansetron HCl (Zofran Injection) 4 mg IVPB Q4H PRN PRN Reason: NAUSEA AND/OR VOMITING Last Admin: 05/15/18 11:52 Dose: 4 mg Pantoprazole Sodium (Protonix -) 20 mg PO DAILY [facility] Last Admin: 05/16/18 11:15 Dose: 20 mg Ramipril (Altace -) 5 mg PO DAILY [facility] Last Admin: 05/16/18 11:15 Dose: 5 mg Sevelamer Carbonate (Renvela -) 800 mg PO TIDCM [facility] Last Admin: 05/16/18 13:19 Dose: Not Given Warfarin Sodium (Coumadin -) 2.5 mg PO DAILY@1800 [facility] Last Admin: 05/15/18 18:21 Dose: Not Given - Objective Vital Signs: Vital Signs Temperature 98.8 F 05/16/18 14:48 Pulse Rate 75 05/16/18 14:48 Respiratory Rate 18 05/16/18 14:48 Blood Pressure 112/57 L 05/16/18 14:48 O2 Sat by Pulse Oximetry (%) 98 05/16/18 09:00 Constitutional: Yes: No Distress, Calm Eyes: Yes: Conjunctiva Clear Cardiovascular: Yes: Regular Rate and Rhythm Respiratory: Yes: Regular Gastrointestinal: Yes: Normal Bowel Sounds, Soft, Abdomen, Obese Integumentary: Yes: WNL Wound/Incision: Yes: Other (Dressing intact) Neurological: Yes: Alert, Oriented Labs: CBC, BMP 05/15/18 15:45 05/15/18 14:00 INR, PTT INR 2.10 (0.83-1.09) H 05/16/18 06:00 Problem List - Problems (1) Asthma Code(s): J45.909 - UNSPECIFIED ASTHMA, UNCOMPLICATED Qualifiers: Asthma severity: unspecified severity Asthma persistence: intermittent Asthma complication type: unspecified Qualified Code(s): J45.20 - Mild intermittent asthma, uncomplicated (2) Diabetes Code(s): E11.9 - TYPE 2 DIABETES MELLITUS WITHOUT COMPLICATIONS Qualifiers: Diabetes mellitus type: type 2 Diabetes mellitus long term acute care registered nurse insulin use: without intermediate use Diabetes mellitus complication status: with unspecified complications Qualified Code(s): E11.8 - Type 2 diabetes mellitus with unspecified complications (3) ESRD (end stage renal disease) Code(s): N18.6 - END STAGE RENAL DISEASE (4) GERD (gastroesophageal reflux disease) Code(s): K21.9 - GASTRO-ESOPHAGEAL REFLUX DISEASE WITHOUT ESOPHAGITIS Qualifiers: Esophagitis presence: esophagitis presence not specified Qualified Code(s) : K21.9 - Gastro-esophageal reflux disease without esophagitis (5) S/P CABG x 3 Code(s): Z95.1 - PRESENCE OF AORTOCORONARY BYPASS GRAFT (6) Wound of foot Code(s): S91.309A - UNSPECIFIED OPEN WOUND, UNSPECIFIED FOOT, INITIAL ENCOUNTER Assessment/Plan Infected Rt heel ulcer/OM DM with neuropathy CAD s/p CABG Obesity ESRD COPD Pruritis - possible allergic reaction to Zosyn -- switch to Cefepime -- monitor for signs of persistent/worsening allergic reaction -- Wound appears clean -- continue wound care -- Vascular f/u Pt currently stable
[2018-05-16] MEDS ORDERED: DEXTROSE 5%-WATER 100 ML IVPB ONE (17:17)
[2018-05-16] MEDS ORDERED: CEFEPIME HCL 1 GM VIAL (RESTRICTED TO ID) ONE (17:17)
[2018-05-16] MEDS: COLLAGENASE CLOSTRIDIUM HIST. 30 GRAMS TUBE TP SCH (18:56)
[2018-05-16] MEDS: WARFARIN NA 2.5 MG TABLET (FP) PO SCH (21:47)
[2018-05-16] MEDS: ATORVASTATIN CA 10 MG TABLET (FP) PO SCH (21:48)
[2018-05-16] MEDS: MICONAZOLE NITRATE 2% VAGINAL CREAM 45 GM TUBE PV SCH (21:53)
--- NOTE | 2018-05-16 23:16 | PN ---
Progress Note, Physician History of Present Illness: Pt denies any chest pain - Current Medication List Current Medications: Active Medications Acetaminophen/Codeine Phosphate (Tylenol # 3 -) 1 tab PO Q6H PRN PRN Reason: PAIN LEVEL 1-5 Last Admin: 05/16/18 12:04 Dose: 1 tab Atorvastatin Calcium (Lipitor -) 10 mg PO [facility] Last Admin: 05/16/18 21:48 Dose: 10 mg Collagenase (Santyl -) 1 applic TP DAILY [facility]; Protocol Last Admin: 05/16/18 18:56 Dose: 1 applic Docusate Sodium (Colace -) 100 mg PO BID [facility] Last Admin: 05/16/18 21:48 Dose: 100 mg Duloxetine HCl (Cymbalta -) 20 mg PO DAILY [facility] Last Admin: 05/16/18 11:15 Dose: 20 mg Furosemide (Lasix -) 60 mg PO DAILY [facility] Last Admin: 05/16/18 11:14 Dose: 60 mg Cefepime HCl 1 gm/ Dextrose 100 mls @ 200 mls/hr IVPB DAILY@1800 [facility]; Protocol Insulin Aspart (Novolog Vial Sliding Scale -) 1 vial SQ [facility]; Protocol Last Admin: 05/16/18 21:48 Dose: 6 unit Insulin Detemir (Levemir Vial) 30 units SQ [facility] Last Admin: 05/16/18 06:00 Dose: Not Given Levothyroxine Sodium (Synthroid -) 75 mcg PO BK [facility] Last Admin: 05/16/18 06:00 Dose: 75 mcg Metoprolol Tartrate (Lopressor -) 50 mg PO BID [facility] Last Admin: 05/16/18 21:48 Dose: 50 mg Miconazole Nitrate (Monistat-7 Vaginal Cream -) 1 applic PV [facility] Stop: 05/20/18 22:01 Last Admin: 05/16/18 21:53 Dose: 1 applic Nystatin (Nystop Powder -) 1 applic TP BID [facility] Last Admin: 05/16/18 21:53 Dose: 1 applic Ondansetron HCl (Zofran Injection) 4 mg IVPB Q4H PRN PRN Reason: NAUSEA AND/OR VOMITING Last Admin: 05/15/18 11:52 Dose: 4 mg Pantoprazole Sodium (Protonix -) 20 mg PO DAILY [facility] Last Admin: 05/16/18 11:15 Dose: 20 mg Ramipril (Altace -) 5 mg PO DAILY [facility] Last Admin: 05/16/18 11:15 Dose: 5 mg Sevelamer Carbonate (Renvela -) 800 mg PO TIDCM [facility] Last Admin: 05/16/18 16:50 Dose: Not Given Warfarin Sodium (Coumadin -) 2.5 mg PO DAILY@1800 [facility] Last Admin: 05/16/18 21:47 Dose: 2.5 mg - Objective Vital Signs: Vital Signs Temperature 98.5 F 05/16/18 19:33 Pulse Rate 77 05/16/18 19:33 Respiratory Rate 18 05/16/18 19:33 Blood Pressure 146/58 L 05/16/18 19:33 O2 Sat by Pulse Oximetry (%) 98 05/16/18 09:00 Constitutional: Yes: Well Nourished Neck: Yes: WNL Cardiovascular: Yes: WNL, Regular Rate and Rhythm Respiratory: Yes: WNL, Regular, CTA Bilaterally Gastrointestinal: Yes: WNL, Normal Bowel Sounds, Soft Extremities: Yes: Other (Rt foot w/ dressing) Labs: CBC, BMP 05/15/18 15:45 05/15/18 14:00 INR, PTT INR 2.10 (0.83-1.09) H 05/16/18 06:00 Problem List - Problems (1) Diabetic foot ulcer Assessment/Plan: Cont IV antibxs Code(s): E11.621 - TYPE 2 DIABETES MELLITUS WITH FOOT ULCER; L97.509 - NON- PRESSURE CHRONIC ULCER OTH PRT UNSP FOOT W UNSP SEVERITY (2) Asthma Code(s): J45.909 - UNSPECIFIED ASTHMA, UNCOMPLICATED Qualifiers: Asthma severity: unspecified severity Asthma persistence: intermittent Asthma complication type: unspecified Qualified Code(s): J45.20 - Mild intermittent asthma, uncomplicated (3) Diabetes Code(s): E11.9 - TYPE 2 DIABETES MELLITUS WITHOUT COMPLICATIONS Qualifiers: Diabetes mellitus type: type 2 Diabetes mellitus middle or intermediate school principal insulin use: without chcf use Diabetes mellitus complication status: with unspecified complications Qualified Code(s): E11.8 - Type 2 diabetes mellitus with unspecified complications (4) ESRD (end stage renal disease) Code(s): N18.6 - END STAGE RENAL DISEASE (5) GERD (gastroesophageal reflux disease) Code(s): K21.9 - GASTRO-ESOPHAGEAL REFLUX DISEASE WITHOUT ESOPHAGITIS Qualifiers: Esophagitis presence: esophagitis presence not specified Qualified Code(s) : K21.9 - Gastro-esophageal reflux disease without esophagitis (6) CAD (coronary artery disease) Code(s): I25.10 - ATHSCL HEART DISEASE OF [place] CORONARY ARTERY W/O ANG PCTRS
[2018-05-17] MEDS: ACETAMINOPHEN WITH CODEINE 300MG/30MG TABLET PO PRN ×3 (00:03→22:32)
[2018-05-17] MEDS: LEVOTHYROXINE NA 75 MCG TABLET (FP) PO SCH (06:03)
[2018-05-17] MEDS: INSULIN (LEVEMIR) 100 UNITS/ML UNITS SQ SCH (06:03)
[2018-05-17] MEDS: INSULIN SLIDING SCALE (NOVOLOG) 1 VIAL SQ SCH ×4 (06:05→22:39)
[2018-05-17 08:52] LABS: INR 1.65 (0.83-1.09); PROTHROMBIN TIME (PATIENT) 19.6 SEC (9.7-13.0)
[2018-05-17] MEDS: SEVELAMER CARBONATE 800 MG TAB (FP) PO SCH ×3 (09:37→17:01)
--- NOTE | 2018-05-17 09:42 | PN ---
Progress Note (short form) - Note Progress Note: CTA with LE runoff completed on 05/13/18 but hasn't been read yet. Potential operative plan is contingent on above exam. Called Radiology Dept and asked that they provide official interpretation. Vascular Surgery to cont following
[2018-05-17] MEDS ORDERED: PT OWN MED DRAWER 7, Y5N ONE (10:08)
--- NOTE | 2018-05-17 10:17 | EKG ---
Test Reason : Blood Pressure : / mmHG Vent. Rate : 090 BPM Atrial Rate : 090 BPM P-R Int : 238 ms QRS Dur : 112 ms QT Int : 382 ms P-R-T Axes : 084 122 052 degrees QTc Int : 467 ms SINUS RHYTHM WITH 1ST DEGREE A-V BLOCK POOR R WAVE PROGRESSION ABNORMAL ECG WHEN COMPARED WITH ECG OF 11-MAY-2018 09:13, T WAVE AMPLITUDE HAS INCREASED IN LATERAL LEADS Confirmed by JERE HOLLEY, DARIN ([id number]) on 05/17/2018 10:17:14 AM Referred By: FRANCOISE Confirmed By:DARIN OQUENDO MD
[2018-05-17] MEDS: FUROSEMIDE 20 MG TABLET (FP) PO SCH (10:20)
[2018-05-17] MEDS: PANTOPRAZOLE 20 MG TABLET (FP) PO SCH (10:21)
[2018-05-17] MEDS: METOPROLOL TARTRATE 50 MG TABLET (FP) PO SCH ×2 (10:21→22:32)
[2018-05-17] MEDS: RAMIPRIL 5 MG CAPSULE (FP) PO SCH (10:22)
[2018-05-17] MEDS: DOCUSATE SODIUM 100 MG CAPSULE (FP) PO SCH ×2 (10:22→22:32)
[2018-05-17] MEDS: DULoxetine HCL 20 MG CAPSULE.DR (FP) PO SCH (10:22)
[2018-05-17] MEDS: NYSTATIN POWDER 100,000 UNITS/GM - 15 GM TOPICAL POWDER TP SCH ×2 (10:23→22:32)
[2018-05-17] MEDS: COLLAGENASE CLOSTRIDIUM HIST. 30 GRAMS TUBE TP SCH (10:24)
[2018-05-17] MEDS ORDERED: LOPERAMIDE HCL 2 MG CAPSULE PO PRN (11:09)
--- NOTE | 2018-05-17 12:55 | PN ---
Progress Note, Physician History of Present Illness: patient stable no new issues - Current Medication List Current Medications: Active Medications Acetaminophen/Codeine Phosphate (Tylenol # 3 -) 1 tab PO Q6H PRN PRN Reason: PAIN LEVEL 1-5 Atorvastatin Calcium (Lipitor -) 10 mg PO [facility] Last Admin: 05/16/18 21:48 Dose: 10 mg Collagenase (Santyl -) 1 applic TP DAILY [facility]; Protocol Last Admin: 05/17/18 10:24 Dose: 1 applic Docusate Sodium (Colace -) 100 mg PO BID [facility] Last Admin: 05/17/18 10:22 Dose: 100 mg Duloxetine HCl (Cymbalta -) 20 mg PO DAILY [facility] Last Admin: 05/17/18 10:22 Dose: 20 mg Furosemide (Lasix -) 60 mg PO DAILY [facility] Last Admin: 05/17/18 10:20 Dose: 60 mg Cefepime HCl 1 gm/ Dextrose 100 mls @ 200 mls/hr IVPB DAILY@1800 [facility]; Protocol Insulin Aspart (Novolog Vial Sliding Scale -) 1 vial SQ [facility]; Protocol Last Admin: 05/17/18 12:02 Dose: 4 unit Insulin Detemir (Levemir Vial) 30 units SQ [facility] Last Admin: 05/17/18 06:03 Dose: Not Given Levothyroxine Sodium (Synthroid -) 75 mcg PO BMID [facility] Last Admin: 05/17/18 06:03 Dose: 75 mcg Loperamide HCl (Imodium -) 2 mg PO Q6H PRN PRN Reason: DIARRHEA Last Admin: 05/17/18 11:27 Dose: 2 mg Metoprolol Tartrate (Lopressor -) 50 mg PO BID [facility] Last Admin: 05/17/18 10:21 Dose: 50 mg Miconazole Nitrate (Monistat-7 Vaginal Cream -) 1 applic PV [facility] Stop: 05/20/18 22:01 Last Admin: 05/16/18 21:53 Dose: 1 applic Nystatin (Nystop Powder -) 1 applic TP BID [facility] Last Admin: 05/17/18 10:23 Dose: 1 applic Ondansetron HCl (Zofran Injection) 4 mg IVPB Q4H PRN PRN Reason: NAUSEA AND/OR VOMITING Last Admin: 05/15/18 11:52 Dose: 4 mg Pantoprazole Sodium (Protonix -) 20 mg PO DAILY [facility] Last Admin: 05/17/18 10:21 Dose: 20 mg Ramipril (Altace -) 5 mg PO DAILY [facility] Last Admin: 05/17/18 10:22 Dose: 5 mg Sevelamer Carbonate (Renvela -) 800 mg PO TIDCM [facility] Last Admin: 05/17/18 09:37 Dose: Not Given Warfarin Sodium (Coumadin -) 2.5 mg PO DAILY@1800 [facility] Last Admin: 05/16/18 21:47 Dose: 2.5 mg - Objective Vital Signs: Vital Signs Temperature 98.4 F 05/17/18 10:00 Pulse Rate 81 05/17/18 10:00 Respiratory Rate 18 05/17/18 10:00 Blood Pressure 126/64 05/17/18 10:00 O2 Sat by Pulse Oximetry (%) 96 05/16/18 21:00 Constitutional: Yes: No Distress, Calm Cardiovascular: Yes: Regular Rate and Rhythm Respiratory: Yes: Regular, CTA Bilaterally Gastrointestinal: Yes: Normal Bowel Sounds, Soft Musculoskeletal: Yes: WNL Extremities: Yes: Other Wound/Incision: Yes: Dressing Dry and Intact Neurological: Yes: Alert, Oriented Psychiatric: Yes: Alert, Oriented Labs: CBC, BMP 05/15/18 15:45 05/15/18 14:00 INR, PTT INR 1.65 (0.83-1.09) H 05/17/18 06:53 Assessment/Plan Problem List - Problems (1) Asthma Code(s): J45.909 - UNSPECIFIED ASTHMA, UNCOMPLICATED Qualifiers: Asthma severity: unspecified severity Asthma persistence: intermittent Asthma complication type: unspecified Qualified Code(s): J45.20 - Mild intermittent asthma, uncomplicated (2) Diabetes Code(s): E11.9 - TYPE 2 DIABETES MELLITUS WITHOUT COMPLICATIONS Qualifiers: Diabetes mellitus type: type 2 Diabetes mellitus terminal gauger supervisor insulin use: without terminal gauger supervisor use Diabetes mellitus complication status: with unspecified complications Qualified Code(s): E11.8 - Type 2 diabetes mellitus with unspecified complications (3) ESRD (end stage renal disease) Code(s): N18.6 - END STAGE RENAL DISEASE (4) GERD (gastroesophageal reflux disease) Code(s): K21.9 - GASTRO-ESOPHAGEAL REFLUX DISEASE WITHOUT ESOPHAGITIS Qualifiers: Esophagitis presence: esophagitis presence not specified Qualified Code(s) : K21.9 - Gastro-esophageal reflux disease without esophagitis (5) S/P CABG x 3 Code(s): Z95.1 - PRESENCE OF AORTOCORONARY BYPASS GRAFT (6) Wound of foot Code(s): S91.309A - UNSPECIFIED OPEN WOUND, UNSPECIFIED FOOT, INITIAL ENCOUNTER 7 osteo of the foot plan continue current mgmt abx as planned wound care rest as per the team
--- NOTE | 2018-05-17 13:28 | PN ---
Progress Note, Physician History of Present Illness: Pt seen and examined at bedside. She is awake and alert. She complains of dysuria and burning with urination. - Current Medication List Current Medications: Active Medications Acetaminophen/Codeine Phosphate (Tylenol # 3 -) 1 tab PO Q6H PRN PRN Reason: PAIN LEVEL 1-5 Atorvastatin Calcium (Lipitor -) 10 mg PO [facility] Last Admin: 05/16/18 21:48 Dose: 10 mg Collagenase (Santyl -) 1 applic TP DAILY [facility]; Protocol Last Admin: 05/17/18 10:24 Dose: 1 applic Docusate Sodium (Colace -) 100 mg PO BID [facility] Last Admin: 05/17/18 10:22 Dose: 100 mg Duloxetine HCl (Cymbalta -) 20 mg PO DAILY [facility] Last Admin: 05/17/18 10:22 Dose: 20 mg Furosemide (Lasix -) 60 mg PO DAILY [facility] Last Admin: 05/17/18 10:20 Dose: 60 mg Cefepime HCl 1 gm/ Dextrose 100 mls @ 200 mls/hr IVPB DAILY@1800 [facility]; Protocol Insulin Aspart (Novolog Vial Sliding Scale -) [address] [facility]; Protocol Last Admin: 05/17/18 12:02 Dose: 4 unit Insulin Detemir (Levemir Vial) 30 units SQ [facility] Last Admin: 05/17/18 06:03 Dose: Not Given Levothyroxine Sodium (Synthroid -) 75 mcg PO BK [facility] Last Admin: 05/17/18 06:03 Dose: 75 mcg Loperamide HCl (Imodium -) 2 mg PO Q6H PRN PRN Reason: DIARRHEA Last Admin: 05/17/18 11:27 Dose: 2 mg Metoprolol Tartrate (Lopressor -) 50 mg PO BID [facility] Last Admin: 05/17/18 10:21 Dose: 50 mg Miconazole Nitrate (Monistat-7 Vaginal Cream -) 1 applic PV [facility] Stop: 05/20/18 22:01 Last Admin: 05/16/18 21:53 Dose: 1 applic Nystatin (Nystop Powder -) 1 applic TP BID [facility] Last Admin: 05/17/18 10:23 Dose: 1 applic Ondansetron HCl (Zofran Injection) 4 mg IVPB Q4H PRN PRN Reason: NAUSEA AND/OR VOMITING Last Admin: 05/15/18 11:52 Dose: 4 mg Pantoprazole Sodium (Protonix -) 20 mg PO DAILY [facility] Last Admin: 05/17/18 10:21 Dose: 20 mg Ramipril (Altace -) 5 mg PO DAILY [facility] Last Admin: 05/17/18 10:22 Dose: 5 mg Sevelamer Carbonate (Renvela -) 800 mg PO TIDCM [facility] Last Admin: 05/17/18 09:37 Dose: Not Given Warfarin Sodium (Coumadin -) 2.5 mg PO DAILY@1800 [facility] Last Admin: 05/16/18 21:47 Dose: 2.5 mg - Objective Vital Signs: Vital Signs Temperature 98.4 F 05/17/18 10:00 Pulse Rate 81 05/17/18 10:00 Respiratory Rate 18 05/17/18 10:00 Blood Pressure 126/64 05/17/18 10:00 O2 Sat by Pulse Oximetry (%) 96 05/16/18 21:00 Constitutional: Yes: Calm Eyes: Yes: Conjunctiva Clear HENT: Yes: Atraumatic Neck: Yes: Supple Cardiovascular: Yes: S1, S2 Respiratory: Yes: CTA Bilaterally Gastrointestinal: Yes: Normal Bowel Sounds, Soft Genitourinary: Yes: WNL. No: CVA Tenderness - Left, CVA Tenderness - Right Musculoskeletal: Yes: WNL Edema: Yes Edema: LLE: 1+, RLE: 1+ Neurological: Yes: Oriented Psychiatric: Yes: Oriented Labs: CBC, BMP 05/15/18 15:45 05/15/18 14:00 INR, PTT INR 1.65 (0.83-1.09) H 05/17/18 06:53 Problem List - Problems (1) Diabetes Code(s): E11.9 - TYPE 2 DIABETES MELLITUS WITHOUT COMPLICATIONS Qualifiers: Diabetes mellitus type: type 2 Diabetes mellitus care home insulin use: without care home use Diabetes mellitus complication status: with unspecified complications Qualified Code(s): E11.8 - Type 2 diabetes mellitus with unspecified complications (2) ESRD (end stage renal disease) Code(s): N18.6 - END STAGE RENAL DISEASE Assessment/Plan Current Medications Generic Name Dose Route Start Last Admin Trade Name Freq PRN Reason Stop Dose Admin Acetaminophen/Codeine Phosphate 1 tab 05/17/18 11:10 Tylenol # 3 - PO Q6H PRN PAIN LEVEL 1-5 Atorvastatin Calcium 10 mg 05/10/18 22:00 05/16/18 21:48 Lipitor - PO 10 mg HS [facility] Administration Collagenase 1 applic 05/13/18 10:00 05/17/18 10:24 Santyl - TP 1 applic DAILY [facility] Administration Protocol Docusate Sodium 100 mg 05/10/18 22:00 05/17/18 10:22 Colace - PO 100 mg BID [facility] Administration Duloxetine HCl 20 mg 05/11/18 10:00 05/17/18 10:22 Cymbalta - PO 20 mg DAILY [facility] Administration Furosemide 60 mg 05/11/18 12:57 05/17/18 10:20 Lasix - PO 60 mg DAILY [facility] Administration Cefepime HCl 1 gm/ Dextrose 100 mls @ 200 mls/hr 05/17/18 18:00 IVPB DAILY@1800 [facility] Protocol Insulin Aspart 1 vial 05/10/18 22:00 05/17/18 12:02 Novolog Vial Sliding Scale - SQ 4 unit ACHS [facility] Administration Protocol Insulin Detemir 30 units 05/11/18 07:00 05/17/18 06:03 Levemir Vial SQ Not Given ACBK [facility] Levothyroxine Sodium 75 mcg 05/11/18 07:00 05/17/18 06:03 Synthroid - PO 75 mcg AC[facility] Administration Loperamide HCl 2 mg 05/17/18 11:09 05/17/18 11:27 Imodium - PO 2 mg Q6H PRN Administration DIARRHEA Metoprolol Tartrate 50 mg 05/10/18 22:00 05/17/18 10:21 Lopressor - PO 50 mg BID [facility] Administration Miconazole Nitrate 1 applic 05/15/18 02:15 05/16/18 21:53 Monistat-7 Vaginal Cream - PV 05/20/18 22:01 1 applic HS [facility] Administration Nystatin 1 applic 05/11/18 10:00 05/17/18 10:23 Nystop Powder - TP 1 applic BID [facility] Administration Ondansetron HCl 4 mg 05/13/18 16:31 05/15/18 11:52 Zofran Injection IVPB 4 mg Q4H PRN Administration NAUSEA AND/OR VOMITING Pantoprazole Sodium 20 mg 05/11/18 10:00 05/17/18 10:21 Protonix - PO 20 mg DAILY [facility] Administration Ramipril 5 mg 05/11/18 10:00 05/17/18 10:22 Altace - PO 5 mg DAILY [facility] Administration Sevelamer Carbonate 800 mg 05/11/18 08:00 05/17/18 09:37 Renvela - PO Not Given TIDCM [facility] Warfarin Sodium 2.5 mg 05/16/18 21:15 05/16/18 21:47 Coumadin - PO 2.5 mg DAILY@1800 [facility] Administration Impression 1. ESRD 2. HTN 3. DM 4. foot ulcer 5. obesity 6. anemia Plan - next HD tomorrow - send ua and cultures - abx per ID - renal diet - lasix on non HD days - HD 3:30 permacath, 2 k bath - po lasix on non hd days
--- NOTE | 2018-05-17 14:52 | PN ---
Progress Note (short form) - Note Progress Note: VAsc[facility] Surgery Pt seen and examined. Right heel ulcer. CTA read -- shows heavy calcifications in right leg. Unable to really see any runoff clearly. Pt will need angiogram. Please start IV heparin and DC warfarin once INR falls below 2 if pt needs AC. PLease clear from a cardiology standpoint for angiogram. Reyes Cutler DO
[2018-05-17] MEDS ORDERED: CEFEPIME HCL 1 GM VIAL (RESTRICTED TO ID) ONE (16:43)
[2018-05-17] MEDS ORDERED: DEXTROSE 5%-WATER 100 ML IVPB ONE (16:44)
[2018-05-17] MEDS: diphenhydrAMINE HCL 25 MG CAPSULE (FP) PO PRN (16:57)
[2018-05-17] MEDS: WARFARIN NA 2.5 MG TABLET (FP) PO SCH (17:00)
[2018-05-17] MEDS: CEFEPIME 1 GM in DEXTROSE 5%-WATER 100 ML IVPB SCH (17:00)
[2018-05-17] MEDS ORDERED: HEPARIN NA (PORCINE) 5,000 UNITS/ML 1ML VIAL IVPUSH PRN ×2 (19:18)
--- NOTE | 2018-05-17 19:26 | PN ---
Progress Note, Physician History of Present Illness: doing well - Current Medication List Current Medications: Active Medications Acetaminophen/Codeine Phosphate (Tylenol # 3 -) 1 tab PO Q6H PRN PRN Reason: PAIN LEVEL 1-5 Atorvastatin Calcium (Lipitor -) 10 mg PO HS [facility] Last Admin: 05/16/18 21:48 Dose: 10 mg Collagenase (Santyl -) 1 applic TP DAILY [facility]; Protocol Last Admin: 05/17/18 10:24 Dose: 1 applic Diphenhydramine HCl (Benadryl -) 25 mg PO Q6H PRN PRN Reason: ITCHING Last Admin: 05/17/18 16:57 Dose: 25 mg Docusate Sodium (Colace -) 100 mg PO BID [facility] Last Admin: 05/17/18 10:22 Dose: 100 mg Duloxetine HCl (Cymbalta -) 20 mg PO DAILY [facility] Last Admin: 05/17/18 10:22 Dose: 20 mg Epoetin Hang (Procrit -) 6,000 unit IVPUSH ONCE ONE Stop: 05/18/18 13:29 Furosemide (Lasix -) 60 mg PO DAILY [facility] Last Admin: 05/17/18 10:20 Dose: 60 mg Heparin Sodium (Porcine) (Heparin -) 1,000 unit IVPUSH PRN PRN PRN Reason: Heparin Heparin Sodium (Porcine) (Heparin -) 5,000 unit IVPUSH PRN PRN PRN Reason: Heparin Cefepime HCl 1 gm/ Dextrose 100 mls @ 200 mls/hr IVPB DAILY@1800 [facility]; Protocol Last Admin: 05/17/18 17:00 Dose: 200 mls/hr Sodium Chloride (Normal Saline -) 250 mls @ 3,000 mls/hr IV PRN PRN PRN Reason: Hypotension during Dialysis Stop: 05/18/18 13:29 HEPARIN SOD,PORK IN 0.45% NACL (Heparin-1/2ns 25,000 Units/500) 25,000 units in 500 mls @ 20 mls/hr IVPB TITR [facility]; Protocol Insulin Aspart (Novolog Vial Sliding Scale -) 1 vial SQ ACHS [facility]; Protocol Last Admin: 05/17/18 16:38 Dose: 4 unit Insulin Detemir (Levemir Vial) 30 units SQ ACBK [facility] Last Admin: 05/17/18 06:03 Dose: Not Given Levothyroxine Sodium (Synthroid -) 75 mcg PO ACBK [facility] Last Admin: 05/17/18 06:03 Dose: 75 mcg Loperamide HCl (Imodium -) 2 mg PO Q6H PRN PRN Reason: DIARRHEA Last Admin: 05/17/18 11:27 Dose: 2 mg Metoprolol Tartrate (Lopressor -) 50 mg PO BID [facility] Last Admin: 05/17/18 10:21 Dose: 50 mg Miconazole Nitrate (Monistat-7 Vaginal Cream -) 1 applic PV HS [facility] Stop: 05/20/18 22:01 Last Admin: 05/16/18 21:53 Dose: 1 applic Nystatin (Nystop Powder -) 1 applic TP BID [facility] Last Admin: 05/17/18 10:23 Dose: 1 applic Ondansetron HCl (Zofran Injection) 4 mg IVPB Q4H PRN PRN Reason: NAUSEA AND/OR VOMITING Last Admin: 05/15/18 11:52 Dose: 4 mg Pantoprazole Sodium (Protonix -) 20 mg PO DAILY [facility] Last Admin: 05/17/18 10:21 Dose: 20 mg Ramipril (Altace -) 5 mg PO DAILY [facility] Last Admin: 05/17/18 10:22 Dose: 5 mg Sevelamer Carbonate (Renvela -) 800 mg PO TIDCM [facility] Last Admin: 05/17/18 17:01 Dose: Not Given - Objective Vital Signs: Vital Signs Temperature 97.6 F 05/17/18 18:06 Pulse Rate 72 05/17/18 18:06 Respiratory Rate 18 05/17/18 18:06 Blood Pressure 133/61 05/17/18 18:06 O2 Sat by Pulse Oximetry (%) 97 05/17/18 09:00 Constitutional: Yes: No Distress HENT: Yes: Atraumatic Neck: Yes: Supple Cardiovascular: Yes: Regular Rate and Rhythm Respiratory: Yes: CTA Bilaterally Gastrointestinal: Yes: Normal Bowel Sounds Neurological: Yes: Alert, Oriented Labs: CBC, BMP 05/15/18 15:45 05/15/18 14:00 INR, PTT INR 1.65 (0.83-1.09) H 05/17/18 06:53 Problem List - Problems (1) Asthma Assessment/Plan: on inhalers Code(s): J45.909 - UNSPECIFIED ASTHMA, UNCOMPLICATED Qualifiers: Asthma severity: unspecified severity Asthma persistence: intermittent Asthma complication type: unspecified Qualified Code(s): J45.20 - Mild intermittent asthma, uncomplicated (2) Diabetes Assessment/Plan: on meds Code(s): E11.9 - TYPE 2 DIABETES MELLITUS WITHOUT COMPLICATIONS Qualifiers: Diabetes mellitus type: type 2 Diabetes mellitus truck terminal manager insulin use: without [place] use Diabetes mellitus complication status: with unspecified complications Qualified Code(s): E11.8 - Type 2 diabetes mellitus with unspecified complications (3) ESRD (end stage renal disease) Assessment/Plan: on HD Code(s): N18.6 - END STAGE RENAL DISEASE (4) GERD (gastroesophageal reflux disease) Code(s): K21.9 - GASTRO-ESOPHAGEAL REFLUX DISEASE WITHOUT ESOPHAGITIS Qualifiers: Esophagitis presence: esophagitis presence not specified Qualified Code(s) : K21.9 - Gastro-esophageal reflux disease without esophagitis (5) S/P CABG x 3 Code(s): Z95.1 - PRESENCE OF AORTOCORONARY BYPASS GRAFT (6) Wound of foot Assessment/Plan: iv abx for 5 more weeks Code(s): S91.309A - UNSPECIFIED OPEN WOUND, UNSPECIFIED FOOT, INITIAL ENCOUNTER Assessment/Plan patient wants to talk to dr perdomo about angiogram refusing heparin drip
[2018-05-17] MEDS ORDERED: HEPARIN SOD,PORK IN 0.45% NACL 25,000 UNITS/500 ML INFUS.BAG IVPB SCH (19:30)
[2018-05-17] MEDS ORDERED: INSULIN (NOVOLOG) ASPART 100 UNITS/ML 10ML VIAL ONE (21:19)
[2018-05-17] MEDS: ATORVASTATIN CA 10 MG TABLET (FP) PO SCH (22:32)
[2018-05-17] MEDS: MICONAZOLE NITRATE 2% VAGINAL CREAM 45 GM TUBE PV SCH (22:32)
[2018-05-18] MEDS: diphenhydrAMINE HCL 25 MG CAPSULE (FP) PO PRN (00:30)
[2018-05-18] MEDS: INSULIN SLIDING SCALE (NOVOLOG) 1 VIAL SQ SCH ×3 (06:06→17:31)
[2018-05-18] MEDS: INSULIN (LEVEMIR) 100 UNITS/ML UNITS SQ SCH (06:06)
[2018-05-18] MEDS: LEVOTHYROXINE NA 75 MCG TABLET (FP) PO SCH (06:07)
[2018-05-18 08:50] LABS: INR 1.8 (0.83-1.09); PROTHROMBIN TIME (PATIENT) 21.4 SEC (9.7-13.0)
[2018-05-18] MEDS: SEVELAMER CARBONATE 800 MG TAB (FP) PO SCH ×3 (09:12→18:12)
[2018-05-18] MEDS: ACETAMINOPHEN WITH CODEINE 300MG/30MG TABLET PO PRN ×2 (09:12→15:11)
[2018-05-18] MEDS: COLLAGENASE CLOSTRIDIUM HIST. 30 GRAMS TUBE TP SCH (09:14)
[2018-05-18] MEDS: RAMIPRIL 5 MG CAPSULE (FP) PO SCH ×2 (09:14→13:59)
[2018-05-18] MEDS: NYSTATIN POWDER 100,000 UNITS/GM - 15 GM TOPICAL POWDER TP SCH (09:14)
[2018-05-18] MEDS: METOPROLOL TARTRATE 50 MG TABLET (FP) PO SCH ×2 (09:15→13:58)
[2018-05-18] MEDS: PANTOPRAZOLE 20 MG TABLET (FP) PO SCH (09:15)
[2018-05-18] MEDS: DOCUSATE SODIUM 100 MG CAPSULE (FP) PO SCH (09:15)
[2018-05-18] MEDS: DULoxetine HCL 20 MG CAPSULE.DR (FP) PO SCH ×2 (09:15→14:00)
[2018-05-18] MEDS: FUROSEMIDE 20 MG TABLET (FP) PO SCH (09:15)
[2018-05-18] MEDS ORDERED: SODIUM CHLORIDE 250 ML IV PRN (09:50)
[2018-05-18] MEDS ORDERED: HEPARIN NA (PORCINE) 5,000 UNITS/ML 1ML VIAL SQ SCH ×2 (10:00)
[2018-05-18] MEDS ORDERED: EPOETIN ALFA 3,000 UNIT/1 ML ML IVPUSH ONE (10:00)
[2018-05-18 10:20] LABS: HEMATOCRIT 26.1 % (32.4-45.2); HEMOGLOBIN 8.5 GM/dL (10.7-15.3); MCH 32.8 pg (25.7-33.7); MCHC 32.5 g/dl (32.0-36.0); MEAN PLT VOLUME 8.8 fl (7.5-11.1); PLATELET COUNT 157 K/MM3 (134-434); RBC 2.59 M/mm3 (3.60-5.2); RDW 22.6 % (11.6-15.6); WHITE BLOOD COUNT 5.7 K/mm3 (4.0-10.0)
[2018-05-18 10:53] LABS: ANION GAP 6 MMOL/L (8-16); BLOOD UREA NITROGEN 20 mg/dL (7-18); CALCIUM 8.1 mg/dL (8.5-10.1); CHLORIDE 102 mmol/L (98-107); CO2 29 mmol/L (21-32); CREATININE 4.3 mg/dL (0.55-1.3); GLUCOSE,RANDOM 155 mg/dL (74-106); SODIUM 137 mmol/L (136-145)
[2018-05-18 11:28] VITALS: TEMP 98.1
--- NOTE | 2018-05-18 12:17 | PN ---
Progress Note, Physician History of Present Illness: patient stable no new issues - Current Medication List Current Medications: Active Medications Acetaminophen/Codeine Phosphate (Tylenol # 3 -) 1 tab PO Q6H PRN PRN Reason: PAIN LEVEL 1-5 Last Admin: 05/18/18 09:12 Dose: 1 tab Atorvastatin Calcium (Lipitor -) 10 mg PO [facility] Last Admin: 05/17/18 22:32 Dose: 10 mg Collagenase (Santyl -) 1 applic TP DAILY [facility]; Protocol Last Admin: 05/18/18 09:14 Dose: 1 applic Diphenhydramine HCl (Benadryl -) 25 mg PO Q6H PRN PRN Reason: ITCHING Last Admin: 05/18/18 00:30 Dose: 25 mg Docusate Sodium (Colace -) 100 mg PO BID [facility] Last Admin: 05/18/18 09:15 Dose: Not Given Duloxetine HCl (Cymbalta -) 20 mg PO DAILY [facility] Last Admin: 05/18/18 09:15 Dose: Not Given Furosemide (Lasix -) 60 mg PO DAILY [facility] Last Admin: 05/18/18 09:15 Dose: Not Given Heparin Sodium (Porcine) (Heparin -) 5,000 unit SQ BID [facility] Last Admin: 05/18/18 09:15 Dose: Not Given Cefepime HCl 1 gm/ Dextrose 100 mls @ 200 mls/hr IVPB DAILY@1800 [facility]; Protocol Last Admin: 05/17/18 17:00 Dose: 200 mls/hr Insulin Aspart (Novolog Vial Sliding Scale -) 1 vial SQ [facility]; Protocol Last Admin: 05/18/18 06:06 Dose: 2 unit Insulin Detemir (Levemir Vial) 30 units SQ [facility] Last Admin: 05/18/18 06:06 Dose: 30 units Levothyroxine Sodium (Synthroid -) 75 mcg PO ACBK [facility] Last Admin: 05/18/18 06:07 Dose: 75 mcg Loperamide HCl (Imodium -) 2 mg PO Q6H PRN PRN Reason: DIARRHEA Last Admin: 05/17/18 11:27 Dose: 2 mg Metoprolol Tartrate (Lopressor -) 50 mg PO BID [facility] Last Admin: 05/18/18 09:15 Dose: Not Given Miconazole Nitrate (Monistat-7 Vaginal Cream -) 1 applic PV [facility] Stop: 05/20/18 22:01 Last Admin: 05/17/18 22:32 Dose: Not Given Nystatin (Nystop Powder -) 1 applic TP BID [facility] Last Admin: 05/18/18 09:14 Dose: 1 applic Ondansetron HCl (Zofran Injection) 4 mg IVPB Q4H PRN PRN Reason: NAUSEA AND/OR VOMITING Last Admin: 05/15/18 11:52 Dose: 4 mg Pantoprazole Sodium (Protonix -) 20 mg PO DAILY [facility] Last Admin: 05/18/18 09:15 Dose: Not Given Ramipril (Altace -) 5 mg PO DAILY [facility] Last Admin: 05/18/18 09:14 Dose: Not Given Sevelamer Carbonate (Renvela -) 800 mg PO TIDCM [facility] Last Admin: 05/18/18 09:12 Dose: Not Given Warfarin Sodium (Coumadin -) 2.5 mg PO DAILY@1800 [facility] - Objective Vital Signs: Vital Signs Temperature 98.1 F 05/18/18 09:35 Pulse Rate 80 05/18/18 10:40 Respiratory Rate 18 05/18/18 10:40 Blood Pressure 130/67 05/18/18 10:40 O2 Sat by Pulse Oximetry (%) 100 05/17/18 21:00 Constitutional: Yes: No Distress, Calm Cardiovascular: Yes: Regular Rate and Rhythm Respiratory: Yes: Regular, CTA Bilaterally Gastrointestinal: Yes: Normal Bowel Sounds, Soft Musculoskeletal: Yes: WNL Extremities: Yes: Other Wound/Incision: Yes: Dressing Dry and Intact Neurological: Yes: Alert, Oriented Psychiatric: Yes: Alert, Oriented Labs: CBC, BMP 05/18/18 09:40 05/18/18 09:45 INR, PTT INR 1.80 (0.83-1.09) H 05/18/18 08:10 Assessment/Plan Problem List - Problems (1) Asthma Code(s): J45.909 - UNSPECIFIED ASTHMA, UNCOMPLICATED Qualifiers: Asthma severity: unspecified severity Asthma persistence: intermittent Asthma complication type: unspecified Qualified Code(s): J45.20 - Mild intermittent asthma, uncomplicated (2) Diabetes Code(s): E11.9 - TYPE 2 DIABETES MELLITUS WITHOUT COMPLICATIONS Qualifiers: Diabetes mellitus type: type 2 Diabetes mellitus rat exterminator insulin use: without long-term use Diabetes mellitus complication status: with unspecified complications Qualified Code(s): E11.8 - Type 2 diabetes mellitus with unspecified complications (3) ESRD (end stage renal disease) Code(s): N18.6 - END STAGE RENAL DISEASE (4) GERD (gastroesophageal reflux disease) Code(s): K21.9 - GASTRO-ESOPHAGEAL REFLUX DISEASE WITHOUT ESOPHAGITIS Qualifiers: Esophagitis presence: esophagitis presence not specified Qualified Code(s) : K21.9 - Gastro-esophageal reflux disease without esophagitis (5) S/P CABG x 3 Code(s): Z95.1 - PRESENCE OF AORTOCORONARY BYPASS GRAFT (6) Wound of foot Code(s): S91.309A - UNSPECIFIED OPEN WOUND, UNSPECIFIED FOOT, INITIAL ENCOUNTER 7 osteo of the foot plan continue current mgmt abx as planned wound care rest as per the team
[2018-05-18] MEDS ORDERED: PT OWN MED DRAWER 7, Y5N ONE ×2 (12:32→13:48)
[2018-05-18 13:11] VITALS: PULSE 70
--- NOTE | 2018-05-18 13:35 | PN ---
Progress Note, Physician - Current Medication List Current Medications: Active Medications Acetaminophen/Codeine Phosphate (Tylenol # 3 -) 1 tab PO Q6H PRN PRN Reason: PAIN LEVEL 1-5 Last Admin: 05/18/18 09:12 Dose: 1 tab Atorvastatin Calcium (Lipitor -) 10 mg PO [facility] Last Admin: 05/17/18 22:32 Dose: 10 mg Collagenase (Santyl -) 1 applic TP DAILY [facility]; Protocol Last Admin: 05/18/18 09:14 Dose: 1 applic Diphenhydramine HCl (Benadryl -) 25 mg PO Q6H PRN PRN Reason: ITCHING Last Admin: 05/18/18 00:30 Dose: 25 mg Docusate Sodium (Colace -) 100 mg PO BID [facility] Last Admin: 05/18/18 09:15 Dose: Not Given Duloxetine HCl (Cymbalta -) 20 mg PO DAILY [facility] Last Admin: 05/18/18 09:15 Dose: Not Given Furosemide (Lasix -) 60 mg PO DAILY [facility] Last Admin: 05/18/18 09:15 Dose: Not Given Heparin Sodium (Porcine) (Heparin -) 5,000 unit SQ BID [facility] Last Admin: 05/18/18 09:15 Dose: Not Given Cefepime HCl 1 gm/ Dextrose 100 mls @ 200 mls/hr IVPB DAILY@1800 [facility]; Protocol Last Admin: 05/17/18 17:00 Dose: 200 mls/hr Insulin Aspart (Novolog Vial Sliding Scale -) 1 vial SQ [facility]; Protocol Last Admin: 05/18/18 12:46 Dose: Not Given Insulin Detemir (Levemir Vial) [address] [facility] Last Admin: 05/18/18 06:06 Dose: 30 units Levothyroxine Sodium (Synthroid -) 75 mcg PO ACBK [facility] Last Admin: 05/18/18 06:07 Dose: 75 mcg Loperamide HCl (Imodium -) 2 mg PO Q6H PRN PRN Reason: DIARRHEA Last Admin: 05/17/18 11:27 Dose: 2 mg Metoprolol Tartrate (Lopressor -) 50 mg PO BID [facility] Last Admin: 05/18/18 09:15 Dose: Not Given Miconazole Nitrate (Monistat-7 Vaginal Cream -) 1 applic PV [facility] Stop: 05/20/18 22:01 Last Admin: 05/17/18 22:32 Dose: Not Given Nystatin (Nystop Powder -) 1 applic TP BID [facility] Last Admin: 05/18/18 09:14 Dose: 1 applic Ondansetron HCl (Zofran Injection) 4 mg IVPB Q4H PRN PRN Reason: NAUSEA AND/OR VOMITING Last Admin: 05/15/18 11:52 Dose: 4 mg Pantoprazole Sodium (Protonix -) 20 mg PO DAILY [facility] Last Admin: 05/18/18 09:15 Dose: Not Given Ramipril (Altace -) 5 mg PO DAILY [facility] Last Admin: 05/18/18 09:14 Dose: Not Given Sevelamer Carbonate (Renvela -) 800 mg PO TIDCM [facility] Last Admin: 05/18/18 12:46 Dose: Not Given Warfarin Sodium (Coumadin -) 2.5 mg PO DAILY@1800 [facility] - Objective Vital Signs: Vital Signs Temperature 98.1 F 05/18/18 09:35 Pulse Rate 70 05/18/18 13:00 Respiratory Rate 18 05/18/18 13:00 Blood Pressure 122/78 05/18/18 13:00 O2 Sat by Pulse Oximetry (%) 100 05/17/18 21:00 Labs: CBC, BMP 05/18/18 09:40 05/18/18 09:45 INR, PTT INR 1.80 (0.83-1.09) H 05/18/18 08:10 Problem List - Problems (1) Asthma Code(s): J45.909 - UNSPECIFIED ASTHMA, UNCOMPLICATED Qualifiers: Asthma severity: unspecified severity Asthma persistence: intermittent Asthma complication type: unspecified Qualified Code(s): J45.20 - Mild intermittent asthma, uncomplicated (2) Diabetes Code(s): E11.9 - TYPE 2 DIABETES MELLITUS WITHOUT COMPLICATIONS Qualifiers: Diabetes mellitus type: type 2 Diabetes mellitus assistant terminal manager insulin use: without longterm use Diabetes mellitus complication status: with unspecified complications Qualified Code(s): E11.8 - Type 2 diabetes mellitus with unspecified complications (3) ESRD (end stage renal disease) Code(s): N18.6 - END STAGE RENAL DISEASE (4) GERD (gastroesophageal reflux disease) Code(s): K21.9 - GASTRO-ESOPHAGEAL REFLUX DISEASE WITHOUT ESOPHAGITIS Qualifiers: Esophagitis presence: esophagitis presence not specified Qualified Code(s) : K21.9 - Gastro-esophageal reflux disease without esophagitis (5) S/P CABG x 3 Code(s): Z95.1 - PRESENCE OF AORTOCORONARY BYPASS GRAFT (6) Wound of foot Code(s): S91.309A - UNSPECIFIED OPEN WOUND, UNSPECIFIED FOOT, INITIAL ENCOUNTER
--- NOTE | 2018-05-18 14:25 | PN ---
Progress Note, Physician History of Present Illness: Pt seen and examined at bedside. She is tolerating HD. SHe denies fevers or chills. - Current Medication List Current Medications: Active Medications Acetaminophen/Codeine Phosphate (Tylenol # 3 -) 1 tab PO Q6H PRN PRN Reason: PAIN LEVEL 1-5 Last Admin: 05/18/18 09:12 Dose: 1 tab Atorvastatin Calcium (Lipitor -) 10 mg PO HS [facility] Last Admin: 05/17/18 22:32 Dose: 10 mg Collagenase (Santyl -) 1 applic TP DAILY [facility]; Protocol Last Admin: 05/18/18 09:14 Dose: 1 applic Diphenhydramine HCl (Benadryl -) 25 mg PO Q6H PRN PRN Reason: ITCHING Last Admin: 05/18/18 00:30 Dose: 25 mg Docusate Sodium (Colace -) 100 mg PO BID [facility] Last Admin: 05/18/18 09:15 Dose: Not Given Duloxetine HCl (Cymbalta -) 20 mg PO DAILY [facility] Last Admin: 05/18/18 14:00 Dose: 20 mg Furosemide (Lasix -) 60 mg PO DAILY [facility] Last Admin: 05/18/18 09:15 Dose: Not Given Heparin Sodium (Porcine) (Heparin -) 5,000 unit SQ BID [facility] Last Admin: 05/18/18 09:15 Dose: Not Given Cefepime HCl 1 gm/ Dextrose 100 mls @ 200 mls/hr IVPB DAILY@1800 [facility]; Protocol Last Admin: 05/17/18 17:00 Dose: 200 mls/hr Insulin Aspart (Novolog Vial Sliding Scale -) 1 vial SQ [facility]; Protocol Last Admin: 05/18/18 12:46 Dose: Not Given Insulin Detemir (Levemir Vial) 30 units SQ BK [facility] Last Admin: 05/18/18 06:06 Dose: 30 units Levothyroxine Sodium (Synthroid -) 75 mcg PO ACBK [facility] Last Admin: 05/18/18 06:07 Dose: 75 mcg Loperamide HCl (Imodium -) 2 mg PO Q6H PRN PRN Reason: DIARRHEA Last Admin: 05/17/18 11:27 Dose: 2 mg Metoprolol Tartrate (Lopressor -) 50 mg PO BID [facility] Last Admin: 05/18/18 13:58 Dose: 50 mg Miconazole Nitrate (Monistat-7 Vaginal Cream -) 1 applic PV HS [facility] Stop: 05/20/18 22:01 Last Admin: 05/17/18 22:32 Dose: Not Given Nystatin (Nystop Powder -) 1 applic TP BID [facility] Last Admin: 05/18/18 09:14 Dose: 1 applic Ondansetron HCl (Zofran Injection) 4 mg IVPB Q4H PRN PRN Reason: NAUSEA AND/OR VOMITING Last Admin: 05/15/18 11:52 Dose: 4 mg Pantoprazole Sodium (Protonix -) 20 mg PO DAILY [facility] Last Admin: 05/18/18 09:15 Dose: Not Given Ramipril (Altace -) 5 mg PO DAILY [facility] Last Admin: 05/18/18 13:59 Dose: 5 mg Sevelamer Carbonate (Renvela -) 800 mg PO TIDCM [facility] Last Admin: 05/18/18 12:46 Dose: Not Given Warfarin Sodium (Coumadin -) 2.5 mg PO DAILY@1800 [facility] - Objective Vital Signs: Vital Signs Temperature 98.1 F 05/18/18 09:35 Pulse Rate 70 05/18/18 13:00 Respiratory Rate 18 05/18/18 13:00 Blood Pressure 122/78 05/18/18 13:00 O2 Sat by Pulse Oximetry (%) 100 05/17/18 21:00 Constitutional: Yes: Calm Eyes: Yes: Conjunctiva Clear HENT: Yes: Atraumatic Cardiovascular: Yes: S1, S2 Respiratory: Yes: CTA Bilaterally Gastrointestinal: Yes: Soft Genitourinary: Yes: WNL Musculoskeletal: Yes: WNL Edema: Yes Edema: LLE: Trace, RLE: Trace Neurological: Yes: Oriented Psychiatric: Yes: Oriented Labs: CBC, BMP 05/18/18 09:40 05/18/18 09:45 INR, PTT INR 1.80 (0.83-1.09) H 05/18/18 08:10 Problem List - Problems (1) Diabetes Code(s): E11.9 - TYPE 2 DIABETES MELLITUS WITHOUT COMPLICATIONS Qualifiers: Diabetes mellitus type: type 2 Diabetes mellitus chcf insulin use: without intermission coordinator use Diabetes mellitus complication status: with unspecified complications Qualified Code(s): E11.8 - Type 2 diabetes mellitus with unspecified complications (2) ESRD (end stage renal disease) Code(s): N18.6 - END STAGE RENAL DISEASE Assessment/Plan Current Medications Generic Name Dose Route Start Last Admin Trade Name Freq PRN Reason Stop Dose Admin Acetaminophen/Codeine Phosphate 1 tab 05/17/18 11:10 05/18/18 09:12 Tylenol # 3 - PO 1 tab Q6H PRN Administration PAIN LEVEL 1-5 Atorvastatin Calcium 10 mg 05/10/18 22:00 05/17/18 22:32 Lipitor - PO 10 mg HS [facility] Administration Collagenase 1 applic 05/13/18 10:00 05/18/18 09:14 Santyl - TP 1 applic DAILY [facility] Administration Protocol Diphenhydramine HCl 25 mg 05/17/18 16:34 05/18/18 00:30 Benadryl - PO 25 mg Q6H PRN Administration ITCHING Docusate Sodium 100 mg 05/10/18 22:00 05/18/18 09:15 Colace - PO Not Given BID [facility] Duloxetine HCl 20 mg 05/11/18 10:00 05/18/18 14:00 Cymbalta - PO 20 mg DAILY [facility] Administration Furosemide 60 mg 05/11/18 12:57 05/18/18 09:15 Lasix - PO Not Given DAILY [facility] Heparin Sodium (Porcine) 5,000 unit 05/18/18 10:00 05/18/18 09:15 Heparin - SQ Not Given BID [facility] Cefepime HCl 1 gm/ Dextrose 100 mls @ 200 mls/hr 05/17/18 18:00 05/17/18 17: 00 IVPB 200 mls/hr DAILY@1800 [facility] Administration Protocol Insulin Aspart 1 vial 05/10/18 22:00 05/18/18 12:46 Novolog Vial Sliding Scale - SQ Not Given [facility] Protocol Insulin Detemir 30 units 05/11/18 07:00 05/18/18 06:06 Levemir Vial SQ 30 units ACBK [facility] Administration Levothyroxine Sodium 75 mcg 05/11/18 07:00 05/18/18 06:07 Synthroid - PO 75 mcg ACBK [facility] Administration Loperamide HCl 2 mg 05/17/18 11:09 05/17/18 11:27 Imodium - PO 2 mg Q6H PRN Administration DIARRHEA Metoprolol Tartrate 50 mg 05/10/18 22:00 05/18/18 13:58 Lopressor - PO 50 mg BID [facility] Administration Miconazole Nitrate 1 applic 05/15/18 02:15 05/17/18 22:32 Monistat-7 Vaginal Cream - PV 05/20/18 22:01 Not Given HS [facility] Nystatin 1 applic 05/11/18 10:00 05/18/18 09:14 Nystop Powder - TP 1 applic BID [facility] Administration Ondansetron HCl 4 mg 05/13/18 16:31 05/15/18 11:52 Zofran Injection IVPB 4 mg Q4H PRN Administration NAUSEA AND/OR VOMITING Pantoprazole Sodium 20 mg 05/11/18 10:00 05/18/18 09:15 Protonix - PO Not Given DAILY [facility] Ramipril 5 mg 05/11/18 10:00 05/18/18 13:59 Altace - PO 5 mg DAILY [facility] Administration Sevelamer Carbonate 800 mg 05/11/18 08:00 05/18/18 12:46 Renvela - PO Not Given TIDCM [facility] Warfarin Sodium 2.5 mg 05/18/18 18:00 Coumadin - PO DAILY@1800 [facility] Impression 1. ESRD 2. HTN 3. DM 4. foot ulcer 5. obesity 6. anemia Plan - pt tolerated HD today - pt today denies dysuria, she did not give urine for ua - abx per ID - renal diet - lasix on non HD days - HD 3:30 permacath, 2 k bath
[2018-05-18 15:21] VITALS: BP 153/69
[2018-05-18] MEDS ORDERED: CEFEPIME HCL 1 GM VIAL (RESTRICTED TO ID) ONE (17:09)
[2018-05-18] MEDS ORDERED: DEXTROSE 5%-WATER 100 ML IVPB ONE (17:09)
[2018-05-18] MEDS: CEFEPIME 1 GM in DEXTROSE 5%-WATER 100 ML IVPB SCH (17:20)
[2018-05-18] MEDS ORDERED: WARFARIN NA 2.5 MG TABLET (FP) PO SCH (18:00)
--- NOTE | 2018-05-18 18:20 | DS ---
Physical Examination Vital Signs: Vital Signs Temperature 98.1 F 05/18/18 09:35 Pulse Rate 70 05/18/18 13:00 Respiratory Rate 18 05/18/18 13:00 Blood Pressure 153/69 05/18/18 15:20 O2 Sat by Pulse Oximetry (%) 100 05/18/18 09:00 Labs: CBC, BMP 05/18/18 09:40 05/18/18 09:45 Discharge Summary Reason For Visit: WOUND OF FOOT,LOCAL INFECTION OF WOUND, END STAGE Current Active Problems Asthma (Acute) CAD (coronary artery disease) (Acute) Diabetes (Acute) Diabetic foot ulcer (Acute) ESRD (end stage renal disease) (Acute) GERD (gastroesophageal reflux disease) (Acute) S/P CABG x 3 (Acute) Wound of foot (Acute) Condition: Fair - Instructions Referrals: Sandee Hernandes MD [Staff Physician] - Renée Kent MD [Staff Physician] - - Home Medications Comprehensive Discharge Medication List: Ambulatory Orders Acetaminophen W/ Codeine #3 [Tylenol # 3 -] 1 tab PO Q6H 05/10/18 Acetaminophen [Tylenol] 325 mg PO BID 05/10/18 Bisacodyl [Dulcolax -] 10 mg PO ONCE 05/10/18 Duloxetine HCl [Cymbalta] 20 mg PO DAILY 05/10/18 Fluticasone/Salmeterol [Airduo Respiclick 113-14 Mcg] 1 each IH DAILY 05/10/18 Furosemide 60 mg PO DAILY 05/10/18 Insulin Glargine,Hum.rec.anlog [Basaglar Kwikpen U-100] 30 unit SQ DAILY Levothyroxine [Synthroid -] 75 mcg PO DAILY 05/10/18 Lorazepam [Ativan] 1 mg PO ASDIR 05/10/18 Magnesium Hydrox 2400MG/30Ml [Milk of Magnesia -] 30 ml PO ONCE 05/10/18 Metoprolol Tartrate 50 mg PO BID 05/10/18 Novolog - 05/10/18 Nystatin 100,000 unit PO BID 05/10/18 Omeprazole Magnesium [Prilosec Otc] 20 mg PO DAILY 05/10/18 Ramipril [Altace] 5 mg PO DAILY 05/10/18 Sevelamer HCl [Renagel] 800 mg PO TID 05/10/18 Silver Sulfadiazine 1% Top Cr [Silvadene -] 1 applic TP DAILY 05/10/18 Simvastatin 20 mg PO DAILY 05/10/18 Tiotropium [place] [Spiriva] 1 inh PO DAILY 05/10/18 Warfarin Na [Coumadin] 2.5 mg PO HS 05/10/18 Zinc Sulfate [Zinc-220] 220 mg PO DAILY 05/10/18 Piperacillin/Tazob 2.25 gm [Zosyn -] 2.25 gm IVPB Q6H-IV vial 05/13/18 dc
[2018-05-18 18:24] LABS: URINE APPEARANCE CLOUDY; URINE BILIRUBIN NEGATIVE (NEGATIVE); URINE COLOR YELLOW; URINE GLUCOSE (UA) 100 (NEGATIVE); URINE KETONE TRACE (NEGATIVE)
[2018-05-18 18:25] LABS: URINE LEUK ESTERASE LARGE (NEGATIVE); URINE NITRITE NEGATIVE (NEGATIVE); URINE PROTEIN 300 (NEGATIVE); URINE UROBILINOGEN 0.2 mg/dL (0.2-1.0)
[2018-05-18 18:26] LABS: EPI CELLS 30.1 /HPF (0-5); URINE BACTERIA 27.4 /hpf (NEGATIVE); URINE CASTS 4326.34 /hpf (0-8); URINE RBC 93.4 /hpf (0-4); URINE WBC 4276.5 /hpf (0-5)
== END 2018-05-18 21:02 | DRG 638 ==
LOC: JER 14:02 → JERBED 16:29 → J7W 18:43
PROVIDERS: ADMIT Internal Medicine; ATTEND Internal Medicine
PROC: 5A1D70Z Performance of Urinary Filtration, Intermittent, Less than 6 Hours Per Day (ICD-10-PCS; principal; 2018-05-11)
PROC: 5A1D70Z Performance of Urinary Filtration, Intermittent, Less than 6 Hours Per Day (ICD-10-PCS; 2018-05-13)
PROC: 05HN33Z Insertion of Infusion Device into Left Internal Jugular Vein, Percutaneous Approach (ICD-10-PCS; 2018-05-14)
PROC: B544ZZA Ultrasonography of Left Jugular Veins, Guidance (ICD-10-PCS; 2018-05-14)
PROC: 5A1D70Z Performance of Urinary Filtration, Intermittent, Less than 6 Hours Per Day (ICD-10-PCS; 2018-05-15)
PROC: 5A1D70Z Performance of Urinary Filtration, Intermittent, Less than 6 Hours Per Day (ICD-10-PCS; 2018-05-17)
DX: E11.69 Type 2 diabetes mellitus with other specified complication (principal); L97.418 Non-pressure chronic ulcer of right heel and midfoot with other specified severity; I12.0 Hypertensive chronic kidney disease with stage 5 chronic kidney disease or end stage renal disease; Z68.41 Body mass index [BMI] 40.0-44.9, adult; M86.10 Other acute osteomyelitis, unspecified site; E11.621 Type 2 diabetes mellitus with foot ulcer; I25.10 Atherosclerotic heart disease of native coronary artery without angina pectoris; E11.22 Type 2 diabetes mellitus with diabetic chronic kidney disease; N18.6 End stage renal disease; E11.40 Type 2 diabetes mellitus with diabetic neuropathy, unspecified; E78.5 Hyperlipidemia, unspecified; E03.9 Hypothyroidism, unspecified; K21.9 Gastro-esophageal reflux disease without esophagitis; I25.2 Old myocardial infarction; N25.0 Renal osteodystrophy; F20.9 Schizophrenia, unspecified; E66.8 Other obesity; J45.20 Mild intermittent asthma, uncomplicated; D64.9 Anemia, unspecified; S91.309A Unspecified open wound, unspecified foot, initial encounter; L29.8 Other pruritus; T36.0X5A Adverse effect of penicillins, initial encounter; Z99.2 Dependence on renal dialysis; Z95.1 Presence of aortocoronary bypass graft; Z95.5 Presence of coronary angioplasty implant and graft
CPT/HCPCS: 36415; 36558; 71045-TC-FY; 73630-TC-RT-FY; 73718-TC-RT; 75635-TC; 77001-TC-FY; 80048; 80053; 81003; 82550; 82962; 83735; 84100; 84484; 85025; 85027; 85610; 85651; 85730; 86140; 86704; 86706; 86708; 86803; 86850; 86900; 86901; 87040; 87070; 87086; 87186; 87205; 87324; 87340; 87449; 93005; 93010; 97116-GP; 97162-GP; 99281-25; C1751; G0480; J0885; J1644